=== PATIENT | female | born 1970 | race Caucasian/White ===

== ENCOUNTER → 2020-04-12 09:19 | Outpatient (CLI) | payer OTHER, SELFPAY ==
--- NOTE | ~2020-04-12 | MR_ITS ---
. EXAMINATION: MR foot RT wo con DATE: 04/12/2020 10:15 INDICATION: Right foot pain. TECHNIQUE: Magnetic resonance imaging (MRI) of the right foot was performed without intravenous contr ast. Sequences included sagittal T1-weighted FSE and STIR FSE, long-axis PD-weighted FS FSE and PD-we ighted FSE, and short-axis PD-weighted FS FSE and T1-weighted FSE. COMPARISON: Right foot radiographs 03/13/2019 FINDINGS: Medial ankle ligaments: The superficial and deep components of the deltoid ligament are intact. Lateral ankle ligaments: There are changes of prior sprain of anterior talofibular ligament characterized by increased signal intensity. Calcaneofibular ligament is normal. There are changes of prior sprain of posterior talofib ular ligament characterized by thickening and increased signal intensity. There are changes of prior sprains of anterior and posterior tibiofibular ligaments characterized by increased signal intensity. Tendons: There is a longitudinal split tear of peroneus brevis tendon. Peroneus longus tendon is normal. The a nterior and medial ankle tendons are normal. There is mild Achilles tendinopathy. There is a skin mar ker superficial to the Achilles tendon. Plantar fascia: There is thickening and increased signal involving central band of plantar fascia, consistent with fa sciitis. There is an enthesophyte at the calcaneal attachment. There is bone marrow edema at the calc aneal attachment. Bones/other: Bone alignment is normal. No fracture. There is mild osteoarthritis of first metatarsophalangeal join t. The talar dome is normal. Fluid: There is no joint effusion. IMPRESSION: 1. Mild Achilles tendinopathy. 2. Plantar fasciitis. 3. Changes of prior lateral ankle sprain. 4. Longitudinal split tear of peroneus brevis tendon. Reviewed, dictated and finalized at location A.
== END ==
PROVIDERS: PCP Family Medicine; Visit Provider Podiatrist Foot & Ankle Surgery
DX: M79.671 Pain in right foot (principal); M72.2 Plantar fascial fibromatosis
CPT/HCPCS: 73718

== ENCOUNTER 2020-09-13 01:18 | Day surgery (SDC) | payer OTHER, SELFPAY ==
[2020-09-09 13:42] VITALS: BMI 28.0
--- NOTE | 2020-09-09 13:43 | PC.NURSE ---
PT STATES SHE WAS COVID POSITIVE JUNE 19, 2020. PER REBEKAH WATSON RN, PT MUST PROVIDE A LETTER WITH POSITIVE RESULTS WITH DATE OR SHE WILL NEED TO BE COVID TESTED AT HER APPOINTMENT TOMORROW, 09/10/20 AT 0825. PT NOTIFIED IF SHE IS STILL POSITIVE PER TEST RESULTS TOMORROW, SURGERY WILL LIKELY BE CANCELLED FOR 30 DAYS PER REQUIREMENTS AT THIS TIME. PT GIVEN ALINE DURBIN RN LIASON PHONE NUMBER AND FAX NUMBER TO SEND RESULTS. PT VERBALIZED UNDERSTANDING.
--- NOTE | 2020-09-12 15:32 | WPDANESEPPF ---
Anes - Initial Pre Proc Eval Procedure: Operation Date: 09/13/20 10:30 Proposed Procedures p Partial Plantar Fasciectomy Right Foot - Shakeel Herrmann JR, MD s Tarsal Tunnel Release Right Foot - Shakeel Herrmann JR, MD Date/Time: 09/12/20 15:32 Surgeon: Shakeel Herrmann JR, MD Pre Op Diagnosis: Plantar Fasciitis Right Foot, Tarsal Tunnel Syndro Patient Data Age: 49 Gender: F Height: 1.68 m Weight: 79 kg Allergies Allergy/AdvReac Type Severity Reaction Status Date / Time codeine AdvReac Severe Nausea and Verified 09/13/20 08:55 Vomiting Home Medications Medication Instructions Recorded Confirmed Type sumatriptan succinate 100 mg tablet See Rx Instructions PO .COMPLEX 07/01/20 09/13/20 Rx #10 tablet cetirizine [Zyrtec] 10 mg PO DAILY PRN 09/09/20 09/09/20 History erythromycin 50 mg PO HS 09/09/20 09/09/20 History famotidine [Pepcid] 20 mg PO HS 09/09/20 09/09/20 History omeprazole 20 mg PO HS 09/09/20 09/09/20 History pseudoephedrine HCl [Sudafed 12 120 mg PO Q12-24H PRN 09/09/20 09/09/20 History Hour] albuterol sulfate 90 mcg/actuation 2 puff INHALATION Q4-6H PRN #8.5 g 09/12/20 09/13/20 Rx aerosol inhaler Patient hx anesthesia problems: none Family hx anesthesia problems: none PMFSH Past Medical History Medical History (Updated 09/12/20 @ 15:33 by Kamron Nelson MD) Anxiety Asthma Endometriosis Overweight (BMI 25.0-29.9) PONV (postoperative nausea and vomiting) Family History Family History Father Hypertension Mother Hypertension Social History Social History Smoking status: Never smoker Alcohol intake: never Substance use: never Living arrangements: with family Spiritual care concerns: No Anes - Eval Final PreProcedure Day of Procedure 09/12/20 15:32 Patient weight: overweight Heart: regular rate and rhythm Lungs: clear to auscultation and normal air movement Airway: Mallampati scale class II Neurological: alert and oriented Last oral intake: >/= 8 hours ASA classification: II Emergent: no Anesthetic plan: proceed Anesthesia type and monitoring: general GIVS Informed Consent: The patient's anesthetic plan and its attendant risks and benefits were discussed with the patient/family/POA. Questions were solicited and answers provided to the satisfaction of the patient/family/POA.
--- NOTE | 2020-09-13 07:16 | WPDHPUPDATE1 ---
History and Physical Update Update Date/Time: 09/13/20 07:16 History and Physical has been reviewed, including an updated exam of the patient. There are NO changes in the patient's condition. Risks, benefits, and alternatives have been discussed and questions answered. Patient agrees to proceed with procedure.
[2020-09-13 08:45] VITALS: BP 149/75; PULSE 86; RESP 16; TEMP 36.5; O2SAT 98
[2020-09-13] MEDS: LACTATED RINGERS 1,000 ML 30 ML IV CONT ×2 (09:14→14:43)
[2020-09-13] MEDS: SCOPOLAMINE 1.5 MG PATCH TRANSDERM (09:48)
--- NOTE | 2020-09-13 11:46 | SUR.PREOP ---
Discussed delay with patient who is communicating with her per phone.
--- NOTE | 2020-09-13 12:08 | WPDHPUPDATE1 ---
History and Physical Update Update Date/Time: 09/13/20 12:08 History and Physical has been reviewed, including an updated exam of the patient. There are NO changes in the patient's condition. Risks, benefits, and alternatives have been discussed and questions answered. Patient agrees to proceed with procedure.
[2020-09-13] MEDS: ceFAZolin 2 GM/D5W 50 ML 2 GM/50 ML BAG IVPB (12:23)
[2020-09-13] MEDS: LIDOCAINE HCL 2% LOCAL INJ 20 ML VIAL INFILTRATE (12:50)
[2020-09-13 13:43] VITALS: BP 158/72; PULSE 74; RESP 16; O2SAT 98
--- NOTE | 2020-09-13 13:50 | PM.PROC ---
Procedure Note - Detailed Date of procedure: 09/13/20 Pre-op diagnosis: Plantar Fasciitis Right Foot, Tarsal Tunnel Syndro Post-op diagnosis: same Procedure performed: 1. Partial plantar fasciectomy right foot 2. Tarsal tunnel release right foot Anesthesia: GLMA and local Surgeon: Shakeel Herrmann JR, DPM Estimated blood loss (mL): 1 Drains: No Packing: No Pathology: none sent Complications: No immediate complications Condition: stable Disposition: same day Findings: Under mild sedation, the patient was brought in to the operating room, placed on the operating table in the supine position. A pneumatic ankle tourniquet was placed about the patient's right thigh. Following general anesthesia, local anesthesia was obtained about the right lower extremity utilizing 20 mL of Exparel to the proximal common peroneal nerve and proximal tibial nerve. The foot was then scrubbed, prepped, and draped in the usual aseptic manner. An Esmarch bandage was then used to exsanguinate the patient's right foot and distal leg and the pneumatic thigh tourniquet was then inflated to 300mmHg. Next, an incision was made starting distal to the medial tubercle of the calcaneus extending distally 3cm. All bleeders were cauterized as necessary. Next the dissection was continued down to the plantar fascia it was exposed medially and laterally with [employer] [place] [employer] retractors. The proximal plantar fascia was noted to be thick and very narrow at its origin at the medial tubercle of the calcaneus. The medial two thirds of the plantar fascia was transected and a 4mm portion was excised and passed from the operative site. The wound site was flushed with sterile saline. The deep subcutaneous tissue was reapproximated with 2.0 Vicryl and the skin was reapproximated with 2.0 Prolene and 3.0 Prolene in Vertical mattress and simple interrupted suture technique. Attention was then directed to the medial aspect of the right foot and ankle. A 10cm curvilinear incision was made starting 5cm cephalad to the medial malleolus extending distally to the medial instep. All bleeders were ligated and cauterized as necessary. Utilizing blunt dissection the flexor retinaculum was identified and very carefully transected in small 1cm increments making sure to watch the deep neurovascular bundle. After complete release of the tarsal tunnel including the abductor canal as well as the calcaneal branches of the tibial nerve, the tibial nerve was bluntly dissected with a curved mosquito. The tibial nerve was discolored with adipose like changes and thickness to the nerve. These intraoperative findings coincide with the patients tarsal tunnel paresthesias. Next the subcutaneous layer was reapproximated with 3.0 Vicryl and the skin was reapproximated with 4.0 Monocryl in running subcuticular suture fashion technique. Upon completion of the procedure, the medial incision was dressed with Steri-strips, Adaptic, 4x4s, Kerlix, and Coban, the plantar incision was dressed with adaptic, 4.4 gauze, Kerlix and Coban. The pneumatic thigh tourniquet was then deflated and a prompt hyperemic response was noted to all digits of the right foot foot. A below knee cast was then applied to the right lower extremity with the foot 90 degrees to the leg. The patient did very well with the procedure and the anesthesia. The patients was transferred to the recovery room with vital signs stable and vascular status intact to all toes of the affected foot. Following a period of postoperative monitoring, the patient will be discharged home on the following written and oral postoperative instructions: 1. The patient should keep the dressing clean, dry, and intact. Use a cast protector bag with showers. 2. The patient will be strictly protected weight bearing with a surgical shoe. 3. Patient should ice and elevate the right foot when at rest. 4. The patient is to contact Dr. Herrmann for all postop care and if any problems arise. 5. Prescriptions w
[2020-09-13 14:10] VITALS: BP 138/77; PULSE 65; RESP 16; O2SAT 98
--- NOTE | 2020-09-13 14:24 | PM.OP ---
Procedure Note - Brief Procedure Note - Brief Date of procedure: 09/13/20 Pre-op diagnosis: Plantar Fasciitis Right Foot, Tarsal Tunnel Syndro Procedure performed: 1. Partial plantar fasciectomy right foot 2. Tarsal tunnel release right foot Anesthesia: GLMA and local Surgeon: Shakeel Herrmann JR, MD Estimated blood loss (mL): 1 Drains: No Packing: No Pathology: none sent Complications: No immediate complications Condition: stable Disposition: same day
[2020-09-13] MEDS: fentaNYL CITRATE INJ (*CRX) 100 MCG/2 ML VIAL 25 MCG IV PUSH (14:25)
[2020-09-13 14:43] VITALS: BP 117/55; PULSE 86; RESP 16; TEMP 36.2; O2SAT 98
[2020-09-13 15:20] VITALS: BP 127/71; PULSE 83; RESP 16; O2SAT 98
[2020-09-13] MEDS: oxyCODONE HCL (*CRX) 5 MG TAB IR PO (15:37)
== END 2020-09-13 15:50 | disposition home or self-care (01) ==
PROVIDERS: Family Provider Family Medicine; PCP Family Medicine; Visit Provider Podiatrist Foot & Ankle Surgery
PROC: (CPT 28119; principal; 2020-09-13 10:30)
PROC: (CPT 28035; 2020-09-13 10:30)
DX: M72.2 Plantar fascial fibromatosis (principal); G57.51 Tarsal tunnel syndrome, right lower limb; J45.909 Unspecified asthma, uncomplicated; F41.9 Anxiety disorder, unspecified
CPT/HCPCS: 28060; 28035; A9270; C9290; J0690; J1100; J2250; J2405; J2704; J3010; J7120

== ENCOUNTER 2020-09-26 11:16 | Outpatient (CLI) | payer OTHER, SELFPAY ==
--- NOTE | ~2020-09-26 | US_ITS ---
EXAMINATION: US venous doppler LE RT EXAM DATE: 09/26/2020 11:43 INDICATION: Right lower extremity swelling and pain. TECHNIQUE: Multiple grayscale, color flow and Doppler images of the right lower extremity deep venous system were obtained and reviewed. There is no prior study for comparison. FINDINGS: The right common femoral, femoral and profunda veins demonstrate normal color flow, respira tory variation, augmentation and compressibility. Compressibility, color flow confirmed within the r ight popliteal, posterior tibial, peroneal, and greater saphenous veins. IMPRESSION: 1. No right lower extremity deep venous thrombosis. Reviewed, dictated and finalized at location B. SS LEAD
== END 2020-09-26 11:17 | disposition home or self-care (01) ==
PROVIDERS: PCP Family Medicine; Visit Provider Podiatrist Foot & Ankle Surgery
DX: M79.661 Pain in right lower leg (principal); M79.89 Other specified soft tissue disorders
CPT/HCPCS: 93971

== ENCOUNTER → 2022-07-02 16:36 | Outpatient (CLI) | payer OTHER, SELFPAY ==
--- NOTE | ~2022-07-02 | XR_ITS ---
EXAMINATION: XR chest 2V 07/02/2022 16:56 INDICATION: Cough PROCEDURE: 2 view chest COMPARISON: No prior studies for comparison. FINDINGS: The lungs are clear. The cardiomediastinal silhouette is within normal limits. There are no pleural effusions. There is no pneumothorax suspected. IMPRESSION: 1: NO ACUTE CARDIOPULMONARY DISEASE. Reviewed, dictated and finalized at location A. 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
--- NOTE | ~2022-07-02 | XR_ITS ---
XR sacroiliac joints min 3V DATE: 07/02/2022 16:56 INDICATION: Tailbone pain TECHNIQUE: AP and bilateral oblique views of sacroiliac joints COMPARISON: None FINDINGS: Normal alignment at the sacroiliac joints without evidence of erosive change or ankylosis o r significant degenerative change. No sacral or coccygeal fracture or bone destruction is evident. No rmal alignment at the pubic symphysis. Hip joint spaces appear symmetric and relatively preserved. Bowel sutures overlie the right midabdomen. IMPRESSION: Negative sacroiliac joints Reviewed, dictated and finalized at Location A. Reviewed, dictated and finalized at location B. [employer] IMPRESSION: Negative sacroiliac joints
== END ==
PROVIDERS: PCP Family Medicine; Visit Provider Family Medicine
DX: R05.9 Cough, unspecified (principal); M62.838 Other muscle spasm; R53.1 Weakness; M53.3 Sacrococcygeal disorders, not elsewhere classified
CPT/HCPCS: 71046; 72202

== ENCOUNTER 2022-08-07 14:41 | Outpatient (CLI) | payer OTHER, SELFPAY ==
[2022-08-07 15:45] VITALS: PULSE 96; RESP 20
--- NOTE | 2022-08-07 16:40 | PCRCNOTE ---
PATIENT HAD CHRONIC COUGH, UNABLE TO FINISH A SENTENCE WITHOUT COUGHING. PFT TESTING WAS DIFFICULT. COUGH WAS NONPRODUCTIVE. SHE COMPLETED OUTPATIENT PFTS. I CALLED PULMONARY OFFICE AND I REQUESTED ALBUTEROL NEB TREATMENT TELEPHONE VERBAL ORDER WITH MEGHANN SHI. ALBUTEROL BREATHING TREATMENT GIVEN, UNFORTUNATELY THIS DIDNT HELP COUGH. PFT POST SPIROMETRY WAS AFTER 5MG ALBUTEROL NEB TREATMENT. PT DOES HAVE RESCUE INHALER WITH HER AT ALL TIMES.
--- NOTE | 2022-08-10 07:07 | P.PCNPFT_ITS ---
PFT Procedure Performed PFT Procedure Performed Spirometry with Pre/Post Bronchodilator Plethysmography (Lung Vol) Flow Vol Loop PFT Interpretation This is a pulmonary function test with pre and post-bronchodilator spirometry, plethysmography and diffusing capacity. The test was performed and results interpreted in accordance with the 2019 and 2005 ATS/ERS Task Force guidelines respectively using the Global Lung Function Initiative-2012 reference equations. Patient demonstrated good effort and cooperation. Reproducibility criteria were met. The quality of the pre bronchodilator spirometry maneuver was Grade A and post bronchodilator spirometry maneuver was Grade A. of note the patient was coughing throughout the entire test. She was unable to hold her breath for the DLCO maneuver. Findings: Spirometry: The contour the inspiratory and expiratory flow tracing are normal. The pre bronchodilator FVC is 3.01 L, 81% predicted. The pre bronchodilator FEV1 is 2.31 L, 78% predicted. The pre bronchodilator FEV1: FVC ratio 77%. The post bronchodilator FVC is 2.91 L, representing a 3% decrease. The post bronchodilator FEV1 is 2.26 L, representing a 2% decrease. The post bronchodilator FEV1: FVC ratio 78%. Plethysmography: The total lung capacity is 6.48 L, 121% predicted. The functi onal residual capacity is 4.28 L, 142% predicted. The residual volume is 3.47 L, 181% predicted. Impression: The spirometry is normal without evidence of an obstructive abnormality. There is no significant improvement after inhaling a single dose of albuterol. The total lung capacity is normal with an increased functional residual capacity and residual volume. This is an abnormal but nonspecific lung volume pattern. There are no prior studies for comparison
== END 2022-08-07 14:42 | disposition home or self-care (01) ==
LOC: ANHPFT 14:42
PROVIDERS: PCP Family Medicine; Visit Provider Family Medicine
DX: R05.3 Chronic cough (principal)
CPT/HCPCS: 94640

== ENCOUNTER 2022-11-06 08:58 | Outpatient (CLI) | payer OTHER, SELFPAY ==
--- NOTE | ~2022-11-06 | CT_ITS ---
EXAMINATION: CT diagnostic chest wo con DATE: 11/06/2022 09:21 INDICATION: Chronic cough TECHNIQUE: Computed tomography (CT) of the chest was performed without intravenous contrast. The dose -length product (DLP) was 174.38 mGy-cm. Automated exposure control and iterative reconstruction tech nique were employed. COMPARISON: None FINDINGS: The lungs are free of acute opacities. There is a 3 mm nodule in the left lung apex. No ple ural effusion or pneumothorax. The heart size is normal. There is a 12 mm x 10 mm oval hyperdense mas s of the anterior mediastinum abutting the pericardium on image 58. The liver is diffusely low in att enuation when compared with the spleen, consistent with hepatic steatosis. There is mild thoracic spo ndylosis. The gallbladder is surgically absent. IMPRESSION: 1. No CT correlate for the patient's symptoms. 2. 12 mm hyperdense mass of the anterior mediastinum. Differential is broad but includes ectopic thyr oid, thymoma, or less likely lymphoma. Thyroid scintigraphy is recommended to evaluate for ectopic th yroid. Reviewed, dictated and finalized at location B. IMPRESSION: 1. No CT correlate for the patient's symptoms. 2. 12 mm hyperdense mass of the anterior mediastinum. Differential is broad but includes ectopic thyroid, thymoma, or less likely lymphoma. Thyroid scintigrap hy is recommended to evaluate for ectopic thyroid.
== END 2022-11-06 08:59 | disposition home or self-care (01) ==
PROVIDERS: PCP Family Medicine; Visit Provider Physician Assistant
DX: J45.909 Unspecified asthma, uncomplicated (principal)
CPT/HCPCS: 71250

== ENCOUNTER 2022-11-16 13:42 | Outpatient (CLI) | payer OTHER, SELFPAY ==
--- NOTE | ~2022-11-16 | NM_ITS ---
EXAMINATION: NM thyroid scan w uptake DATE: 11/17/2022 14:25 INDICATION: Anterior mediastinal mass. Assess for ectopic thyroid. COMPARISON: Chest CT dated 11/06/2022 TECHNIQUE: 361 microcuries I-123 was administered orally in capsule form. Scintigraphic images of th e thyroid gland were obtained at 24 hours. Thyroid uptake was calculated by the technologist. FINDINGS: The thyroid uptake is 30.8% (normal 10-30%), with the right lobe measuring 16.6% uptake and the left 15%. There is no focal area of decreased or increased activity to suggest hypofunctioning or hyperfun ctioning nodule. No evident uptake in the region of the anterior mediastinal nodule of concern on naila or CT to suggest ectopic thyroid. IMPRESSION: 1. Normal thyroid scintigraphy with borderline elevated 24-hour iodine uptake which could be seen wi th Graves' disease. 2. No uptake in the region of the anterior mediastinal nodule of concern identified on prior CT to stevenson ggest ectopic thyroid tissue. Reviewed, dictated and finalized at location A. IMPRESSION: 1. Normal thyroid scintigraphy with borderline elevated 24-hour iodine uptake which could be seen with Graves' disease. 2. No uptake in the region of the anterior mediastinal nodule of concern identi fied on prior CT to suggest ectopic thyroid tissue.
== END 2022-11-16 13:43 | disposition home or self-care (01) ==
PROVIDERS: PCP Family Medicine; Visit Provider Physician Assistant
DX: J98.59 Other diseases of mediastinum, not elsewhere classified (principal)
CPT/HCPCS: 78014; A9516

== ENCOUNTER → 2022-11-24 15:08 | Outpatient (CLI) | payer OTHER, SELFPAY ==
--- NOTE | ~2022-11-24 | XR_ITS ---
EXAMINATION: XR cervical spine 4-5V DATE: 11/24/2022 15:20 INDICATION: Bilateral hand numbness. TECHNIQUE: 4 views of cervical spine were obtained. COMPARISON: None. FINDINGS: There is 7 degrees dextrocurvature of cervical spine. Vertebral body heights are normal. Th ere is mildly decreased disc height at C4-C5, C5-C6, and C6-C7. There is multilevel mild facet joint osteoarthritis. There is mild central canal stenosis at C5-C6. No prevertebral soft tissue swelling. IMPRESSION: 1. Mild cervical spondylosis. Reviewed, dictated and finalized at location A.
== END ==
PROVIDERS: PCP Family Medicine; Visit Provider Family Medicine
DX: M47.812 Spondylosis without myelopathy or radiculopathy, cervical region (principal); R20.0 Anesthesia of skin
CPT/HCPCS: 72050

== ENCOUNTER → 2022-12-16 15:19 | Outpatient (CLI) | payer OTHER, SELFPAY ==
--- NOTE | ~2022-12-16 | CT_ITS ---
EXAMINATION: CT sinus wo con DATE: 12/16/2022 15:30 INDICATION: Chronic sinusitis TECHNIQUE: Computed tomography (CT) of the paranasal sinuses was performed without intravenous contra st. The dose-length product was 414.22 mGy-cm. Automated exposure control and iterative reconstructio n technique were employed. COMPARISON: None FINDINGS: Paranasal sinuses are pneumatized. No significant mucosal thickening. No abnormal air-fluid levels. No mucoperiosteal reaction. Rightward nasal septal deviation. Ostiomeatal units are patent. Mastoids are pneumatized. IMPRESSION: 1. No significant sinus disease. Reviewed, dictated and finalized at location B.
== END ==
PROVIDERS: PCP Family Medicine; Visit Provider Otolaryngology
DX: J32.9 Chronic sinusitis, unspecified (principal)
CPT/HCPCS: 70486

== ENCOUNTER 2022-12-17 09:01 | Outpatient (CLI) | payer OTHER, SELFPAY ==
--- NOTE | 2022-12-17 11:00 | NEURO_ITS ---
Impression: # Complains of nocturnal paresthesia of hands # Early evolving Carpal Tunnel Syndrome bilaterally, left more than right. # No ulnar neuropathy. # Normal needle/EMG exam. Nerve Conduction Studies Anti Sensory Summary Table Stim Site NR Peak (ms) P-T Amp (?V) Site1 Site2 Delta-P (ms) Dist (cm) [place] (m/s) Left Median Anti Sensory (2-3nd Digit) Wrist 2.4 77.8 Wrist 2-3nd Digit 2.4 14.0 58 Wrist 2.5 64.9 Wrist 2-3nd Digit 2.4 14.0 58 Right Median Anti Sensory (2-3nd Digit) Wrist 2.4 59.6 Wrist 2-3nd Digit 2.4 14.0 58 Wrist 2.4 76.7 Wrist 2-3nd Digit 2.4 14.0 58 Left Radial Anti Sensory (Base 1st Digit) Wrist 2.8 12.7 Wrist Base 1st Digit 2.8 0.0 Right Radial Anti Sensory (Base 1st Digit) Wrist 1.8 51.7 Wrist Base 1st Digit 1.8 0.0 Left Ulnar Anti Sensory (5th Digit) Wrist 2.1 67.4 Wrist 5th Digit 2.1 14.0 67 Right Ulnar Anti Sensory (5th Digit) Wrist 1.9 46.9 Wrist 5th Digit 1.9 14.0 74 Motor Summary Table Stim Site NR Onset (ms) O-P Amp (mV) Site1 Site2 Delta-0 (ms) Dist (cm) [place] (m/s) Left Median Motor (Abd Poll Brev) Wrist 3.6 3.3 Elbow Wrist 5.0 28.0 56 Elbow 8.6 2.1 Right Median Motor (Abd Poll Brev) Wrist 3.3 3.4 Elbow Wrist 4.7 26.0 55 Elbow 8.0 3.1 Left Ulnar Motor (Abd Dig Minimi) Wrist 2.3 5.3 A Elbow Wrist 5.0 28.0 56 A Elbow 7.3 4.7 Right Ulnar Motor (Abd Dig Minimi) Wrist 2.3 4.6 A Elbow Wrist 4.7 27.0 57 A Elbow 7.0 3.9 F Wave Studies NR F-Lat (ms) L-R F-Lat (ms) Left Median (Mrkrs) (Abd Poll Brev) 27.08 1.18 Right Median (Mrkrs) (Abd Poll Brev) 28.26 1.18 Left Ulnar (Mrkrs) (Abd Dig Min) 27.89 0.67 Right Ulnar (Mrkrs) (Abd Dig Min) 27.22 0.67 EMG Side Muscle Nerve Root Ins Act Fibs Amp Dur Recrt Comment Right 1stDorInt Ulnar C8-T1 Nml Nml Nml Nml Nml Right Ext Indicis Radial (Post Int) C7-8 Nml Nml Nml Nml Nml Right Ext Digitorum Radial (Post Int) C7-8 Nml Nml Nml Nml Nml Right BrachioRad Radial C5-6 Nml Nml Nml Nml Nml Right PronatorTeres Median C6-7 Nml Nml Nml Nml Nml Right Abd Poll Brev Median C8-T1 Nml Nml Nml Nml Nml Left 1stDorInt Ulnar C8-T1 Nml Nml Nml Nml Nml Left Ext Indicis Radial (Post Int) C7-8 Nml Nml Nml Nml Nml Left Ext Digitorum Radial (Post Int) C7-8 Nml Nml Nml Nml Nml Left BrachioRad Radial C5-6 Nml Nml Nml Nml Nml Left PronatorTeres Median C6-7 Nml Nml Nml Nml Nml Left Abd Poll Brev Median C8-T1 Nml Nml Nml Nml Nml MTDD
== END 2022-12-17 09:02 | disposition home or self-care (01) ==
LOC: ANHNEURO 09:02
PROVIDERS: PCP Family Medicine; Visit Provider Family Medicine
DX: R20.2 Paresthesia of skin (principal)
CPT/HCPCS: 95886; 95911

== ENCOUNTER 2023-03-31 09:05 | Outpatient (CLI) | payer OTHER, SELFPAY ==
--- NOTE | 2023-04-17 09:25 | WPDHOMESLEEP ---
Sleep Study - Home Unattended Date of Study: 03/31/23 Ordering Provider: PAVAN Brooks Interpreting Provider: Manasa Navarrete, DO Home Sleep Study Type: Watch PAT Height: 1.68 m Weight: 86.183 kg Body Mass Index: 30.7 Neck Circumference (inches): 14.25 [place]: 16 Reason for Sleep Study Unrefreshing sleep Sleep History The patient is a 52-year-old female that had a sleep study ordered by the pulmonary group for evaluation of sleep apnea. The patient occasionally awakens from sleep short of breath. She occasionally awakens at night with heartburn, belching or cough. She occasionally snores but it is rarely loud enough others complain. She occasionally has trouble sleeping which she has a cold. She occasionally wakes gasping for air throughout the night. She occasionally has breathing problems at night observed by herself or others. She denies sweating excessively at night. She occasionally has heart palpitations or irregular heart beats during the night. She occasionally falls asleep during the day but never while driving. She denies sleep paralysis and cataplexy. She occasionally has trouble at school or work due to sleepiness. She frequently experiences vivid dream like scenes upon awakening or falling asleep. She denies feeling afraid of going to sleep. She rarely has nightmares. She frequently remembers her dreams. She occasionally has thoughts racing through her mind. She rarely feels sad or depressed. She occasionally has anxiety. She occasionally has muscular tension. She rarely notices parts of her body jerks. She denies kicking during the night. She denies having crawling aching feelings in her legs but occasionally has leg pain during the night. She denies grinding her teeth during sleep and denies awakening with morning jaw pain. She is frequently bothered by pain during the day but rarely awakened by pain during the night. She constantly wakes up feeling stiff in the morning. She denies waking up with sore or achy muscles. She rarely wakes up with pain in the neck, spine or other joints. She goes to bed between 10-10:30 p.m. on weekdays and 11:00 p.m. on the weekends. It takes her 10 minutes to fall asleep. She wakes up 1-2 times throughout the night to urinate but is able to fall back asleep within 5-15 minutes. She wakes up at 6:00 a.m. on weekdays and at 10:00 a.m. on the weekends. She typically gets a minimum of 8 hours of sleep per night. She spends less than 10 minutes in bed after waking up in the morning. She currently lives with her and adult son. She will consume caffeinated tea within 2 hours of bedtime. She denies engaging in physical exercise before bedtime. She will watch television before falling asleep. She will occasionally take naps in the afternoon or the evening but they are not refreshing. She consumes 2 caffeinated beverages per day. She denies tobacco, alcohol and recreational drug use. [facility] Past Medical History Medical History Anxiety Asthma Endometriosis PONV (postoperative nausea and vomiting) Surgical History Surgical History History of thoracic surgery s/p resection of mediastinal mass 01/08/23. 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 Family History Family History Father Hypertension Mother Hypertension Social History Social History Smoking status: Never smoker Alcohol intake: never Substance use: never Lack of Transportation: No Lack of Food: Never True Current Housing: I Have Housing Concerned About Future Housing: No Difficulty Paying Gas/Electric Bills: No Currently Unemployed: No Education: Master's Degree or Higher Difficulty w/ Childcare or Family Care: No Living arrangements: w
[2023-04-17 09:35] VITALS: BMI 30.7
== END 2023-04-01 12:40 | disposition home or self-care (01) ==
LOC: ANHCSM 09:06
PROVIDERS: PCP Family Medicine; Visit Provider Physician Assistant
DX: G47.10 Hypersomnia, unspecified (principal)
CPT/HCPCS: 95800

== ENCOUNTER 2023-04-29 20:07 | Observation (INO) | payer OTHER, SELFPAY ==
--- NOTE | ~2023-04-29 | CT_ITS ---
EXAMINATION: CT abdomen pelvis w con DATE: 04/30/2023 01:45 INDICATION: Kidney stone. Right flank pain. Low abdominal pain. TECHNIQUE: Computed tomography (CT) of the abdomen and pelvis was performed with 100 mL Omnipaque 350 intravenous contrast. Automated exposure control and iterative reconstruction technique were employe d. The dose-length product was 612.58 mGy-cm. COMPARISON: CT abdomen 08/31/2006 FINDINGS: The visualized portions of the lung bases demonstrate mild atelectasis. No pleural effusion . The heart size is normal. No pericardial effusion. There is diffuse hepatic steatosis. There are ch anges of cholecystectomy. The spleen, pancreas, adrenal glands, and left kidney are normal. There is mild right proximal hydronephrosis. Right-sided urothelial thickening is noted. There is a right inte rnal ureteral stent in expected position. There is a 5 mm stone in distal right ureter. There is diff use bladder wall thickening with urothelial enhancement. There are changes of right hemicolectomy. Th ere are no pathologically enlarged lymph nodes. There is no free intraperitoneal fluid. There is mild thoracic lumbar spondylosis. IMPRESSION: 1. 5 mm stone in distal right ureter with right hydronephrosis and internal ureteral stent in expecte d position. 2. Cystitis and right-sided pyelitis. Reviewed, dictated and finalized at location E. IMPRESSION: 1. 5 mm stone in distal right ureter with right hydronephrosis and internal ure teral stent in expected position. 2. Cystitis and right-sided pyelitis.
[2023-04-29 20:22] VITALS: BP 156/95; PULSE 102; RESP 20; TEMP 36.1; O2SAT 97
[2023-04-29 20:49] LABS: Basophils Percent Auto 0.3 % (0.2-1.2); Eosinophils Absolute Auto 0.2 K/mm3 (0-0.3); Eosinophils Percent Auto 1.6 % (0-4.4); Hematocrit 40.3 % (37.0-47.0); Hemoglobin 13.2 g/dL (12.0-15.0); Immature Granulocyte Absolute 0.05 K/mm3 (0.00-0.031); Immature Granulocyte Percent A 0.3 % (0-0.5); Lymphocytes Absolute Auto 2.93 K/mm3 (0.9-3.2); Mean Corpuscular HGB Conc 32.8 g/dl (32-36); Mean Corpuscular Volume 94.6 fl (80-100); Mean Platelet Volume 10.4 fl (7.4-10.4); Monocytes Percent Auto 6.6 % (2.6-8.5); Neutrophils Absolute Auto 10.4 K/mm3 (1.3-6.7); Neutrophils Percent Auto 71.2 % (45.5-73.1); Platelet Count Result 323 k/mm3 (150-375); Red Blood Count 4.26 M/mm3 (4.2-5.4); Red Cell Distribution Width 12.8 % (11.5-14.5); White Blood Count 14.7 K/mm3 (4.5-10.0)
[2023-04-29 20:58] LABS: Alanine Aminotransferase 51 U/L (6-35); Albumin Level 4.4 g/dL (3.5-5.1); Alkaline Phosphatase 92 U/L (38-126); Anion Gap 8 mmol/L (8-16); Aspartate Amino Transferase 53 U/L (14-36); Bilirubin,Total 0.4 mg/dL (0.2-1.3); Blood Urea Nitrogen 14 mg/dL (7-17); Calcium 8.9 mg/dL (8.4-10.2); Carbon Dioxide 24 mmol/L (22-30); Chloride 107 mmol/L (98-107); Estimated CRCL calculation 102 ml/min; Estimated Glomerular Filt Rate > 60; Glucose 100 mg/dL (65-110); Potassium 3.4 mmol/L (3.4-5.0); Sodium 139 mmol/L (137-145)
[2023-04-29 21:18] LABS: Appearance Urine Turbid (Clear); Bacteria Urine 1+ /hpf; Bilirubin Urine 1+ (Negative); Blood Urine 3+ (Negative); Color Urine Red (Yellow); Glucose Urine UA Negative (Negative); Ketones Urine Negative (Negative); Leukocyte Esterase Ur 3+ LEU/UL (Negative); Nitrate Urine Positive (Negative); Protein Urine 4+ mg/dL (Negative); RBC Urine >100 /hpf (0-2); Specific Grav Ur 1.019 (1.001-1.035); Squamous Epithelial Cell Urine Occasional /hpf (Few); Urobilinogen Urine 0.2 mg/dL (<2.0); WBC Clumps Urine Present /HPF; WBC Urine >100 /hpf; pH Urine 6.5 (5.0-9.0)
[2023-04-29 21:20] LABS: Add Urine Microscopic? YES
--- NOTE | 2023-04-29 23:52 | ED.FEMALEGU ---
HPI - Female Genitourinary General Chief complaint: Urogenital-Female <Mary Cooper PA-C - Last Filed: 04/30/23 04:18> Stated complaint: urinary symptoms <Mary Cooper PA-C - Last Filed: 04/30/23 04:18> Time Seen by Provider: 04/29/23 22:55 <Mary Cooper PA-C - Last Filed: 04/30/23 04:18> History of Present Illness HPI Narrative: 52-year-old female with a history of recently diagnosed right ureteric calculus reports for evaluation for significantly worsening right back pain and right lower abdominal pain today. Patient was seen at [facility] 5 days ago where she was found to have a 5 to 6 mm stone in her right ureter and was admitted for stent placement the following day. She was discharged the evening after admission and is scheduled to have lithotripsy next week. She started [place] and Flomax yesterday, however today had significantly worsening pain despite these medications. Patient and her state they called her urologist office and was advised to go to the emergency department. The patient reports nausea, no vomiting. Denies aggravating or alleviating factors. Denies fever but does report chills. <Mary Cooper PA-C - Last Filed: 04/30/23 04:18> Related Data Home medications: Home Medications Medication Instructions Recorded Confirmed cetirizine 10 mg tablet (Zyrtec) 10 mg PO DAILY PRN Allergy Symptoms 09/09/20 04/29/23 eletriptan 40 mg tablet 40 mg PO ONCE PRN Migraine Headache 07/02/22 04/29/23 omeprazole 20 mg capsule,delayed 20 mg PO BID 07/02/22 04/29/23 release erythromycin 250 mg tablet 50 mg PO DAILY 02/23/23 04/29/23 gabapentin 100 mg capsule 100 mg PO TID 02/23/23 04/29/23 topiramate 50 mg tablet 50 mg PO HS 02/23/23 04/29/23 hydrocodone 5 mg-acetaminophen 325 1 - 2 tablet PO Q6H PRN Pain 04/29/23 04/29/23 mg tablet oxybutynin chloride 5 mg 5 mg PO DAILY 09/28/23 09/28/23 tablet,extended release 24 hr tamsulosin 0.4 mg capsule 0.4 mg PO HS 04/29/23 04/29/23 <Mary Cooper PA-C - Last Filed: 04/30/23 04:18> Allergies/Adverse reactions: Allergies Allergy/AdvReac Type Severity Reaction Status Date / Time adhesive tape Allergy Intermediate Blister Verified 04/29/23 22:52 dexamethasone Allergy Intermediate Blister Verified 04/29/23 22:52 codeine AdvReac Severe Nausea and Verified 04/29/23 22:52 Vomiting <Mary Cooper PA-C - Last Filed: 04/30/23 04:18> Review of Systems Review of Systems: CONSTITUTIONAL: See HPI EYES: Denies visual changes, redness, or discharge. ENT: Denies rhinorrhea, congestion, sore throat, or otalgia. CARDIOVASCULAR: Denies chest pain, palpitations, or edema. RESPIRATORY: Denies cough or dyspnea. GASTROINTESTINAL: See HPI GENITOURINARY: See HPI SKIN: Denies rash or itching. MUSCULOSKELETAL: Denies back pain, joint pain, or myalgia. NEUROLOGIC: Denies headache, numbness, dizziness, or weakness. PSYCHIATRIC: Denies anxiety or depression. <Mary Cooper PA-C - Last Filed: 04/30/23 04:18> [facility] Past Medical History Medical History: Medical History Anxiety Asthma Endometriosis PONV (postoperative nausea and vomiting) <Mary Cooper PA-C - Last Filed: 04/30/23 04:18> Surgical History Surgical History: Surgical History History of thoracic surgery s/p resection of mediastinal mass 01/08/23. 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 <Mary Cooper PA-C - Last Filed: 04/30/23 04:18> Family History Family History: Family History Father Hypertension Mother Hypertension <Mary Cooper PA-C - Last Filed: 04/30/23 04:18> Social History Social History: Social History Smoking status: Never smoker Alcohol intake: never
[2023-04-30] VITALS (24 sets, daily range): BP systolic 101–121; BP diastolic 51–76; PULSE 67–96; RESP 13–23; TEMP 36.4–36.7; O2SAT 95–100; BMI 29.9
[2023-04-30] MEDS: HYDROmorphone HCL INJ (*CRX) 1 MG/ML SYR IV PUSH (00:08)
[2023-04-30] MEDS: SODIUM CHLORIDE 0.9% IV 1,000 ML 999 ML IV CONT ×2 (00:08→01:18)
[2023-04-30] MEDS: ONDANSETRON INJ 4 MG/2 ML VIAL IV PUSH ×2 (00:09→11:22)
[2023-04-30 00:40] LABS: Lipase 37 U/L (23-300)
[2023-04-30 00:41] LABS: Lactic Acid Reflex 1.3 mmol/L (0.7-2.0)
[2023-04-30] MEDS: SODIUM CHLORIDE 0.9% IV 500 ML 999 ML IV CONT (01:19)
[2023-04-30] MEDS: ACETAMINOPHEN 500 MG TABLET 1000 MG PO (03:40)
[2023-04-30] MEDS: PROCHLORPERAZINE EDISYLATE 10 MG/2 ML VIAL IV PUSH (03:41)
[2023-04-30] MEDS: diphenhydrAMINE HCl INJ 50 MG/ML VIAL 25 MG IV PUSH (03:41)
--- NOTE | 2023-04-30 05:48 | PM.IMHP ---
H&P: HPI History of Present Illness Date/Time: 04/30/23 05:48 Chief Complaint: Abdominal pain Narrative: 52-year-old female asthma, anxiety and recent ureteral stent placement for obstructing nephrolithiasis here for right-sided back and abdominal pain with hematuria. Patient presented to outside hospital on April 24 for right-sided back and abdominal pain. She was discovered to have a 5-6 mm stone in her right ureter hydronephrosis. she was admitted to the hospital the stent was placed the following day . She was discharged later that day. She initially had intermittent right back, flank pain radiating into the groin. She also had hematuria. Over the next few days, patient states the pain has become more constant and increasing severity. She also has noted that hematuria has worsened. She is having frequent urinations of small volume. She denies any urinary clots. She has been having chills but no fever. She does state that she has been taking Tylenol frequently. She did call into the urology office and was prescribed oxybutynin, Flomax and [place] which she started 2 days ago. He has been having nausea but no vomiting. Review of systems was negative except she does have a chronic cough. She was scheduled for lithotripsy today. Because of the worsening pain, the urology exchange was called and patient was advised to go to the emergency room for evaluation. In the Emergency room, patient was tachycardic 102. She was afebrile. Blood pressure was 156/95. White count was 14.7K but with normal renal function. AST and ALT are mildly elevated. Lactic acid 1.3. Urinalysis showed 4+ protein, 3+ blood, positive nitrates, 3+ leukocyte esterase, >100 RBC and >[address] scan of the abdomen and pelvis shows a 5 mm stone in the distal right ureter with right hydronephrosis internal ureteral stent in expected position. Also shows cystitis with right-sided pyelitis. She was treated with Zofran, Tylenol, Compazine, Dilaudid, and IV fluids. Rocephin was given. She was admitted for further care. Review of Systems Review of Systems: All systems reviewed & are unremarkable except as noted in HPI and below PMFSH Past Medical History Medical History Anxiety Asthma Endometriosis Esophageal reflux Migraines PONV (postoperative nausea and vomiting) Small intestinal bacterial overgrowth (SIBO) 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 Surgical History Surgical History History of bowel resection for SBO related to endometriosis History of thoracic surgery s/p resection of mediastinal mass 01/08/23. 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 S/P breast lumpectomy benign pathology Status post abdominal hysterectomy and salpingo-oophorectomy unilateral oophorectomy Status post appendectomy Status post cholecystectomy Status post surgical removal of pilonidal cyst Status post tonsillectomy Family History Family History Father Hypertension Mother Hypertension Social History Social History Social History: Patient lives at home with her . She has 3 grown children that are college age. She is a lifelong nonsmoker. No alcohol use. No drug use. No history of drug use in the past. She is a full code. She nominates her to be the individual who would make medical decisions for her if she is unable. Smoking status: Never smoker Alcohol intake: never Substance use: never Lack of Transportation: No Lack of Food: Never True Current Housing: I Have Housing Concerned About Future Housing: No Difficulty Paying Gas/Electric Bills: No Difficulty Paying for Meds: No Currently Unemployed: No Education: Master's Degree or Higher Difficulty w/ Childcare or Family Care: No Living
--- NOTE | 2023-04-30 06:10 | ADMGEN ---
This patient, Natalie Saunders, was admitted to 2 Medical Room 259-01. Patient/family oriented to hospital policies and general routines including ID bracelet, bed and alarms, visiting hours, pain management, procedures, bathroom and other care routines, personal items, smoking policy, room service/diet, and visiting hours. Information on how to activate the Rapid Response Team has been discussed. Patient/Family are encouraged to report perceived risks to care and to ask questions if they do not understand what they are told or what they should do.
[2023-04-30] MEDS: HYDROcodone/acetaminophen (*CRX) 5-325 MG TABLET 1 TAB PO ×2 (11:19→17:57)
[2023-04-30] MEDS: GABAPENTIN 100 MG CAPSULE PO ×2 (13:01→16:52)
--- NOTE | 2023-04-30 13:26 | WPDURCON ---
Assessment and Plan Assessment and plan (1) Hematuria: Code(s): R31.9 - Hematuria, unspecified Status: Acute (2) Calculus, ureteral: Code(s): N20.1 - Calculus of ureter Status: Acute Assessment and Plan: Stent in place and draining. Pt. to take Oxybutynin TID PRN for stent pain. (3) Pyelonephritis: Code(s): N12 - Tubulo-interstitial nephritis, not specified as acute or chronic Status: Acute Assessment and Plan: Continue IV antibiotics, tailor to culture results. Plan to continue with Lithotripsy next week, keep pt. on antibiotics through the surgery next Wednesday. Urology Consult Note HPI Date Seen: 04/30/23 Time Seen: 13:26 Requesting Physician: Chas Harley MD Primary Care Provider: Natalie Vernon MD Consult Narrative Reason for consult: Right Flank Pain, Stent Placed Cystitis, Pylitis. Narrative: Natalie Saunders is a 52 year old female who presented to the ER for worsening flank pain in the right side, that radiates to the RLQ. She also c/o dysuria, frequency and urgency. She had a cystoscopy right stent placed and right retrograde pyelogram at [facility] one week ago on 04/24/[address] Walker and has a lithotripsy scheduled for next Wednesday the 07 of May at [facility]. She is afebrile, has a WBC of 14.7, creatinine of 0.60 and a UA that appears positive for infection. Urine and blood cultures are pending at this time. She is on Ceftriaxone currently. Her CT scan in the ER here shows a 5mm stone in the distal right ureter with right hydro and stent in place. Review of Systems Cardiovascular: Cardiovascular: Denies chest pain Respiratory: Respiratory: Reports no additional respiratory complaints Gastrointestinal: Gastrointestinal: Reports abdominal pain, Denies nausea and Denies vomiting Genitourinary: Genitourinary: Denies hematuria, Reports dysuria, Denies pelvic pain, Reports flank pain, Denies urinary incontinence and Reports urinary urgency PMFSH Past Medical History Medical History Anxiety Asthma Endometriosis Esophageal reflux Migraines PONV (postoperative nausea and vomiting) Small intestinal bacterial overgrowth (SIBO) 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 Surgical History Surgical History History of bowel resection for SBO related to endometriosis History of thoracic surgery s/p resection of mediastinal mass 01/08/23. 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 S/P breast lumpectomy benign pathology Status post abdominal hysterectomy and salpingo-oophorectomy unilateral oophorectomy Status post appendectomy Status post cholecystectomy Status post surgical removal of pilonidal cyst Status post tonsillectomy Family History Family History Father Hypertension Mother Hypertension Social History Social History Social History: Patient lives at home with her . She has 3 grown children that are college age. She is a lifelong nonsmoker. No alcohol use. No drug use. No history of drug use in the past. She is a full code. She nominates her to be the individual who would make medical decisions for her if she is unable. Smoking status: Never smoker Alcohol intake: never Substance use: never Lack of Transportation: No Lack of Food: Never True Current Housing: I Have Housing Concerned About Future Housing: No Difficulty Paying Gas/Electric Bills: No Difficulty Paying for Meds: No Currently Unemployed: No Education: Master's Degree or Higher Difficulty w/ Childcare or Family Care: No Living arrangements: with family Gender identity (if verbalized by the patient): Female Spiritual care concerns: No Meds Home Medications and Allergies Home Medications Medication Inst
[2023-04-30] MEDS: FLUTICASONE PROPIONATE 0.05% NA SPR 16 GM BTL (*BKC) 2 SPRAY NASAL (16:52)
[2023-04-30] MEDS: PANTOPRAZOLE 40 MG TABLET PO (21:16)
[2023-04-30] MEDS: TAMSULOSIN HCL 0.4 MG CAPSULE PO (21:16)
[2023-04-30] MEDS: AMITRIPTYLINE HCL 10 MG TABLET PO (21:16)
[2023-04-30] MEDS: TOPIRAMATE 25 MG TABLET 50 MG PO (21:16)
[2023-05-01 04:53] VITALS: BP 113/53; PULSE 66; RESP 20; TEMP 36.6; O2SAT 98
[2023-05-01 05:53] LABS: Alanine Aminotransferase 53 U/L (6-35); Albumin Level 3.6 g/dL (3.5-5.1); Alkaline Phosphatase 76 U/L (38-126); Anion Gap 5 mmol/L (8-16); Aspartate Amino Transferase 51 U/L (14-36); Bilirubin,Total 0.4 mg/dL (0.2-1.3); Blood Urea Nitrogen 11 mg/dL (7-17); Calcium 8.1 mg/dL (8.4-10.2); Carbon Dioxide 24 mmol/L (22-30); Chloride 108 mmol/L (98-107); Estimated CRCL calculation 102 ml/min; Estimated Glomerular Filt Rate > 60; Glucose 86 mg/dL (65-110); Potassium 3.1 mmol/L (3.4-5.0); Sodium 137 mmol/L (137-145)
[2023-05-01 05:55] LABS: Basophils Percent Auto 0.3 % (0.2-1.2); Eosinophils Absolute Auto 0.2 K/mm3 (0-0.3); Eosinophils Percent Auto 2.4 % (0-4.4); Hematocrit 35.5 % (37.0-47.0); Hemoglobin 11.3 g/dL (12.0-15.0); Immature Granulocyte Absolute 0.03 K/mm3 (0.00-0.031); Immature Granulocyte Percent A 0.3 % (0-0.5); Lymphocytes Absolute Auto 2.93 K/mm3 (0.9-3.2); Lymphocytes Percent Auto 33.5 % (18.3-44.2); Mean Corpuscular HGB Conc 31.8 g/dl (32-36); Mean Corpuscular Hemoglobin 30.2 pg (26-34); Mean Corpuscular Volume 94.9 fl (80-100); Mean Platelet Volume 10.4 fl (7.4-10.4); Monocytes Absolute Auto 0.6 K/mm3 (0.1-0.6); Neutrophils Absolute Auto 4.9 K/mm3 (1.3-6.7); Neutrophils Percent Auto 56.5 % (45.5-73.1); Platelet Count Result 226 k/mm3 (150-375); Red Blood Count 3.74 M/mm3 (4.2-5.4); Red Cell Distribution Width 12.7 % (11.5-14.5); White Blood Count 8.8 K/mm3 (4.5-10.0)
[2023-05-01 06:19] LABS: Hepatitis B Surface Antigen Negative (Negative)
[2023-05-01 06:25] LABS: HAV RESULT Negative (Negative); Hepatitis B Core IgM Result Negative (Negative)
[2023-05-01 06:36] LABS: Hepatitis C Virus Antibody Negative (Negative)
[2023-05-01] MEDS: HYDROcodone/acetaminophen (*CRX) 5-325 MG TABLET 1 TAB PO ×2 (09:54→18:34)
[2023-05-01] MEDS: oxyBUTYnin CHLORIDE 5 MG TABLET PO ×3 (09:54→18:34)
[2023-05-01] MEDS: POTASSIUM CHLORIDE 20 MEQ PACKET (FOR LIQUID) 40 MEQ PO (09:54)
[2023-05-01] MEDS: GABAPENTIN 100 MG CAPSULE PO ×3 (09:54→18:34)
[2023-05-01] MEDS: FLUTICASONE PROPIONATE 0.05% NA SPR 16 GM BTL (*BKC) 2 SPRAY NASAL (09:54)
[2023-05-01] MEDS: PANTOPRAZOLE 40 MG TABLET PO ×2 (09:54→20:46)
[2023-05-01 11:00] VITALS: O2SAT 96
--- NOTE | 2023-05-01 11:44 | PM.IMPN ---
Progress Note: A&P Assessment and Plan (1) Pyelonephritis: Code(s): N12 - Tubulo-interstitial nephritis, not specified as acute or chronic Status: Acute Assessment and Plan: Urinalysis is consistent with UTI. CT the abdomen pelvis shows cystitis with right-sided pyelitis. White count was elevated to 14.8K. She does not meet criteria for sepsis. There is old urine culture result from 2021 which showed pansensitive E coli. BCx NGTD UCx GNB She was started on Rocephin. WBC normal. Pain better. Continue Rocephin. Follow-up on culture results. Adjust antibiotics pending those results. (2) Right ureteral calculus: Code(s): N20.1 - Calculus of ureter Status: Acute Assessment and Plan: CT of the abdomen pelvis shows stent is in expected position. Urology consulted and appreciate their input. Patient was having hematuria most likely related to the recent stent placement and current infection. She is not having clots so we held off on placing a Palmer catheter. Hemoglobin stable. Ditropan changed to TID prn. Patient made aware. Plan for lithotripsy while still on abx as outpatient. (3) Hematuria: Code(s): R31.9 - Hematuria, unspecified Status: Acute Assessment and Plan: As above. Hematuria waning. Monitor for evidence of urine retention or worsening hematuria. (4) Asthma: Qualifiers: Asthma severity: unspecified severity Asthma persistence: intermittent Asthma complication type: unspecified Qualified Code(s): J45.20 - Mild intermittent asthma, uncomplicated Code(s): J45.909 - Unspecified asthma, uncomplicated Status: Acute Assessment and Plan: Stable. Patient on room air. No wheezing. Will continue to monitor. Albuterol be available as needed. (5) Esophageal reflux: Qualifiers: Esophagitis presence: without esophagitis Qualified Code(s): K21.9 - Gastro-esophageal reflux disease without esophagitis Code(s): K21.9 - Gastro-esophageal reflux disease without esophagitis Status: Acute Assessment and Plan: Stable. Continue PPI. (6) Elevated transaminase level: Code(s): R74.01 - Elevation of levels of liver transaminase levels Status: Acute Assessment and Plan: AST and ALT are mildly elevated. Bilirubin and alk-phos levels are normal. CT of the abdomen shows diffuse hepatic steatosis. She is status post cholecystectomy. Hepatitis panel negative. Suspect elevated liver enzymes related to her medications, fatty liver and possible recent Tylenol use. Levels about the same. Will continue to monitor. Plan DVT prophylaxis - SCDs Code status - full Subjective Date/time seen: 05/01/23 11:44 Interval history: 52-year-old female asthma, anxiety and? recent ureteral stent placement for obstructing nephrolithiasis here for right-sided back and abdominal pain with hematuria.?? Abdominal and flank pain is better today. Slight dysuria. Hematuria is improving as well. Exam Narrative: AF 98.0 113/53 66 20 96% ra Gen - NARD Chest -CTA bilaterally CV - RRR S1/S2 Abd - soft, right sided pain. +BS Back - mild right CVA tenderness Ext - no pedal edema. Psych - normal mood and affect. Skin - warm and dry. Objective Data Vital Signs Vital Signs: Vital Signs - 24 hr 04/30/23 14:21 04/30/23 19:43 04/30/23 21:05 Temperature 98.1 F 97.8 F Pulse Rate 67 71 Respiratory Rate 17 20 Blood Pressure 107/51 L 121/69 Pulse Oximetry 96 97 Oxygen Delivery Room Air 05/01/23 04:53 05/01/23 11:00 Temperature 98 F Pulse Rate 66 Respiratory Rate 20 Blood Pressure 113/53 L Pulse Oximetry 98 96 Oxygen Delivery Room Air Intake/Output Intake/Output: Intake & Output 04/28/23 04/29/23 04/30/23 05/01/23 23:59 23:59 23:59 23:59 Intake Total 3620 290 Output Total 1000 250 Balance 2620 40 Meds/Results Medications: Active Me
[2023-05-01 14:56] VITALS: BP 112/50; PULSE 66; RESP 16; TEMP 36.9; O2SAT 99
[2023-05-01 20:26] VITALS: BP 116/52; PULSE 62; RESP 18; TEMP 36.6; O2SAT 97
[2023-05-01] MEDS: AMITRIPTYLINE HCL 10 MG TABLET PO (20:46)
[2023-05-01] MEDS: TAMSULOSIN HCL 0.4 MG CAPSULE PO (20:46)
[2023-05-01] MEDS: TOPIRAMATE 25 MG TABLET 50 MG PO (20:46)
--- NOTE | 2023-05-01 22:01 | PC.NURSE ---
I saw a new microbiology result pop up on my status board approx. around 2009. Report said urine culture was finalized, result positive for Proteus Mirabilis. Pt already receiving IV ceftriaxone 1 gm Q24H. Called result to hospitalist, Alejandra Rizo @ 2029, but said she would review pts chart before putting orders in and to call back if no new orders pop up within an hour. Called back @ 215 because no new orders seen. Hospitalist said current abx should cover for now and will not make changes at this time.
[2023-05-02 04:50] VITALS: BP 109/58; PULSE 63; RESP 18; TEMP 36.6; O2SAT 97
[2023-05-02 08:00] VITALS: O2SAT 97
[2023-05-02] MEDS: GABAPENTIN 100 MG CAPSULE PO (08:39)
[2023-05-02] MEDS: FLUTICASONE PROPIONATE 0.05% NA SPR 16 GM BTL (*BKC) 2 SPRAY NASAL (08:39)
[2023-05-02] MEDS: PANTOPRAZOLE 40 MG TABLET PO (08:40)
[2023-05-02] MEDS: oxyBUTYnin CHLORIDE 5 MG TABLET PO (08:42)
--- NOTE | 2023-05-02 10:56 | PM.DS ---
DS: Admitting Diagnosis Discharge Date 05/02/23 Admitting Diagnosis Back and abdominal pain DS: Discharge Diagnosis Discharge Diagnosis (1) Pyelonephritis: Code(s): N12 - Tubulo-interstitial nephritis, not specified as acute or chronic Status: Acute (2) Right ureteral calculus: Code(s): N20.1 - Calculus of ureter Status: Acute (3) Hematuria: Code(s): R31.9 - Hematuria, unspecified Status: Acute (4) Asthma: Qualifiers: Asthma severity: unspecified severity Asthma persistence: intermittent Asthma complication type: unspecified Qualified Code(s): J45.20 - Mild intermittent asthma, uncomplicated Code(s): J45.909 - Unspecified asthma, uncomplicated Status: Acute (5) Esophageal reflux: Qualifiers: Esophagitis presence: without esophagitis Qualified Code(s): K21.9 - Gastro-esophageal reflux disease without esophagitis Code(s): K21.9 - Gastro-esophageal reflux disease without esophagitis Status: Acute (6) Elevated transaminase level: Code(s): R74.01 - Elevation of levels of liver transaminase levels Status: Acute DS: Summary Hospital Course Reason for hospitalization: 52-year-old female asthma, anxiety and? recent ureteral stent placement for obstructing nephrolithiasis here for right-sided back and abdominal pain with hematuria.??Please see H&P for details. Hospital Course: Patient presents with right-sided back and abdominal pain. Urinalysis is consistent with UTI.? CT the abdomen pelvis shows cystitis with right-sided pyelitis.?Stent is in expected position.?White count was elevated to 14.8K.? She did not meet criteria for sepsis. BCx NGTD. UCx grew alvarado-sensitive Proteus. She was started on Rocephin. WBC normalized. Pain improved. Urology consulted and appreciate their input. Patient was having hematuria most likely related to the recent stent placement and current infection.? She was not having clots so we held off on placing a Palmer catheter.? Hemoglobin remained stable.? Ditropan changed to TID prn. Hematuria resolved. Patient noted to have AST and ALT mildly elevated.? Bilirubin and alk-phos levels are normal.? CT of the abdomen shows diffuse hepatic steatosis.? She is status post cholecystectomy. Hepatitis panel negative. Suspect elevated liver enzymes related to recent infection, her medications, fatty liver and/or possible recent Tylenol use. Levels about the same.?Plan to defer to her PCP for further evaluation and treatment. She had clinical improvement and was able to be discharged home on 05/02/23. Status at Discharge Cognitive/behavioral status at discharge: stable Time Spent with Patient Time attestation: Total time spent providing and/or coordinating discharge services: 38 minutes Time spent: Greater than 30 minutes Exam Narrative: AF 97.8 109/58 63 18 97% ra Gen - NARD Chest -CTA bilaterally CV - RRR S1/S2 Abd - soft, mild RLQ pain but no guarding. +BS Back - mild right CVA tenderness Ext - no pedal edema. Psych - normal mood and affect. Skin - warm and dry. DS: Data Data Completed and Pending Labs on day of discharge: Preliminary micro results at discharge 04/30/23 00:24 Blood Culture - Preliminary Blood 04/30/23 00:24 Blood Culture - Preliminary Blood Discharge Plan Discharge Attending physician on discharge: Alberto Harley Consulting providers: Gerber Horn Discharging Clinician: Alberto Harley Anticipated Discharge Date/Time: 05/02/23 11:03 Patient Disposition: Home, Self-Care Activity: as tolerated Diet: regular and low fat Discharge Instructions: Please complete your antibiotic course even if you are starting to feel well. Contact your doctor or call 911 and come to the Emergency Room if you have fevers, worsening abdominal pain, blood in your urine or other worrisome symptoms. Follow-up with your primary care provider in 1
== END 2023-05-02 12:24 | disposition home or self-care (01) ==
LOC: ANHED 04-30 05:12 → ANH2MED 04-30 05:46
PROVIDERS: Physician Assistant; Admitting Provider Internal Medicine; Emergency Provider Emergency Medicine; PCP Family Medicine; Visit Provider Internal Medicine
DX: N12 Tubulo-interstitial nephritis, not specified as acute or chronic (principal); N13.2 Hydronephrosis with renal and ureteral calculous obstruction; Z96.0 Presence of urogenital implants; N30.91 Cystitis, unspecified with hematuria; R82.71 Bacteriuria; B96.4 Proteus (mirabilis) (morganii) as the cause of diseases classified elsewhere; J45.20 Mild intermittent asthma, uncomplicated; Z20.822 Contact with and (suspected) exposure to COVID-19; K21.9 Gastro-esophageal reflux disease without esophagitis; R74.01 Elevation of levels of liver transaminase levels; F41.9 Anxiety disorder, unspecified; R00.0 Tachycardia, unspecified; D72.829 Elevated white blood cell count, unspecified; N80.9 Endometriosis, unspecified; Z79.51 Long term (current) use of inhaled steroids; Z79.891 Long term (current) use of opiate analgesic; Z79.2 Long term (current) use of antibiotics; Z79.899 Other long term (current) drug therapy
CPT/HCPCS: 36415; 74177; 80053; 80074; 81001; 81025; 83605; 83690; 85025; 87040; 87077; 87086; 87186; 96361; 96365; 96375; 96376; 99285; A9270; G0378; J0696; J0780; J1170; J1200; J2405; J7030; Q9967

== ENCOUNTER 2023-05-04 14:35 | Outpatient (CLI) | payer OTHER, SELFPAY ==
[2023-05-04 15:17] LABS: INR 0.9; Prothrombin Time 12.9 Seconds (11.1-14.7)
[2023-05-04 15:18] LABS: Partial Thromboplastin Time 30.1 SECONDS (22.3-36.8)
== END 2023-05-04 14:36 | disposition home or self-care (01) ==
LOC: ANHSURGERY 14:39
PROVIDERS: PCP Family Medicine; Visit Provider Urology
DX: N20.0 Calculus of kidney (principal)
CPT/HCPCS: 36415; 85610; 85730; 87086

== ENCOUNTER 2023-05-07 01:03 | Day surgery (SDC) | payer OTHER, SELFPAY ==
[2023-04-29 15:00] VITALS: BMI 29.9
--- NOTE | 2023-04-29 15:07 | PC.NURSE ---
Report to the Outpatient Waiting Room, entrance under the green pavilion located off [facility], at time _0900_ on date _[id number]_. Planned Procedure Time: _1100_. Time changes happen often and if your time is changed the preop area will call you the afternoon before. - You and your visitor will be asked to self-screen and do not enter if you have any COVID symptoms. - A mask is optional within the hospital at this time. Patients may have clear liquids (water, carbonated beverages, clear teas, apple juice) until 3 hours prior to surgery with a maximum of 20 ounces. - No food from midnight until time of surgery Take the following medications with a SIP of water the morning of surgery: ___Gabapentin and pain med if needed. DO NOT STOP ANY OF YOUR OTHER PRESCRIPTION MEDICATIONS PRIOR TO SURGERY ?EXCEPT THE FOLLOWING Medications to discontinue per physician None Date to take last dose Please no make-up, nail danish, hairspray, perfume, deodorant, or body powder the day of surgery. No jewelry (including any body piercings) or valuables the day of surgery, leave them at home. Please take a shower or bath the night before, or the morning of, surgery with an antibacterial soap. Wear comfortable, loose fitting clothing. - Jewelry must be removed prior to entering the operating room. Rings and piercings that are not removed may be cut off. - The hospital will not accept responsibility for valuables. - Please leave all valuables, including medications, at home the day of surgery. If you are going home after surgery, a licensed local [place] truck driver must drive you home. - NO public transportation without another adult if you receive anesthesia. - We recommend that an adult stay with you for 24 hours following discharge. - We also recommend that you do not drive, make important decision, drink alcoholic beverages, or take any drugs that were not prescribed by your health care provider for at least 24 hours after your discharge time. Follow any additional instructions given to you from your surgeon. If you or anyone in your household have experienced Covid symptoms in the past week, please notify your surgeon or the nurse liaison at the phone number below for possible testing. Telephone instructions given to _Patient__and asked if any additional questions and then verbalized understanding. Patient advised to call surgeon office or pre surgery nurse liaison [phone] if any additional questions.
--- NOTE | 2023-04-29 15:52 | PM.HPGS ---
History of Present Illness History of Present Illness Consent: Risks, benefits, and alternatives have been discussed and questions answered. Patient agrees to proceed with procedure. Chief complaint: Right Ureteral Stone Narrative: Natalie Saunders is a 52 year old female Without prior history of urolithiasis until she presented to the emergency department at [facility] proximally 1 week ago with right flank pain. Imaging demonstrated a 5-6 mm right mid ureteral calculus. Ureteral stent was placed and after discussion of therapeutic options she now presents for right ESWL. She is aware the risks of this including, but not limited to, postoperative hematuria, perinephric hematoma, need for additional procedures. Review of Systems Review of Systems: All systems reviewed & are unremarkable except as noted in HPI and below PMFSH Past Medical History Medical History Anxiety Asthma Endometriosis PONV (postoperative nausea and vomiting) Surgical History Surgical History History of thoracic surgery s/p resection of mediastinal mass 01/08/23. 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 Family History Family History Father Hypertension Mother Hypertension Social History Social History Smoking status: Never smoker Alcohol intake: never Substance use: never Lack of Transportation: No Lack of Food: Never True Current Housing: I Have Housing Concerned About Future Housing: No Difficulty Paying Gas/Electric Bills: No Currently Unemployed: No Education: Master's Degree or Higher Difficulty w/ Childcare or Family Care: No Living arrangements: with family Gender identity (if verbalized by the patient): Female Spiritual care concerns: No Meds Home Medications and Allergies Home Medications Medication Instructions Recorded Confirmed Type cetirizine 10 mg tablet (Zyrtec) 10 mg PO DAILY PRN Allergy Symptoms 09/09/20 04/29/23 History amitriptyline 10 mg tablet 10 mg PO QHS #90 tabs 07/22/21 04/29/23 Rx eletriptan 40 mg tablet 40 mg PO ONCE PRN Migraine Headache 07/02/22 04/29/23 History omeprazole 20 mg capsule,delayed 20 mg PO BID 07/02/22 04/29/23 History release albuterol sulfate 90 mcg/actuation 2 puff inhalation Q4-6H PRN ASTHMA 10/23/22 04/29/23 Rx aerosol inhaler (Ventolin HFA) #8.5 grams fluticasone propionate 50 2 spray intranasal BID #16 mL 11/30/22 04/29/23 Rx mcg/actuation nasal spray,suspension (Flonase Allergy Relief) erythromycin 250 mg tablet 50 mg PO DAILY 02/23/23 04/29/23 History gabapentin 100 mg capsule 100 mg PO TID 02/23/23 04/29/23 History topiramate 50 mg tablet 50 mg PO HS 02/23/23 04/29/23 History montelukast 10 mg tablet See Rx Instructions .Route 04/14/23 04/29/23 Rx .COMPLEX #90 tabs zolpidem 5 mg tablet 5 mg PO QHS #1 tablet 04/26/23 04/29/23 Rx hydrocodone 5 mg-acetaminophen 325 1 - 2 tablet PO Q6H PRN Pain 04/29/23 04/29/23 History mg tablet oxybutynin chloride 5 mg 5 mg PO DAILY 04/29/23 04/29/23 History tablet,extended release 24 hr tamsulosin 0.4 mg capsule 0.4 mg PO HS 04/29/23 04/29/23 History Allergies Allergy/AdvReac Type Severity Reaction Status Date / Time adhesive tape Allergy Intermediate Blister Verified 04/29/23 14:53 dexamethasone Allergy Intermediate Blister Verified 04/29/23 14:52 codeine AdvReac Severe Nausea and Verified 04/29/23 14:51 Vomiting Exam Const: General: no acute distress Resp: Effort & Inspection: normal respiratory effort GI: Inspection: non-distended GI Palp: No abdominal tenderness and No Guarding due to palpation present (GI) Auscultation: normal bowel sounds Assessment and Plan Assessment and plan (1) Right ureteral calculus:
[2023-05-07] VITALS (9 sets, daily range): BP systolic 119–153; BP diastolic 60–86; PULSE 61–74; RESP 12–22; TEMP 36.6–36.8; O2SAT 93–100
--- NOTE | ~2023-05-07 | XR_ITS ---
EXAMINATION: XR abdomen/kub 1V DATE: 05/07/2023 09:22 INDICATION: Right ureteral stone for planned shockwave lithotripsy. TECHNIQUE: A supine view of the abdomen on 2 radiographs was obtained. COMPARISON: CT dated 04/30/2023 FINDINGS: Interval placement of a right internal ureteral stent with loops formed in the expected location of t he right renal pelvis and the bladder. There is unchanged 5 mm distal right ureteral stone is seen al ongside the catheter and projecting over the right sacral ala slightly medial to the caudal aspect of the right sacroiliac joint. No other evident urolithiasis. Couple small phleboliths in the left reese pelvis. Also few scattered ovoid densities projecting over the left and right lower quadrants likely representing ingested pills. Ileocolic anastomotic suture line in the right lower quadrant. Cholecyst ectomy clips in right upper quadrant. No dilated loops of bowel to suggest obstruction. Mild lumbar d extrocurvature. IMPRESSION: 1. Unchanged 5 mm distal right ureteral stone alongside a right internal ureteral stent which is in e xpected position. Reviewed, dictated and finalized at location A. IMPRESSION: 1. Unchanged 5 mm distal right ureteral stone alongside a right internal ureter al stent which is in expected position.
--- NOTE | 2023-05-07 07:19 | WPDHPUPDATE1 ---
History and Physical Update Update Date/Time: 05/07/23 07:19 History and Physical has been reviewed, including an updated exam of the patient. There are NO changes in the patient's condition. Risks, benefits, and alternatives have been discussed and questions answered. Patient agrees to proceed with procedure.
--- NOTE | 2023-05-07 09:15 | WPDANESEPPF ---
Anes - Initial Pre Proc Eval Procedure: Operation Date: 05/07/23 11:00 Proposed Procedures p Right Extracorporeal Shock Wave Lithotripsy - Jarrett Walker MD Date/Time: 05/07/23 09:15 Surgeon: Jarrett Walker MD Pre Op Diagnosis: Right Ureteral Stone Patient Data Age: 52 Gender: F Height: 1.68 m Weight: 84 kg Allergies Allergy/AdvReac Type Severity Reaction Status Date / Time adhesive tape Allergy Intermediate Blister Verified 04/29/23 22:52 dexamethasone Allergy Intermediate Blister Verified 04/29/23 22:52 codeine AdvReac Severe Nausea and Verified 04/29/23 22:52 Vomiting Home Medications Medication Instructions Recorded Confirmed Type cetirizine 10 mg tablet (Zyrtec) 10 mg PO DAILY PRN Allergy Symptoms 09/09/20 04/30/23 History amitriptyline 10 mg tablet 10 mg PO QHS #90 tabs 07/22/21 04/30/23 Rx eletriptan 40 mg tablet 40 mg PO ONCE PRN Migraine Headache 07/02/22 04/30/23 History omeprazole 20 mg capsule,delayed 20 mg PO BID 07/02/22 04/30/23 History release albuterol sulfate 90 mcg/actuation 2 puff inhalation Q4-6H PRN ASTHMA 10/23/22 04/30/23 Rx aerosol inhaler (Ventolin HFA) #8.5 grams fluticasone propionate 50 2 spray intranasal BID #16 mL 11/30/22 04/30/23 Rx mcg/actuation nasal spray,suspension (Flonase Allergy Relief) erythromycin 250 mg tablet 50 mg PO DAILY 02/23/23 04/30/23 History gabapentin 100 mg capsule 100 mg PO TID 02/23/23 04/30/23 History topiramate 50 mg tablet 50 mg PO HS 02/23/23 04/30/23 History montelukast 10 mg tablet See Rx Instructions .Route 04/14/23 04/30/23 Rx .COMPLEX #90 tabs hydrocodone 5 mg-acetaminophen 325 1 - 2 tablet PO Q6H PRN Pain 04/29/23 04/30/23 History mg tablet tamsulosin 0.4 mg capsule 0.4 mg PO HS 04/29/23 04/30/23 History ciprofloxacin HCl 500 mg tablet 500 mg PO Q12H 7 days #14 tabs 05/02/23 Rx oxybutynin chloride 5 mg tablet 5 mg PO TID PRN right flank pain 05/02/23 Rx #15 tabs Patient hx anesthesia problems: none Family hx anesthesia problems: none Results Review: All pre-operative results and documents have been reviewed as part of the pre-operative evaluation. [facility] Past Medical History Medical History Anxiety Asthma Endometriosis Esophageal reflux Migraines PONV (postoperative nausea and vomiting) Small intestinal bacterial overgrowth (SIBO) 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 Surgical History Surgical History History of bowel resection for SBO related to endometriosis History of thoracic surgery s/p resection of mediastinal mass 01/08/23. 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 S/P breast lumpectomy benign pathology Status post abdominal hysterectomy and salpingo-oophorectomy unilateral oophorectomy Status post appendectomy Status post cholecystectomy Status post surgical removal of pilonidal cyst Status post tonsillectomy Family History Family History Father Hypertension Mother Hypertension Social History Social History Social History: Patient lives at home with her . She has 3 grown children that are college age. She is a lifelong nonsmoker. No alcohol use. No drug use. No history of drug use in the past. She is a full code. She nominates her to be the individual who would make medical decisions for her if she is unable. Smoking status: Never smoker Alcohol intake: never Substance use: never Lack of Transportation: No Lack of Food: Never True Current Housing: I Have Housing Concerned About Future Housing: No Difficulty Paying Gas/Electric Bills: No Difficulty Paying for Meds: No Currently Unemployed: No Education: Master's Degree or Higher Difficulty w/ Childcare or Family Care: No Living arrangements: with family Gender identity (if v
[2023-05-07] MEDS: LACTATED RINGERS 1,000 ML 30 ML IV CONT ×2 (09:30→12:40)
[2023-05-07] MEDS: ceFAZolin 2 GM/D5W 50 ML 2 GM/50 ML BAG IVPB (10:30)
--- NOTE | 2023-05-07 10:43 | W.PM.PROC2 ---
Procedure Note - Detailed Date of Procedure 05/07/23 Pre-op Diagnosis Right Ureteral Stone Post-op Diagnosis Same Procedure Performed Right ESWL Surgeon Jarrett Walker MD Anesthesia General Description of Procedure The patient was brought to the operative suite where she was placed in the supine position on the Dornier lithotripsy table. The focal point of the lithotripter was placed at a 5-6mm right mid-ureteral calculus. A total of 3000 shocks were delivered at a power setting of 1-5. There appeared to be good fragmentation of the stone. The patient tolerated the procedure well and was taken to the recovery room in good condition. Drains No Packing No Pathology None sent Complications No immediate complications Condition Stable
[2023-05-07] MEDS: fentaNYL CITRATE INJ (*CRX) 100 MCG/2 ML VIAL 25 MCG IV PUSH ×2 (11:48→11:50)
[2023-05-07] MEDS: ONDANSETRON INJ 4 MG/2 ML VIAL IV PUSH (12:40)
== END 2023-05-07 13:41 | disposition home or self-care (01) ==
PROVIDERS: PCP Family Medicine; Visit Provider Urology
PROC: (CPT 50590; principal; 2023-05-07 11:00)
DX: N20.1 Calculus of ureter (principal); J45.909 Unspecified asthma, uncomplicated; F41.9 Anxiety disorder, unspecified; Z79.51 Long term (current) use of inhaled steroids
CPT/HCPCS: 50590; 74018; J0690; J1100; J2250; J2405; J2704; J3010; J7120

== ENCOUNTER 2023-05-13 10:00 | Outpatient (CLI) | payer OTHER, SELFPAY ==
--- NOTE | ~2023-05-13 | XR_ITS ---
EXAMINATION: XR abdomen/kub 1V INDICATION: Ureteral calculus follow-up TECHNIQUE: Supine views of the abdomen were obtained on 2 radiographs. COMPARISON: 05/07/2023 FINDINGS: A right internal ureteral stent is in expected position. The previously described 5 mm ston e projecting adjacent to the distal stent over the right sacrum appears unchanged in location. There are phleboliths of the pelvis. No additional urolithiasis is identified. There are cholecystectomy cl ips. A surgical staple line is noted in right colon. IMPRESSION: 1. Right internal ureteral stent in expected position with stable 5 mm stone adjacent to the distal s tent. Reviewed, dictated and finalized at location L. IMPRESSION: 1. Right internal ureteral stent in expected position with stable 5 mm stone ad jacent to the distal stent.
== END 2023-05-13 10:01 | disposition home or self-care (01) ==
PROVIDERS: PCP Family Medicine; Visit Provider Urology
DX: N20.1 Calculus of ureter (principal)
CPT/HCPCS: 74018

== ENCOUNTER 2023-05-17 07:14 | Outpatient (CLI) | payer OTHER, SELFPAY ==
--- NOTE | ~2023-05-17 | XR_ITS ---
EXAMINATION: XR abdomen/kub 1V DATE: 05/17/2023 07:34 INDICATION: Right ureteral stone. TECHNIQUE: A supine view of the abdomen on 2 radiographs was obtained. COMPARISON: Abdomen radiographs 05/13/2023, CT abdomen and pelvis 04/30/2023 FINDINGS: There are no dilated loops of bowel. There is a right internal ureteral stent in expected p osition. There is a 7 x 3 mm stone in distal right ureter overlying the sacrum. Surgical clips in the right upper quadrant are likely from cholecystectomy. There are phleboliths in the pelvis. IMPRESSION: 1. 7 x 3 mm stone in distal right ureter overlying the sacrum with right internal ureteral stent in e xpected position. Reviewed, dictated and finalized at location E. IMPRESSION: 1. 7 x 3 mm stone in distal right ureter overlying the sacrum with right internal medicine nurse practitioner al ureteral stent in expected position.
== END 2023-05-17 07:15 | disposition home or self-care (01) ==
PROVIDERS: PCP Family Medicine; Visit Provider Urology
DX: N20.1 Calculus of ureter (principal)
CPT/HCPCS: 74018

== ENCOUNTER 2023-05-19 01:41 | Day surgery (SDC) | payer OTHER, SELFPAY ==
[2023-05-18 12:32] VITALS: BMI 29.9
--- NOTE | 2023-05-18 12:35 | PC.NURSE ---
Report to the Outpatient Waiting Room, entrance under the green pavilion located off [facility], at time 0700 on date 05/19/23. Planned Procedure Time: 0900. Time changes happen often and if your time is changed the preop area will call you the afternoon before. - You and your visitor will be asked to self-screen and do not enter if you have any COVID symptoms. - A mask is optional within the hospital at this time. Patients may have clear liquids (water, carbonated beverages, clear teas, apple juice) until 3 hours prior to surgery with a maximum of 20 ounces. - No food from midnight until time of surgery Take the following medications with a SIP of water the morning of surgery: GABAPENTIN, PAIN PILL/INHALER IF NEEDED DO NOT STOP ANY OF YOUR OTHER PRESCRIPTION MEDICATIONS PRIOR TO SURGERY ?EXCEPT THE FOLLOWING Medications to discontinue per physician: N/A Date to take last dose: N/A Please no make-up, nail wolof, hairspray, perfume, deodorant, or body powder the day of surgery. No jewelry (including any body piercings) or valuables the day of surgery, leave them at home. Please take a shower or bath the night before, or the morning of, surgery with an antibacterial soap. Wear comfortable, loose fitting clothing. - Jewelry must be removed prior to entering the operating room. Rings and piercings that are not removed may be cut off. - The hospital will not accept responsibility for valuables. - Please leave all valuables, including medications, at home the day of surgery. If you are going home after surgery, a licensed haul truck driver must drive you home. - NO public transportation without another adult if you receive anesthesia. - We recommend that an adult stay with you for 24 hours following discharge. - We also recommend that you do not drive, make important decision, drink alcoholic beverages, or take any drugs that were not prescribed by your health care provider for at least 24 hours after your discharge time. Follow any additional instructions given to you from your surgeon. If you or anyone in your household have experienced Covid symptoms in the past week, please notify your surgeon or the nurse liaison at the phone number below for possible testing. Telephone instructions given to PT Jeremias FAN and asked if any additional questions and then verbalized understanding. Patient advised to call surgeon office or pre surgery nurse liaison [phone] if any additional questions.
[2023-05-19] VITALS (12 sets, daily range): BP systolic 120–142; BP diastolic 59–75; PULSE 62–89; RESP 10–18; TEMP 36.2–37.2; O2SAT 95–100; BMI 29.7
--- NOTE | ~2023-05-19 | XR_ITS ---
EXAMINATION: XR retrograde pyelo w/stent RT DATE: 05/19/2023 09:00 INDICATION: Right ureteral stone. TECHNIQUE: 54 intraoperative fluoroscopic views of the abdomen and pelvis were obtained. I was not pr esent. Fluoroscopy exposure time was 44 seconds. COMPARISON: Abdomen radiographs 05/17/2023 FINDINGS: The right-sided retrograde pyelogram demonstrates moderate right hydronephrosis. The final images demonstrate a right internal ureteral stent in expected position. IMPRESSION: 1. Moderate right hydronephrosis. Right internal ureteral stent in expected position. Reviewed, dictated and finalized at location E. IMPRESSION: 1. Moderate right hydronephrosis. Right internal ureteral stent in expected pos ition.
--- NOTE | 2023-05-19 06:44 | WPDHPUPDATE1 ---
History and Physical Update Update Date/Time: 05/19/23 06:44 History and Physical has been reviewed, including an updated exam of the patient. There are NO changes in the patient's condition. Risks, benefits, and alternatives have been discussed and questions answered. Patient agrees to proceed with procedure.
[2023-05-19] MEDS: LACTATED RINGERS 1,000 ML 30 ML IV CONT ×2 (07:53→09:42)
--- NOTE | 2023-05-19 08:25 | WPDANESEPP ---
Anes - Eval Pre Procedure Procedure: Operation Date: 05/19/23 09:00 Proposed Procedures p Cystoscopy, Right Ureteroscopy, Right Retrograde Pyelogram, Possible Right Stone Extraction, Possible Right Stent Placement, Possible Holmium Laser - Jarrett Walker MD Date/Time: 05/19/23 08:25 Pre Op Diagnosis: r kidney stone Patient Data Age: 52 Gender: F Height: 1.68 m Weight: 83.4 kg Last Vital Signs Temp 36.2 C L 05/19/23 07:49 Pulse 89 05/19/23 07:49 Resp 18 05/19/23 07:49 BP 129/68 05/19/23 07:49 Pulse Ox 95 05/19/23 07:49 Allergies Allergy/AdvReac Type Severity Reaction Status Date / Time adhesive tape Allergy Intermediate Blister Verified 05/19/23 07:42 dexamethasone Allergy Intermediate Blister Verified 05/19/23 07:42 codeine AdvReac Severe Nausea and Verified 05/19/23 07:42 Vomiting Home Medications Medication Instructions Recorded Confirmed Type cetirizine 10 mg tablet (Zyrtec) 10 mg PO DAILY PRN Allergy Symptoms 09/09/20 05/19/23 History amitriptyline 10 mg tablet 10 mg PO QHS #90 tabs 07/22/21 05/19/23 Rx eletriptan 40 mg tablet 40 mg PO ONCE PRN Migraine Headache 07/02/22 05/19/23 History omeprazole 20 mg capsule,delayed 20 mg PO BID 07/02/22 05/19/23 History release albuterol sulfate 90 mcg/actuation 2 puff inhalation Q4-6H PRN ASTHMA 10/23/22 05/19/23 Rx aerosol inhaler (Ventolin HFA) #8.5 grams fluticasone propionate 50 2 spray intranasal BID #16 mL 11/30/22 05/19/23 Rx mcg/actuation nasal spray,suspension (Flonase Allergy Relief) erythromycin 250 mg tablet 50 mg PO HS 02/23/23 05/19/23 History gabapentin 100 mg capsule 100 mg PO TID 02/23/23 05/19/23 History montelukast 10 mg tablet See Rx Instructions .Route 04/14/23 05/19/23 Rx .COMPLEX #90 tabs tamsulosin 0.4 mg capsule 0.4 mg PO HS 04/29/23 05/19/23 History hydrocodone 5 mg-acetaminophen 325 1 - 2 tablet PO Q6H PRN pain #20 05/07/23 05/19/23 Rx mg tablet tabs oxybutynin chloride 5 mg tablet 5 mg PO TID #60 tabs 05/07/23 05/19/23 Rx metoprolol succinate 25 mg 25 mg PO DAILY 05/19/23 05/19/23 History tablet,extended release 24 hr Patient hx anesthesia problems: none Family hx anesthesia problems: none Results Review: All pre-operative results and documents have been reviewed as part of the pre-operative evaluation. [facility] Past Medical History Medical History Anxiety Asthma Endometriosis Esophageal reflux Migraines PONV (postoperative nausea and vomiting) Small intestinal bacterial overgrowth (SIBO) 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 Surgical History Surgical History History of bowel resection for SBO related to endometriosis History of thoracic surgery s/p resection of mediastinal mass 01/08/23. 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 S/P breast lumpectomy benign pathology Status post abdominal hysterectomy and salpingo-oophorectomy unilateral oophorectomy Status post appendectomy Status post cholecystectomy Status post surgical removal of pilonidal cyst Status post tonsillectomy Family History Family History Father Hypertension Mother Hypertension Social History Social History Social History: Patient lives at home with her . She has 3 grown children that are college age. She is a lifelong nonsmoker. No alcohol use. No drug use. No history of drug use in the past. She is a full code. She nominates her to be the individual who would make medical decisions for her if she is unable. Smoking status: Never smoker Alcohol intake: never Substance use: never Substance use type: does not use Lack of Transportation: No Lack of Food: Never True Current Housing: I Have Housing Concerned About Future Housing: No Difficulty Paying Gas/Electric Bill
[2023-05-19] MEDS: ceFAZolin 2 GM/D5W 50 ML 2 GM/50 ML BAG IVPB (08:33)
[2023-05-19] MEDS: LIDOCAINE HCL 2% GEL UROJET 10 ML PKG MUCOUS MEM (08:46)
--- NOTE | 2023-05-19 09:16 | W.PM.PROC2 ---
Procedure Note - Detailed Date of Procedure 05/19/23 Pre-op Diagnosis Right ureteral stone Post-op Diagnosis Same Procedure Performed Cystoscopy, right ureteral stent removal, right ureteroscopy with stone extraction, right ureteral stent replacement after retrograde pyelogram Surgeon Jarrett Walker MD Anesthesia General Description of Procedure Patient brought the operative suite she was prepped draped in routine sterile fashion while in dorsal lithotomy position after the uneventful induction of a general LMA anesthetic. Twenty-one F rigid cystoscope was placed in the bladder in the tip of the indwelling stent is grasped brought to the external urethral meatus. A 0.035 in glidewire was advanced through the stent into the renal pelvis under fluoroscopy. Distal ureter was dilated with an 8 F 10 F dilator. Ureteroscopy was undertaken with a short tapered semi-rigid ureteral scope. One residual stone fragment was found in bed it in the wall of left mid ureter. Ureteroscopy both proximal and distal this showed no additional fragments. This fragment was removed with a 1.9 F disposable stone basket. Opted to place a 4.8 F variable length stent in light of her ureteral edema. This was done after retrograde pyelogram was obtained to ensure appropriate positioning of the stent.
[2023-05-19] MEDS: fentaNYL CITRATE INJ (*CRX) 100 MCG/2 ML VIAL 25 MCG IV PUSH ×2 (09:28→09:31)
[2023-05-19] MEDS: ONDANSETRON INJ 4 MG/2 ML VIAL IV PUSH (09:35)
[2023-05-19] MEDS: diphenhydrAMINE HCl INJ 50 MG/ML VIAL 12.5 MG IV PUSH (09:53)
== END 2023-05-19 11:38 | disposition home or self-care (01) ==
PROVIDERS: PCP Family Medicine; Visit Provider Urology
PROC: (CPT 52352; principal; 2023-05-19 09:00)
DX: N20.1 Calculus of ureter (principal); J45.909 Unspecified asthma, uncomplicated; K21.9 Gastro-esophageal reflux disease without esophagitis; Z79.51 Long term (current) use of inhaled steroids; Z79.891 Long term (current) use of opiate analgesic
CPT/HCPCS: 52332; 52352; 74420; 82365; 88300; A9270; C1769; C2617; J0690; J1200; J1885; J2250; J2405; J2704; J3010; J7120; Q9966

== ENCOUNTER 2023-05-28 14:41 | Outpatient (CLI) | payer OTHER, SELFPAY ==
[2023-05-28 18:52] LABS: Alanine Aminotransferase 51 U/L (6-35); Albumin Level 4.3 g/dL (3.5-5.1); Alkaline Phosphatase 100 U/L (38-126); Aspartate Amino Transferase 45 U/L (14-36); Bilirubin,Total 0.4 mg/dL (0.2-1.3)
[2023-06-04 17:11] LABS: Acetylchol Receptor Binding Ab <0.30 nmol/L
== END 2023-05-28 14:42 | disposition home or self-care (01) ==
LOC: ANHGOSHLAB 14:43
PROVIDERS: PCP Family Medicine; Visit Provider Nurse Practitioner Family
DX: K76.0 Fatty (change of) liver, not elsewhere classified (principal); D49.89 Neoplasm of unspecified behavior of other specified sites
CPT/HCPCS: 36415; 80076; 84238

== ENCOUNTER 2023-06-14 08:57 | Outpatient (CLI) | payer OTHER, SELFPAY ==
--- NOTE | 2023-06-28 14:28 | WPDSLEEPSTUD ---
Sleep Study Date of Study: 06/14/23 Ordering Provider: PAVAN Brooks Interpreting Physician: Manasa Navarrete DO Sleep Study Type: Polysomnogram Height: 1.68 m Weight: 81.647 kg Body Mass Index: 29.0 Neck Circumference (inches): 14 [place]: 16 Reason for Sleep Study The patient had a Watch[employer] home sleep test on 03/31/2023 that showed an overall AHI of 1.9 with desaturation down to 80%. [place] Sleepiness Scale score of 16/24. Sleep History The patient is a 52-year-old female that had a sleep study ordered by the pulmonary group for evaluation of sleep apnea.? The patient occasionally awakens from sleep short of breath.? She occasionally awakens at night with heartburn, belching or cough.? She occasionally snores but it is rarely loud enough others complain.? She occasionally has trouble sleeping which she has a cold.? She occasionally wakes gasping for air throughout the night.? She occasionally has breathing problems at night observed by herself or others.? She denies sweating excessively at night.? She occasionally has heart palpitations or irregular heart beats during the night.? She occasionally falls asleep during the day but never while driving.? She denies sleep paralysis and cataplexy.? She occasionally has trouble at school or work due to sleepiness.? She frequently experiences vivid dream like scenes upon awakening or falling asleep.? She denies feeling afraid of going to sleep.? She rarely has nightmares.? She frequently remembers her dreams.? She occasionally has thoughts racing through her mind.? She rarely feels sad or depressed.? She occasionally has anxiety.? She occasionally has muscular tension.? She rarely notices parts of her body jerks.? She denies kicking during the night.? She denies having crawling aching feelings in her legs but occasionally has leg pain during the night.? She denies grinding her teeth during sleep and denies awakening with morning jaw pain.? She is frequently bothered by pain during the day but rarely awakened by pain during the night.? She constantly wakes up feeling stiff in the morning.? She denies waking up with sore or achy muscles.? She rarely wakes up with pain in the neck, spine or other joints.? She goes to bed between 10-10:30 p.m. on weekdays and 11:00 p.m. on the weekends.? It takes her 10 minutes to fall asleep.? She wakes up 1-2 times throughout the night to urinate but is able to fall back asleep within 5-15 minutes.? She wakes up at 6:00 a.m. on weekdays and at 10:00 a.m. on the weekends.? She typically gets a minimum of 8 hours of sleep per night.? She spends less than 10 minutes in bed after waking up in the morning.? She currently lives with her and adult son.? She will consume caffeinated tea within 2 hours of bedtime.? She denies engaging in physical exercise before bedtime.? She will watch television before falling asleep.? She will occasionally take naps in the afternoon or the evening but they are not refreshing.? She consumes 2 caffeinated beverages per day.? She denies tobacco, alcohol and recreational drug use. PMFSH Past Medical History Medical History Anxiety Asthma Endometriosis Esophageal reflux Migraines PONV (postoperative nausea and vomiting) Small intestinal bacterial overgrowth (SIBO) 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 Surgical History Surgical History History of bowel resection for SBO related to endometriosis History of thoracic surgery s/p resection of mediastinal mass 01/08/23. 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 S/P breast lumpectomy benign pathology Status post abdominal hysterectomy and salpingo-oophorectomy unilateral oophorectomy Status post appendectomy Status post cholecystectomy Status post surgical removal of pilonidal cyst Status post tonsillectomy Family History Family History (Reviewed 06/28/23 @ 14:32 by Manasa Boyd
[2023-06-28 14:32] VITALS: BMI 29.0
== END 2023-06-15 06:30 | disposition home or self-care (01) ==
LOC: ANHCSM 08:58
PROVIDERS: PCP Family Medicine; Visit Provider Physician Assistant
DX: G47.10 Hypersomnia, unspecified (principal); G47.61 Periodic limb movement disorder
CPT/HCPCS: 95810

== ENCOUNTER 2023-06-15 14:34 | Outpatient (CLI) | payer OTHER, SELFPAY ==
--- NOTE | ~2023-06-15 | CT_ITS ---
CT of the Abdomen and Pelvis: Indication: Microhematuria Technique: 2.5 mm axial scans were obtained through the abdomen and pelvis prior to and following in travenous administration of 130 cc of Omnipaque 350. Dose reduction technique was used on this scan b y utilizing automated exposure control and iterative reconstruction technique. The dose-length produc t (DLP) was 1589.44 mGy-cm. COMPARISON: 04/30/2023 Findings: Scans through the lung bases are unremarkable. There is diffuse fatty infiltration of the liver. Cholecystectomy clips are present. The spleen, panc reas, adrenals and kidneys are within normal limits. Right ureteral stent has been removed since the prior exam. No ureteral stone. No evidence of aortic aneurysm. No lymphadenopathy. No bowel obstruction or bowel wall thickening. There is no evidence to suggest acute appendicitis. Images through the pelvis were performed. Urinary bladder unremarkable. No pelvic mass seen. No ascit es. Impression: No etiology for hematuria identified. No significant abnormality of the system identified. Diffuse fatty infiltration of liver. Reviewed, dictated and finalized at location . 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 No significant abnormality of the syst em identified. Diffuse fatty infiltration of liver.
--- NOTE | ~2023-06-15 | XR_ITS ---
Supine and upright views of the abdomen Clinical history: Microhematuria COMPARISON: 05/17/2023 Findings: Bowel gas pattern is nonspecific. Suture lines noted at the right lower quadrant. Cholecyst ectomy clips present. No evidence for obstruction or free air. No abnormal mass lesion or calcificati on is seen. Osseous structures are intact. Impression: No significant abnormality is seen. Reviewed, dictated and finalized at [facility]. 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
== END 2023-06-15 14:35 | disposition home or self-care (01) ==
PROVIDERS: PCP Family Medicine; Visit Provider Nurse Practitioner Adult Health
DX: R31.29 Other microscopic hematuria (principal); K76.0 Fatty (change of) liver, not elsewhere classified
CPT/HCPCS: 74018; 74178; Q9967

== ENCOUNTER 2023-07-01 15:25 | Outpatient (CLI) | payer OTHER, SELFPAY | END 2023-07-01 15:26 | disposition home or self-care (01) | LOC: ANHLAB 15:26 | PROVIDERS: PCP Family Medicine; Visit Provider Physician Assistant | DX: D64.9 Anemia, unspecified (principal) | CPT/HCPCS: 36415; 82728 ==

== ENCOUNTER 2023-07-20 08:45 | Outpatient (CLI) | payer OTHER, SELFPAY ==
--- NOTE | ~2023-07-20 | CT_ITS ---
EXAMINATION: CT diagnostic chest wo con DATE: 07/20/2023 09:03 INDICATION: Thymoma TECHNIQUE: Computed tomography (CT) of the chest was performed without intravenous contrast. The dose -length product (DLP) was 213.68 mGy-cm. Automated exposure control and iterative reconstruction tech nique were employed. COMPARISON: 11/06/2022 FINDINGS: There has been interval resection of the previously described anterior mediastinal mass, de monstrated to be a thymoma on pathology. No new or recurrent mediastinal mass is identified. There is a stable 3 mm nodule of the left lung apex. The lungs are free of acute opacities. No pleural effusi on or pneumothorax. The liver is diffusely low in attenuation when compared with the spleen, consiste nt with hepatic steatosis. Changes of cholecystectomy are noted. There is mild thoracic spondylosis. IMPRESSION: 1. Interval thymoma resection without new or recurrent mass identified. 2. Diffuse hepatic steatosis. Reviewed, dictated and finalized at location L. 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
== END 2023-07-20 08:46 | disposition home or self-care (01) ==
LOC: ANHIMG 08:47
PROVIDERS: PCP Family Medicine; Visit Provider Physician Assistant
DX: D49.89 Neoplasm of unspecified behavior of other specified sites (principal); K76.0 Fatty (change of) liver, not elsewhere classified
CPT/HCPCS: 71250

== ENCOUNTER 2023-11-10 14:37 | Outpatient (CLI) | payer OTHER, SELFPAY ==
--- NOTE | 2023-11-17 12:00 | WPDHOLTEREM ---
Holter/Event Monitor Holter/Event Monitor Date of procedure: 11/10/23 Holter/Event Procedure: 48 Hr Holter Monitor Indications: Palpitations Conclusion: 1. 48 hour holter monitor on 11/10/23. 2. Underlying rhythm is sinus rhythm. HR range 53-114 bpm; average HR 79 bpm. 3. There are 5 premature supraventricular complexes and 1 supraventricular couplet. No supraventricular tachycardia. 4. There are 3 premature ventricular complexes. No ventricular tachycardia. 5. No sinoatrial or atrioventricular blocks. No significant pauses greater than 2 seconds. 6. Patient reports symptoms of chest kicks which demonstrate sinus rhythm, HR range 71-83 bpm.
== END 2023-11-10 14:38 | disposition home or self-care (01) ==
LOC: ANHCARD 14:37
PROVIDERS: PCP Family Medicine; Visit Provider Family Medicine
DX: R00.2 Palpitations (principal)
CPT/HCPCS: 93225; 93226

== ENCOUNTER 2024-01-07 09:51 | Outpatient (CLI) | payer OTHER, SELFPAY ==
--- NOTE | ~2024-01-07 | US_ITS ---
Limited Abdominal Sonogram: Real-time sonographic imaging of the right upper quadrant was performed. Clinical History: Neuro serum enzyme levels Findings: The liver appears echogenic with no evidence of mass lesion or bile duct dilatation. Main portal vein demonstrates normal direction of flow. The gallbladder is absent, compatible prior cholec ystectomy. The common bile duct measures 5 mm. The visualized pancreas, aorta, and IVC are unremarka ble. Impression: Diffuse fatty infiltration of the liver. Status post cholecystectomy. Reviewed, dictated and finalized at location . Impression: Diffuse fatty infiltration of the liver. Status post cholecystectomy.
== END 2024-01-07 09:52 ==
PROVIDERS: PCP Family Medicine; Visit Provider Family Medicine
DX: R74.8 Abnormal levels of other serum enzymes (principal); Z90.49 Acquired absence of other specified parts of digestive tract; K76.0 Fatty (change of) liver, not elsewhere classified
CPT/HCPCS: 76705

== ENCOUNTER 2024-01-21 10:46 | Outpatient (CLI) | payer OTHER, SELFPAY ==
--- NOTE | ~2024-01-21 | XR_ITS ---
XR abdomen/kub 1V Ordering provider: Jarrett Walker MD History: . HISTORY OF KIDNEY STONES, 6 MONTH F/U ASYMPTOMATIC . Comparison: June 15, 2023 FINDINGS: BOWEL: Nonobstructive bowel gas pattern. ORGANOMEGALY: None. SIGNIFICANT PATHOLOGIC CALCIFICATIONS: None. OTHER: No free air is seen under the diaphragm. IMPRESSION: NO ACUTE ABDOMINAL FINDINGS. Reviewed, dictated and finalized at location A.
== END 2024-01-21 10:47 | disposition home or self-care (01) ==
PROVIDERS: PCP Family Medicine; Visit Provider Urology
DX: Z87.442 Personal history of urinary calculi (principal)
CPT/HCPCS: 74018

== ENCOUNTER 2024-02-04 11:50 | Outpatient (CLI) | payer OTHER, SELFPAY | END 2024-02-04 11:51 | disposition home or self-care (01) | LOC: ANHAUDASC 12:00 | PROVIDERS: PCP Family Medicine; Visit Provider Family Medicine | DX: H91.90 Unspecified hearing loss, unspecified ear (principal) | CPT/HCPCS: 92557; 92567 ==

== ENCOUNTER 2024-04-18 15:22 | Outpatient (CLI) | payer OTHER, SELFPAY ==
--- NOTE | ~2024-04-18 | XR_ITS ---
XR abdomen/kub 1V Ordering provider: Nupur Rubi PA-C History: . HX of kidney stones pain on right side . Comparison: January 21, 2024 FINDINGS: BOWEL: Nonobstructive bowel gas pattern. ORGANOMEGALY: None. SIGNIFICANT PATHOLOGIC CALCIFICATIONS: None. OTHER: No free air is seen under the diaphragm. IMPRESSION: NO ACUTE ABDOMINAL FINDINGS. Reviewed, dictated and finalized at location A.
== END 2024-04-18 15:23 | disposition home or self-care (01) ==
PROVIDERS: PCP Family Medicine; Visit Provider Physician Assistant
DX: Z87.442 Personal history of urinary calculi (principal)
CPT/HCPCS: 74018

== ENCOUNTER 2024-07-24 13:50 | Outpatient (CLI) | payer OTHER, SELFPAY ==
--- NOTE | ~2024-07-24 | XR_ITS ---
XR abdomen/kub 1V Ordering provider: Jarrett Walker MD History: . FLANK PAIN, ACUTE . Comparison: None. FINDINGS: BOWEL: Nonobstructive bowel gas pattern. ORGANOMEGALY: None. SIGNIFICANT PATHOLOGIC CALCIFICATIONS: None. OTHER: No free air is seen under the diaphragm. IMPRESSION: NO ACUTE ABDOMINAL FINDINGS. Reviewed, dictated and finalized at location A. LE PULLER
== END 2024-07-24 13:51 | disposition home or self-care (01) ==
PROVIDERS: PCP Family Medicine; Visit Provider Urology
DX: R10.9 Unspecified abdominal pain (principal)
CPT/HCPCS: 74018

== ENCOUNTER 2024-12-15 14:35 | Outpatient (CLI) | payer OTHER, SELFPAY ==
--- NOTE | ~2024-12-15 | CT_ITS ---
CT Scan of the Chest without Contrast: Clinical Indication: Neoplasm of unspecified behavior Technique: Contiguous sections were acquired throughout the chest without intravenous contrast. Dose reduction technique was used on this scan by utilizing automated exposure control and iterative recon struction technique. The dose-length product (DLP) was 73.47 mGy-cm. COMPARISON: 07/20/2023 Findings: There is no evidence of any significant mediastinal, hilar or axillary lymphadenopathy. The mediastin al soft tissues appear normal. There is no evidence of pleural or pericardial effusion. The lungs are clear. No pulmonary nodules or infiltrates are noted. Images through the upper abdomen reveal diffuse hepatic steatosis. Impression: No significant abnormalities seen in the chest. Diffuse hepatic steatosis. Reviewed, dictated and finalized at [facility]. Impression: No significant abnormalities seen in the chest. Diffuse hepatic steatosis.
--- OUTSIDE RECORDS SUMMARY | 2024-12-15 14:51 | XMS_ITS | Clinical Summary ---
Author Organization [facility] Address [address] 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 Active topiramate (TOPAMAX) 50 mg tablet Take 1 Tablet by mouth daily at bedtime. 3 Active montelukast (SINGULAIR) 10 mg tablet Take 1 Tablet by mouth daily. 3 Active Qvar RediHaler 80 mcg/actuation HFA Aerosol Breath Activated Take 2 Puffs by inhalation every 4 hours as needed. 3 Active amitriptyline (ELAVIL) 10 mg tablet Take 1 Tablet by mouth daily at bedtime. 3 Active ALPRAZolam (XANAX) 0.25 mg tablet Take 0.25 mg by mouth 2 times daily as needed. 3 Active albuterol sulfate HFA 90 mcg/actuation aerosol inhaler Take 2 Puffs by inhalation every 6 hours as needed. 3 Active erythromycin base (ERYTHROMYCIN ORAL) Take 50 mg by mouth daily. Active cetirizine (ZyrTEC) 10 mg tablet Take 10 mg by mouth daily. Active fluticasone propionate (FLONASE) 50 mcg/spray [place], Suspension nasal inhaler Administer 1 [place] in each nostril daily. 3 Active omeprazole (PriLOSEC) 20 mg Capsule, Delayed Release(E.C.) Take 20 mg by mouth 2 times daily. Active acetaminophen (TYLENOL) 500 mg tablet Take 1 Tablet (500 mg) by mouth every 8 hours as needed for Pain, Mild / Temperature. 50 Tablet 3 Active ondansetron (ZOFRAN ODT) 4 mg Tablet, Rapid Dissolve Take 1 Tablet (4 mg) by mouth every 6 hours as needed for Nausea/Vomiting . Dissolve tablet on top of tongue, then swallow with saliva. 20 Tablet 01/10/2023 2:55 PM CDT 3 Active gabapentin (NEURONTIN) 100 mg capsule Take 2 Capsules (200 mg) by mouth 3 times daily. 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 Unable to obtain 01/08/2023 Food Insecurity Answer Date Recorded Social/Environmental Concerns No concerns Transportation Needs Answer Date Record ed Social/Environmental Concerns No concerns Housing Stability Answer Date Recorded Social/Environmental Concerns No concerns Utility Needs Answer Date Recorded Social/Environmental Concerns No concerns Comments No Sex and Gender Information Value Date Recorded Sex Assigned at Not on file Legal Sex Female 9:48 AM CDT Gender Identity Not on file Sexual Orientation Not on file Last Filed Vital Signs Vital Sign Reading Time Taken Comments Blood Pressure 124/76 02/09/2023 12:31 PM CDT Pulse 91 02/09/2023 12:31 PM CDT Temperature 37 C (98.6 F) 01/10/2023 11:13 AM CDT Respiratory Rate 15 01/10/2023 11:13 AM CDT Oxygen Saturation 97% 02/09/2023 12:31 PM CDT Inhaled Oxygen Concentration - - Weight 82.1 kg (181 lb) 02/09/2023 12:31 PM CDT Height 167.6 cm (5' 6 ) 02/09/2023 12:31 PM CDT Body Mass Index 29.21 02/09/2023 12:31 PM CDT Plan of Treatment Health Maintenance Due Date Last Done Comments DTAP/TDAP/TD VACCINES (1 - Tdap) 1989 HEPATITIS B VACCINES (1 of 3 - 19+ 3-dose series) 1989 COLORECTAL SCREENING 12/15/2015 Colorectal Cancer Screening 12/15/2015 FIT-DNA Q 3 years 12/15/2015 FIT/FOBT Q 1 year 12/15/2015 Flex Sig/CT Colonography Q 5 years 12/15/2015 ZOSTER VACCINE (1 of 2) 2020 BREAST CANCER SCREENING 08/05/2023 08/05/19 23, 05/14/2021, 05/15/2020, Additional history exists INFLUENZA VACCINE (#1) 2024 Insurance [place] [id number] [place] [id number] [employer] Directives For more information, please contact: [phone] * Full Code (Latest Code Status on File) Date Activated Date Inactivated Comments 01/08/2023 5:32 PM 01/10/2023 3:36 PM * Full Code Date Activated Date Inactivated Comments 01/08/2023 7:32 AM 01/08/2023 5:32 PM * Full Code Date Activated Date Inactivated Comments 01/08/2023 5:57 AM 01/08/2023 7:32 AM
--- OUTSIDE RECORDS SUMMARY | 2024-12-15 14:51 | XMS_ITS | Patient Health Record ---
Author Organization [facility] les Address [address] [place] [address] Care Team Providers Care Tools Administrator Name Role Phone Saulo CALDERON, Natalie Primary Care Provider Unav Molly Alexandre Unavailable [phone] Allergies Allergen (clinical drug ingredient) Drug/Non Drug Allergy documented on EMR Reaction Allergy Type Onset Date Status EPINEPHrine Unknown Drug Allergy 05/19/2006 Acti ve lidocaine Lidocaine Unknown Drug Allergy 05/19/2006 Active codeine Codeine Unknown Drug Allergy 05/19/2006 Active Results Component Value Reference Range Notes Anti-CCP (Cyclic Citrullinat ed Peptide Ab) Reviewed date:05/15/2024 07:58:49 PM Interpretation: Performing Lab:[facility] , [facility]. [place] [address] Notes/Report: CCP Ab <0.5 <=2.9 units/mL Interpretive data Negative: <3 units/mL Positive: > or equal to 3 units/mL Current interpretive data was last revised on 2016. C Reactive Protein Reviewed date:05/12/2024 12:48:06 PM Interpretation: Performing Lab:[facility] , [address] [place] [address] Notes/Report: C-Reactive Protein 12.5 <=10.0 mg/L CBC w auto diff Reviewed date:05/12/2024 12:48:06 PM Interpretation: Performing Lab:[facility] , [address] [place] [address] Notes/Report: WBC 11.2 3.8-9.9 K/cumm Hgb 12.4 11.9-15.5 g/dL Hct 38.0 35.6-45.5 % Platelet Ct 302 150-400 K/cumm MPV 10.7 9.1-12.3 fL RBC 3.99 3.90-5.20 M/cumm MCV 95.2 81.3-96.4 fL MCH 31.1 27.1-33.3 pg MCHC 32.6 32.3-35.7 g/dL RDW CV 12.3 11.1-14.9 % RDW SD 42.6 35.7-48.1 fL NRBC Abs Auto 0.00 0.00-0.01 K/cumm Complement C3 Reviewed date:05/12/2024 12:48:06 PM Interpretation: Performing Lab:[facility] , [address] [place] [address]. [facility] [address] Notes/Report: Complement, C3 176 90-180 mg/dL Complement C4 Reviewed date:05/12/2024 12:48:06 PM Interpretation: Performing Lab:[facility] , [address] [place] [address]. [facility] [address] Notes/Report: Complement, C4 34 10-40 mg/dL Comprehensive metabolic pane l (CMP) Reviewed date:05/12/2024 12:48:06 PM Interpretation: Performing Lab:[facility] , [address] [place] [address]. [facility] [address] Notes/Report: Sodium 138 135-145 mmol/L Plasma Potassium 3.8 3.3-4.9 mmol/L Chloride 102 97-110 mmol/L Total CO2 25 22-32 mmol/L Anion Gap 11 2-15 mmol/L BUN 11 6-25 mg/dL Creatinine 0.77 0.60-1.10 mg/dL Glucose 124 70-199 mg/dL Interpretive Data Fasting glucose >/= 126 mg/dl is diagnostic for diabetes. Fasting is defined as no caloric intake for at least 8 hours. Fasting glucose between 100 mg/dl to 125 mg/dl is diagnostic of prediabetes. In a patient with classic symptoms of hyperglycemia or hyperglycemic crisis, a random glucose >/= 200 mg/dl is diagnostic for diabetes. In the absence of unequivocal hyperglycemia, results should be confirmed by repeat testing. The classification and Diagnosis of Diabetes Diabetes Care 2021; 46: S19-S40. Current interpretive data was last revised 2022. Total Calcium 8.9 8.5-10.3 mg/dL Total Bilirubin 0.2 0.1-1.2 mg/dL Plasma Total Protein 7.1 6.5-8.5 g/dL Albumin 4.2 3.5-5.0 g/dL Alkaline Phosphatase 148 40-130 Units/L ALT 48 7-45 Units/L AST 35 10-45 Units/L Creatine Kinase Reviewed date:05/12/2024 12:48:06 PM Interpretation: Performing Lab:[facility] , [facility] [facility]. [place] [address] Notes/Report: Total CK 81 30-200 Units/L Rheumatoid Factor Reviewed date:05/12/2024 12:48:07 PM Interpretation: Performing Lab:[facility] , [facility] [facility]. [place] [address] Notes/Report: RF, Oj <10 <=15 IUnits/mL Sed Rate Reviewed date:05/12/2024 12:48:07 PM Interpretation: Performing Lab:[facility] , [facility] [address] [facility] [place] [address] Notes/Report: ESR 19 1-30 mm/hr NAN Ql reflex to Qn Reviewed date:05/15/2024 07:58:49 PM Interpretation: Performing Lab:[facility] , [facility] [place] [address] Notes/Report: NAN, Oj 1:320 Testing performed by: [facility], [address] [place]., [address] Differential Automated Reviewed date:05/12/2024 12:48:06 PM Interpretation: Performing Lab:[facility] , [facility] [facility] [place] [address] Notes/Report: Neut Abs 7.1 1.5-6.5 K/cumm ImmGran Abs 0.0 0.0-0.1 K/cumm Lymphocyte Abs 3.3 0.8-3.3 K/cumm [place] Abs 0.6 0.2-0.8 K/cumm Eos Abs 0.2 0.0-0.5 K/cumm Baso Abs 0.0 0.0-0.1 K/cumm Neut Pct 62.9 Interpretive Data Percent cell count reference ranges are not reported, since discordance with absolute values may lead to misinterpretation of CBC data. Current Interpretive Data was last revised on 2017. ImmGran Pct 0.4 Interpretive Data Percent cell count reference ranges are not reported, since discordance with absolute values may lead to misinterpretation of CBC data. Current Interpretive Data was last revised on 2017. Lymph Pct 29.4 Interpretive Data Percent cell count reference ranges are not reported, since discordance with absolute values may lead to misinterpretation of CBC data. Current Interpretive Data was last revised on 2017. [place] Pct 5.4 Interpretive Data Percent cell count reference ranges are not reported, since discordance with absolute values may lead to misinterpretation of CBC data. Current Interpretive Data was last revised on 2017. Eos Pct 1.5 Interpretive Data Percent cell count reference ranges are not reported, since discordance with absolute values may lead to misinterpretation of CBC data. Current Interpretive Data was last revised on 2017. Baso Pct 0.4 Interpretive Data Percent cell count reference ranges are not reported, since discordance with absolute values may lead to misinterpretation of CBC data. Current Interpretive Data was last revised on 2017. Urinalysis reflex microscopi c exam Reviewed date:05/12/2024 12:48:06 PM Interpretation: Performing Lab:[facility] , [address] [place] [address]. [facility] [address] Notes/Report: Color, Ur Yellow Yellow Clarity, Ur Clear Clear Spec Grav, Ur 1.021 1.003-1.030 pH, Ur 6.0 Interpretive Data ?Urine pH is affected by diet, medications, systemic acid-base disturbances, and renal tubular function. pH may affect urinary stone formation. For example, urine pH below 6.0 may help reduce the tendency for calcium phosphate stones and pH greater than 6.0 may reduce the tendency for uric acid stone formation. Source: Clarity Current Interpretive Data was last revised on 2017 Protein, Ur Ql Trace Negative Glucose, Ur Ql Negative Negative Ketones, Ur Negative Negative Bilirubin, Ur Negative Negative Blood, Ur 1+ Negative Urobilinogen, Ur <2.0 <2.0 mg/dL Nitrite, Ur Negative Negative Leukocyte Esterase, Ur Negative Negative UA Micro (All Sites) Reviewed date:05/12/2024 12:48:06 PM Interpretation: Performing Lab:[facility] , [address] [facility]. [place] [address] Notes/Report: WBC, Ur 0-5 0-5 /HPF RBC, Ur 3-5 0-2 /HPF Epithl Squam, Ur 1-5 0-5 /HPF Mucous Ur Present eGFR Reviewed date:05/12/2024 12:48:06 PM Interpretation: Performing Lab:[facility] , [address] [facility]. [place] [address] Notes/Report: eGFR >90 >=60 mL/min/1.73 m2 Interpretive Data Reference Interval Normal >/= 90 mL/min/1.73m2 Mildly decreased* 60 - 89 mL/min/1.73m2 Mildly to moderately decreased 45 - 59 mL/min/1.73m2 Moderately to severely decreased 30 - 44 mL/min/1.73m2 Severely decreased 15 - 29 mL/min/1.73m2 Kidney Failure < 15 mL/min/1.73m2 *Relative to young adult level Estimated glomerular filtration rate is determined by the 2020 CKD-EPI equation recommended by the National Kid[employer] (A Unifying Approach to GFR Estimation: Recommendations of the NKF-ASK Task Force on Reassessing the Inclusion of Race in Diagnosing Kidney Disease, JASN 2020). The CKD-EPI equation should not be used for patients with unstable renal function and has not been validated in children and those over 70. Current interpretive data was last reviewed 2021. Reason For Referral No Information Medications Medication SIG (Take, Route, Frequency, Duration) Notes Start Date End Date Status Telmisartan 20 MG take 1 tablet Orally Once a day for 30 day(s) Active Potassium Citrate ER 15 MEQ (1620 MG) 1 tablet with meals Orally Twice a day for 30 day(s) Active Albuterol Sulfate HFA 108 (90 Base) MCG/ACT 1 puff as needed Inhalation every 4 hrs prn Active Estradiol 0.075 MG/24HR 1 patch to skin Transdermal Two times a Week for 30 day(s) Active Eletriptan Hydrobromide 40 MG 1 tablet Orally Once a day for 1 day(s) Active Montelukast Sodium 10 MG 1 tablet Orally Once a day for 30 day(s) Active Amitriptyline HCl 10 MG take 2 tablets O rally Once a day for 30 day(s) Active DULoxetine HCl 30 MG 1 capsule Orally On ce a day for 30 days 11/17/2024 Active Gabapentin 100 MG 2 capsules Orally 3 times a day for 30 day(s) Active Fluticasone Propionate 50 MCG/ACT 1 spray in each nostril Nasally Once a day for 30 day(s) Active Metoprolol Succinate ER 25 MG 1 tablet Orally twice a day for 30 day(s) Active Omeprazole Active Social History Tobacco Use: Social History Observation Description Date Details (start date - stop date) Never Smoker NA - NA Household Question Answer Notes Marital status: Tobacco Control (Standard) Question Answer Notes Tobacco use: Nonsmoker Problems Problem Type SNOMED Code ICD Code Onset Dates Problem Status W/U Status Risk Notes Problem 087555680 Fibromyalgia (M79.7) Active confirmed Problem Undifferentiated connective tissue disease (397923159) Undifferentiated connective tissue disease (M35.9) Active confirmed Problem Paresthesia (80019537) Paresthesia (R20.2) Active confirmed Problem C-reactive protein abnormal (820602158) CRP elevated (R79.82) Active confirmed Vital Signs Heart Rate 90 /min 11/17/2024 Temperature 98.5 degrees Fahrenheit 11/17/2024 Height-cm 167.64 cm 11/17/2024 Blood pressure diastolic 78 mm Hg 11/17/2024 Oximetry 95 % 11/17/2024 Weight-kg 90.31 kg 11/17/2024 Height 66 in 11/17/2024 Blood pressure systolic 120 mm Hg 11/17/2024 Weight 199.1 lbs 11/17/2024 BMI 32.13 kg/m2 11/17/2024 Encounters Encounter Location Date Provider Diagnosis [facility] [address] [place] [address] 01/11/2024 Molly Du Paresthesia R20.2 ; Undifferentiated connective tissue disease M35.9 ; NAN positive R76.8 ; CRP elevated R79.82 ; Pain in right shoulder M25.511 and Pain in left shoulder M25.512 [facility] [address] [place] [address] 05/11/2024 Molly Du Paresthesia R20.2 ; Undifferentiated connective tissue disease M35.9 ; NAN positive R76.8 and CRP elevated R79.82 [facility] [address] [place] [address] 11/17/2024 Molly Du NAN positive R76.8 ; Undifferentiated connective tissue disease M35.9 ; CRP elevated R79.82 and Fibromyalgia M79.7 [facility] [address] [address] [place] [address] 05/22/2024 Molly Du Assessments Encounter Date Diagnosis (ICD Code) Assessment Notes Treatment Notes Treatment Clinical Notes Section Notes 01/11/2024 Paresthesia (ICD-10 - R20.2) symptoms unchanged, discussed plaquenil again, she watned to hold off for now, will continue to monitor, start PT for shoulders, return in 4 months 05/11/2024 Paresthesia (ICD-10 - R20.2) symptoms unchanged, discussed plaquenil again, she wanted to hold off for now, will continue to monitor, continue PT, labs today, return in 6 months 11/17/2024 NAN positive (ICD-10 - R76.8) has several trigger points, andrea also has fibromyalgia , start cymbalta 30mg/day, return in 3 months 11/17/2024 Undifferentiated connective tissue disease (ICD-10 - M35.9) has several trigger points, andrea also has fibromyalgia , start cymbalta 30mg/day, return in 3 months 11/17/2024 CRP elevated (ICD-10 - R79.82) has several trigger points, andrea also has fibromyalgia , start cymbalta 30mg/day, return in 3 months 05/11/2024 NAN positive (ICD-10 - R76.8) symptoms unchanged, discussed plaquenil again, she wanted to hold off for now, will continue to monitor, continue PT, labs today, return in 6 months 05/11/2024 Undifferentiated connective tissue disease (ICD-10 - M35.9) symptoms unchanged, discussed plaquenil again, she wanted to hold off for now, will continue to monitor, continue PT, labs today, return in 6 months 01/11/2024 NAN positive (ICD-10 - R76.8) symptoms unchanged, discussed plaquenil again, she watned to hold off for now, will continue to monitor, start PT for shoulders, return in 4 months 01/11/2024 Undifferentiated connective tissue disease (ICD-10 - M35.9) symptoms unchanged, discussed plaquenil again, she watned to hold off for now, will continue to monitor, start PT for shoulders, return in 4 months 01/11/2024 CRP elevated (ICD-10 - R79.82) symptoms unchanged, discussed plaquenil again, she watned to hold off for now, will continue to monitor, start PT for shoulders, return in 4 months 05/11/2024 CRP elevated (ICD-10 - R79.82) symptoms unchanged, discussed plaquenil again, she wanted to hold off for now, will continue to monitor, continue PT, labs today, return in 6 months 11/17/2024 Fibromyalgia (ICD-10 - M79.7) has several trigger points, andrea also has fibromyalgia , start cymbalta 30mg/day, return in 3 months 01/11/2024 Pain in right shoulder (ICD-10 - M25.511) symptoms unchanged, discussed plaquenil again, she watned to hold off for now, will continue to monitor, start PT for shoulders, return in 4 months 01/11/2024 Pain in left shoulder (ICD-10 - M25.512) symptoms unchanged, discussed plaquenil again, she watned to hold off for now, will continue to monitor, start PT for shoulders, return in 4 months Plan Of Treatment Pending Test Test Name Order Date Creatine Kinase,Total,Serum 06/22/2023 Complement C4, Serum 07/05/2023 Urinalysis, Routine 07/05/2023 Urinalysis, Routine 10/11/2023 CBC With Differential/Platelet Sedimentation Rate-Westergren 06/22/2023 Sedimentation Rate-Westergren 07/05/2023 Complement C3, Serum 07/05/2023 Rheumatoid Arthritis Factor 06/22/2023 C-Reactive Protein, Quant 06/22/2023 C-Reactive Protein, Quant 07/05/2023 C-Reactive Protein, Quant 10/11/2023 Sjogren's Ab, Anti-SS-A/-SS-B 06/22/2023 Antiscleroderma-70 Antibodies 07/05/2023 Lupus Anticoagulant Reflex 07/05/2023 Anticardiolipin Ab, IgG/M, Qn 07/05/2023 Anticardiolipin Ab, IgM, Qn 10/11/2023 Beta-2 Glycoprotein I Ab,G,A,M CCP IgG Antibodies 06/22/2023 NAN w/Reflex 06/22/2023 Hepatitis BsAg 06/22/2023 Hepatitis C antibody 06/22/2023 Chem-Comprehensive 06/22/2023 NAN reflex titer pattern LAKIA + dsDNA 05/2024 UA, reflex Micro to Culture 05/11/2024 Next Appt Details Provider Name:Molly Ordoñez, [birth year] 10:00:00 AM, [address], [place], [address], Insurance Providers Payer Name Payer Address Payer Phone Subscriber Number Group Number Insured Name Patient Relationship to Insured Coverage Start Date Coverage End Date [facility] [employer] [address] [address] [place] [address] [id number] Natalie Harding Self - patient is the insured Medical (General) History Medical History History ICD Code Skin Cancer, Date of Onset: 05/19/2006 ; anxiety asthma endometriosis kidney stones thymoma SIBO endometriosis Surgical History Surgery Date(Month/Year) thymoma removal lithotripsy bowel resection (endometriosis)
--- OUTSIDE RECORDS SUMMARY | 2024-12-15 14:51 | XMS_ITS ---
Author Organization [facility] les Address [address] [facility] [address] [place] [address] Care Team Providers Care Heel Stiffener Name Role Phone Natalie Vernon MD Primary Care Provider Unav ailable Molly Huerta Unavailable [phone] Allergies Allergen (clinical drug ingredient) Drug/Non Drug Allergy documented on EMR Reaction Allergy Type Onset Date Status EPINEPHrine Unknown Drug Allergy 05/19/2006 Acti ve lidocaine Lidocaine Unknown Drug Allergy 05/19/2006 Active codeine Codeine Unknown Drug Allergy 05/19/2006 Active Results Component Value Reference Range Notes Sed Rate Reviewed date:05/12/2024 12:48:07 PM Interpretation: Performing Lab:[facility] , [address] [place] [address]. [facility] [address] Notes/Report: ESR 19 1-30 mm/hr Rheumatoid Factor Reviewed date:05/12/2024 12:48:07 PM Interpretation: Performing Lab:[facility] , [address] [place] [address]. [facility] [address] Notes/Report: RF, Oj <10 <=15 IUnits/mL Creatine Kinase Reviewed date:05/12/2024 12:48:06 PM Interpretation: Performing Lab:[facility] , [address] [place] [address]. [facility] [address] Notes/Report: Total CK 81 30-200 Units/L Comprehensive metabolic pane l (CMP) Reviewed date:05/12/2024 12:48:06 PM Interpretation: Performing Lab:[facility] , [address] [place] [address]. [facility] [address] Notes/Report: Sodium 138 135-145 mmol/L Plasma Potassium [...] 48 7-45 Units/L AST 35 10-45 Units/L Complement C4 Reviewed date:05/12/2024 12:48:06 PM Interpretation: Performing Lab:[facility] , [address] [place] [address]. [place] [address] Notes/Report: Complement, C4 34 10-40 mg/dL Complement C3 Reviewed date:05/12/2024 12:48:06 PM Interpretation: Performing Lab:[facility] , [address] [place] [address]. [place] [address] Notes/Report: Complement, C3 176 90-180 mg/dL CBC w auto diff Reviewed date:05/12/2024 12:48:06 PM Interpretation: Performing Lab:[facility] , [address] [place] [address]. [place] [address] Notes/Report: WBC 11.2 3.8-9.9 K/cumm Hgb 12.4 11.9-15.5 g/dL Hct 38.0 35.6-45.5 % Platelet Ct 302 150-400 K/cumm MPV 10.7 9.1-12.3 fL RBC 3.99 3.90-5.20 M/cumm MCV 95.2 81.3-96.4 fL MCH 31.1 27.1-33.3 pg MCHC 32.6 32.3-35.7 g/dL RDW CV 12.3 11.1-14.9 % RDW SD 42.6 35.7-48.1 fL NRBC Abs Auto 0.00 0.00-0.01 K/cumm C Reactive Protein Reviewed date:05/12/2024 12:48:06 PM Interpretation: Performing Lab:[facility] , [facility]. [facility] [address] Notes/Report: C-Reactive Protein 12.5 <=10.0 mg/L Anti-CCP (Cyclic Citrullinat ed Peptide Ab) Reviewed date:05/15/2024 07:58:49 PM Interpretation: Performing Lab:[facility] , [address] [place] [address]. [facility] [address] Notes/Report: CCP Ab <0.5 <=2.9 units/mL Interpretive data Negative: <3 units/mL Positive: > or equal to 3 units/mL Current interpretive data was last revised on 2016. REASON FOR VISIT yd/4 month follow up/flc, CTD, PCP Natalie Vernon MD [address] [place] [address] Medications Medication SIG (Take, Route, Frequency, Duration) Notes Start Date End Date Status Gabapentin 100 MG 1 capsule Orally angel e 1 tab in am, 1 tab in afternoon, then 2 tabs at bedtime for 30 day(s) Active Eletriptan Hydrobromide 40 MG 1 tablet Orally Once a day for 1 day(s) Active Omeprazole Active Fluticasone Propionate 50 MCG/ACT 1 spray in each nostril Nasally Once a day for 30 day(s) Active Amitriptyline HCl 10 MG take 2 tablets O rally Once a day for 30 day(s) Active Montelukast Sodium 10 MG 1 tablet Orally Once a day for 30 day(s) Active Potassium Citrate ER 15 MEQ (1620 MG) 1 tablet with meals Orally Twice a day for 30 day(s) Active Metoprolol Succinate ER 25 MG 1 tablet Orally twice a day for 30 day(s) Active Telmisartan 20 MG take 1 tablet Orally Once a day for 30 day(s) Active Social History Tobacco Use: Social History Observation Description Date Details (start date - stop date) Never Smoker NA - NA Household Question Answer Notes Marital status: Tobacco Control (Standard) Question Answer Notes Tobacco use: Nonsmoker Problems Problem Type SNOMED Code ICD Code Onset Dates Problem Status W/U Status Risk Notes Problem Paresthesia (56563024) Paresthesia (R20.2) Active confirmed Problem Undifferentiated connective tissue disease (281811781) Undifferentiated connective tissue disease (M35.9) Active confirmed Problem C-reactive protein abnormal (205314151) CRP elevated (R79.82) Active confirmed Vital Signs Temperature 97.7 degrees Fahrenheit 05/11/20 24 Blood pressure systolic 124 mm Hg 05/11/20 24 Blood pressure diastolic 74 mm Hg 024 Heart Rate 84 /min 05/11/2024 Height 66 in 05/11/2024 Weight 195.8 lbs 05/11/2024 BMI 31.6 kg/m2 05/11/2024 Oximetry 95 % 05/11/2024 Height-cm 167.64 cm 05/11/2024 Weight-kg 88.8 kg 05/11/2024 Encounters Encounter Location Date Provider Diagnosis [facility] [address] [facility] [address] [place] [address] 05/11/2024 Molly Du Paresthesia R20.2 ; Undifferentiated connective tissue disease M35.9 ; NAN positive R76.8 and CRP elevated R79.82 Assessments Encounter Date Diagnosis (ICD Code) Assessment Notes Treatment Notes Treatment Clinical Notes Section Notes 05/11/2024 Paresthesia (ICD-10 - R20.2) symptoms unchanged, discussed plaquenil again, she wanted to hold off for now, will continue to monitor, continue PT, labs today, return in 6 months 05/11/2024 Undifferentiated connective tissue disease (ICD-10 - M35.9) symptoms unchanged, discussed plaquenil again, she wanted to hold off for now, will continue to monitor, continue PT, labs today, return in 6 months 05/11/2024 NAN positive (ICD-10 - R76.8) symptoms unchanged, discussed plaquenil again, she wanted to hold off for now, will continue to monitor, continue PT, labs today, return in 6 months 05/11/2024 CRP elevated (ICD-10 - R79.82) symptoms unchanged, discussed plaquenil again, she wanted to hold off for now, will continue to monitor, continue PT, labs today, return in 6 months Plan Of Treatment Pending Test Test Name Order Date NAN reflex titer pattern LAKIA + dsDNA 05/2024 UA, reflex Micro to Culture 05/11/2024 Next Appt Details Follow Up: 4 Months, Reason: Provider Name:Molly Huerta, 02/09 10:00:00 AM, [address] [facility] [address], [place], [address], Progress Notes * Natalie MEADOWS LDOB: (53 yo F)Acc No.[id number]:05/11/2024 Progress Notes Patient: Natalie GONZALEZ [place] Provider: Real HUERTA MD :1970 A ge:53 Y S ex:Female Date:05/11/2024 Address:[address] [place], [place] [address] [id number] Pcp:Natalie Vernon MD Subjective: * Chief Complaints: * y d/4 month follow up/flc, CTDPCP Natalie Vernon MD [facility] [address] [place] [address] * HPI: G eneral Follow up: receiving PT, helping some, neck and R shioulder and feet bother her today, Gabapentin has helped with symptoms Prescribed for cough). 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, helping receiving clerk increase gabapentin, helping with cough (hx of thymoma removal) hx of kidney stones, sees urologist ROS: +recent history of mouth ulcers, +dry eyes and dry mouth, +facial redness, has one spot on scalp, no photosensitivity, no Raynaud's, +some hair thinning 10/11/2023, cardiolipin IgM (-), CRP21.7, UA: 2+blood, RBC 0-2, WBC 0-5, 4+ bacteria, +mucus 07/10/2023, lupus anticoagulant (-), [id number] (-), ACL IgM 13 (<13), C3 normal, C4 39 (12-38), SCL 70 (-), ESR normal, CRP 14, UA WBC >30, occult blood 1+, RBC 0-2, WBC esterase 2+ 06/22/23, RF/CCP (-), NAN 1:640 (speckled), LAKIA (-), DNA (-), SSA/SSB (-), ESR normal, CRP 42.5, CK normal, HBV/HCV (-), WBC 11.3, Hb 12.7, [id number], Cr 0.7, AST NORMAL, ALT 50. * ROS: G eneral / Constitutional: Patient denies f talat, chills. P atient complains of fatigue. M usculoskeletal: Patient complains of s ee HPI. S kin: Patient denies r jesus. * Medical History: * Surgical History: t hymoma removal lithotripsy bowel resection (endometriosis) * Hospitalization/Major Diagno stic Procedure: * Family History: F ather: diagnosed with Essential hypertension. M other: diagnosed with Essential hypertension. * Social History: T obacco Use: T obacco Control (Standard) T obacco use: N onsmoker. D rug/Alcohol: D o you drink alcohol?: None. H ousehold: H ousehold M arital status: m arried. M iscellaneous: E xercise: No. * Medications: T akingMontelukast Sodium 10 MG Tablet 1 tablet Orally Once a day Eletriptan Hydrobromide 40 MG Tablet 1 tablet Orally Once a day Gabapentin 100 MG Capsule 1 capsule Orally take 1 tab in am, 1 tab in afternoon, then 2 tabs at bedtime Amitriptyline HCl 10 MG Tablet take 2 tablets Orally Once a day Fluticasone Propionate 50 MCG/ACT Suspension 1 spray in each nostril Nasally Once a day Omeprazole Metoprolol Succinate ER 25 MG Tablet Extended Release 24 Hour 1 tablet Orally twice a day Potassium Citrate ER 15 MEQ (1620 MG) Tablet Extended Release 1 tablet with meals Orally Twice a day Telmisartan 20 MG Tablet take 1 tablet Orally Once a day Taking Montelukast Sodium 10 MG Tablet 1 tablet Orally Once a day Taking Eletriptan Hydrobromide 40 MG Tablet 1 tablet Orally Once a day Taking Gabapentin 100 MG Capsule 1 capsule Orally take 1 tab in am, 1 tab in afternoon, then 2 tabs at bedtime Taking Amitriptyline HCl 10 MG Tablet take 2 tablets Orally Once a day Taking Fluticasone Propionate 50 MCG/ACT Suspension 1 spray in each nostril Nasally Once a day Taking Omeprazole Taking Metoprolol Succinate ER 25 MG Tablet Extended Release 24 Hour 1 tablet Orally twice a day Taking Potassium Citrate ER 15 MEQ (1620 MG) Tablet Extended Release 1 tablet with meals Orally Twice a day Taking Telmisartan 20 MG Tablet take 1 tablet Orally Once a day DiscontinuedErythromycin Medication List reviewed and reconciled with the patientDiscontinued Erythromycin Medication List reviewed and reconciled with the patient * Allergies: E PINEPHrine: Allergy - Onset Date 05/19/2006Lidocaine: Allergy - Onset Date 05/19/2006Codeine: Allergy - Onset Date 05/19/2006no[Allergies Verified] Objective: * Vitals: B P:124/74mm Hg, HR:84/min, Temp:97.7F, Oxygen sat %:95%, Wt:195.8lbs, Wt- k.8kg, Ht:66in, Ht-cm:167.64cm, BMI:31.6Index, Body Surface Area:2.03. * Examination: G eneral Examination: General appearance: a lert, well-nourished and in no acute distress. Head: n ormocephalic, atraumatic. Eyes: n ormal. Skin: n o rash. Lungs: r espiratory effort normal. N eurology: Speech: n ormal. P sychiatry: Affect / mood: a ppropriate. R heumatology: m ild pain in R shoulder with abduction,. Assessment: * Assessment: 1. U ndifferentiated connective tissue disease - M35.9 (Primary) 2 . P aresthesia - R20.2 3 . A NA positive - R76.8 4 . C RP elevated - R79.82 symptoms unchanged, discusse d plaquenil again, she wanted to hold off for now, will continue to monitor, continue PT, labs today, return in 6 months Plan: * Treatment: Value Reference Range C RP 12.5 H <=10.0 - mg/L * This lab was reviewed by Elle Huerta on 05/12/2024 at 12:48 PM CDT LAB: Creatine Kinase* Value Reference Range C K Totl 81 30-200 - Units/L * This lab was reviewed by Elle Huerta on 05/12/2024 at 12:48 PM CDT LAB: Comprehensive metabolic panel (CMP)* Value Reference Range B UN 11 6-25 - mg/dL * A LT 48 H 7-45 - Units/L * A lbumin 4.2 3.5-5.0 - g/dL * A lk Phos 148 H 40-130 - Units/L * A ST 35 10-45 - Units/L * B manjinder Totl 0.2 0.1-1.2 - mg/dL * C alcium 8.9 8.5-10.3 - mg/dL * C hloride 102 97-110 - mmol/L * G lucose 124 70-199 - mg/dL * P otassium Plas 3.8 3.3-4.9 - mmol/L * C O2 Totl 25 22-32 - mmol/L * P rotein Plas 7.1 6.5-8.5 - g/dL * C reatinine 0.77 0.60-1.10 - mg/dL * S odium 138 135-145 - mmol/L * A nion Gap 11 2-15 - mmol/L * This lab was reviewed by Elle Huerta on 05/12/2024 at 12:48 PM CDT LAB: Rheumatoid Factor* Value Reference Range R F Qn <10 <=15 - IUnits/mL * This lab was reviewed by Elle Huerta on 05/12/2024 at 12:48 PM CDT LAB: CBC w auto diff* Value Reference Range W BC 11.2 H 3.8-9.9 - K/cumm * R BC 3.99 3.90-5.20 - M/cumm * H gb 12.4 11.9-15.5 - g/dL * H ct 38.0 35.6-45.5 - % * M CV 95.2 81.3-96.4 - fL * M CH 31.1 27.1-33.3 - pg * M CHC 32.6 32.3-35.7 - g/dL * P lt 302 150-400 - K/cumm * M PV 10.7 9.1-12.3 - fL * R DW CV 12.3 11.1-14.9 - % * R DW SD 42.6 35.7-48.1 - fL * N RBC Abs Auto 0.00 0.00-0.01 - K/cumm * This lab was reviewed by Elle Huerta on 05/12/2024 at 12:48 PM CDT LAB: Anti-CCP (Cyclic Citrullinated Peptide Ab)* Value Reference Range C CP Ab <0.5 <=2.9 - units/mL * This lab was reviewed by Elle Huerta on 05/15/2024 at 19:58 PM CDT LAB: NAN reflex titer pattern LAKIA + dsDNA LAB: Sed Rate* Value Reference Range E SR 19 1-30 - mm/hr * This lab was reviewed by Elle Huerta on 05/12/2024 at 12:48 PM CDT LAB: Complement C3* Value Reference Range C omp C3 176 90-180 - mg/dL * This lab was reviewed by Elle Huerta on 05/12/2024 at 12:48 PM CDT LAB: Complement C4* Value Reference Range C omp C4 34 10-40 - mg/dL * This lab was reviewed by Elle Huerta on 05/12/2024 at 12:48 PM CDT * Procedure Codes: * Follow Up: 4 Months * Billing Information: * Visit Code: 64884 Office Visit, Est Pt., Level 4. * Procedure Codes: * Sign off status: Completed true * Provider: Real HUERTA MD Date: 1 Generated for Mario wade/Enrique/Jaleesa on: 0 12/15/2024 02:51 PM CDT History and Physical Notes * HPI (History of Present Illness) Category Sub-Category Detail Notes Category Not es General Follow up receiving PT, helping some, neck and R shioulder and feet bother her today, Gabapentin has helped with symptoms Prescribed for cough). 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, helping receiving clerk increase gabapentin, helping with cough (hx of thymoma removal) hx of kidney stones, sees urologist ROS: +recent history of mouth ulcers, +dry eyes and dry mouth, +facial redness, has one spot on scalp, no photosensitivity, no Raynaud's, +some hair thinning 10/11/2023, cardiolipin IgM (-), CRP21.7, UA: 2+blood, RBC 0-2, WBC 0-5, 4+ bacteria, +mucus 07/10/2023, lupus anticoagulant (-), [id number] (-), ACL IgM 13 (<13), C3 normal, C4 39 (12-38), SCL 70 (-), ESR normal, CRP 14, UA WBC >30, occult blood 1+, RBC 0-2, WBC esterase 2+ 06/22/23, RF/CCP (-), NAN 1:640 (speckled), LAKIA (-), DNA (-), SSA/SSB (-), ESR normal, CRP 42.5, CK normal, HBV/HCV (-), WBC 11.3, Hb 12.7, [id number], Cr 0.7, AST NORMAL, ALT 50 Examination Category Sub-Category Detail Notes Category Not es Rheumatology mild pain in R shoulder with abduction, Neurology Speech: normal Psychiatry Affect / mood: appropriate General Examination General appearance: alert, w ell-nourished and in no acute distress Head: normocephalic, atrau matic Eyes: normal Lungs: respiratory effort n ormal Skin: no rash
--- OUTSIDE RECORDS SUMMARY | 2024-12-15 14:52 | XMS_ITS | Clinical Summary ---
Author Organization [facility] Address [address] [place] [address] Care Team Providers Care Reel Stripper Name Role Phone Natalie Vernon MD Primary Care Provider [phone] Source Comments [facility],non-owned Affiliates and Associated Physician Practices is amultiple site organization consisting of ambulatory clinics and hospital sitesin [place], [place], [place] and [place]. This disclosure is being madepursuant to the Care Everywhere program and may not contain all information available regarding this patient. Last updated 18.[facility] Allergies Active Allergy Reactions Criticality Noted Date Comments Adhesive Sensitivity Rash Medium 05/14/2017 Codeine Nausea and/or Vomiting Low 12/15/2022 Dexamethasone Urticaria,Itching,Rash High 10/25/2020 Medications * Be aware that medications may not be up to date on this document. Alwaysverify current medications with the patient. topiramate (Topamax) 50 MG tablet Take 1 (one) tablet by mouth at bedtime 10/23/2022 Active omeprazole (PriLOSEC) 20 MG capsule Take 1 (one) capsule by mouth 2 times daily Active montelukast (Singulair) 10 MG tablet Take 1 (one) tablet by mouth once daily 02/03/2023 Active fluticasone propionate (Flonase) 50 MCG/ACT nasal spray [place] 1 (one) spray into the nose once daily 11/30/2022 Active eletriptan (Relpax) 40 MG tablet Take 1 (one) tablet by mouth every 2 hours as needed 05/26/2022 Active amitriptyline (Elavil) 10 MG tablet Take 1 (one) tablet by mouth at bedtime 05/26/2022 Active cetirizine (ZyrTEC) 10 MG tablet Take 1 (one) tablet by mouth once daily Active albuterol HFA (Proventil; Ventolin; Proair) 108 (90 Base) MCG/ACT inhaler Inhale 2 (two) puffs by mouth every 6 hours as needed 10/23/2022 Active Erythromycin Base (ERYTHROMYCIN PO) Take 50 mg by mouth once daily Active Cholecalciferol (vitamin D3) 1.25 MG (54030 UT) capsule Take 1 (one) capsule by mouth every 7 days Active Multiple Vitamins-Minera ls (CENTRUM SILVER 50+WOMEN PO) Take 1 tablet by mouth once daily Active beclomethasone HFA (Qvar RediHaler) 80 MCG/ACT inhaler Inhale 2 (two) puffs by mouth every 4 hours as needed 11/20/2022 Active gabapentin (Neurontin) 100 MG capsuleIndicati ons:Chronic Cough Take 1 (one) capsule by mouth 3 times daily Reasons: Chronic Cough 90 capsule 3 04/07/2023 Active Immunizations Immunization Administration Dates Next Due COVID MODERNA BIVALENT 12Y+ 50MCG/0.5ML 06/07/20 22 MODERNA SARS-COV-2 COVID-19 VACCINE 0.25ML 06/28 Family History Medical History Relation Name Comments Eczema Brother CVA Father Dementia Father Hearing Loss - Congenital Father Hyperlipidemia Father Anxiety Disorder Mother Arthritis - Rheumatoid Mother Eczema Mother Hyperlipidemia Mother Hypertension Mother Relation Name Status Comments Brother Father Mother Social History Tobacco Use Types Packs/Day Years Used Date Smoking Tobacco: Never Smokeless Tobacco: Never Tobacco Cessation:Counseling Given: Not Answered Alcohol Use Standard Drinks/Week Comments Never 0 (1 standard drink = 0.6 oz pur e alcohol) Comments Unknown Sex and Gender Information Value Date Recorded Sex Assigned at Not on file Legal Sex Female 11:11 AM CDT Gender Identity Not on file Sexual Orientation Not on file Last Filed Vital Signs Vital Sign Reading Time Taken Comments Blood Pressure 142/95 03/11/2023 9:26 AM CDT Pulse 93 03/11/2023 9:26 AM CDT Temperature - - Respiratory Rate - - Oxygen Saturation - - Inhaled Oxygen Concentration - - Weight 86.6 kg (191 lb) 03/11/2023 9:26 AM CDT Height 167.6 cm (5' 6 ) 03/11/2023 9:26 AM CDT Body Mass Index 30.83 03/11/2023 9:26 AM CDT Plan of Treatment Health Maintenance Due Date Last Done Comments COLOGUARD (AGES 45-75) - COL ON CA SCREENING 1970 COLON MONITORING 1970 COLONOSCOPY - COLON CA SCREENING 1970 CT COLONOGRAPHY - COLON CA SCREENING 1970 Colorectal Cancer Screening 1970 FIT - COLON CA SCREENING 1970 FLEX SIG - COLON CA SCREENING 1970 LIPID TESTING 1970 MAMMOGRAM 1970 PAP SMEAR 1970 HIV SCREENING 1985 HEPATITIS C SCREENING 12/09/1988 DTAP/TDAP/TD VACCINES (1 - Tdap) 1989 HEPATITIS B VACCINE (1 of 3 - 19+ 3-dose series) 1989 PNEUMOCOCCAL VACCINE 50+ (1 of 1 - PCV) 2020 ZOSTER VACCINE (1 of 2) 2020 SCREENING FOR DIABETES 02/17/2023 COVID-19 VACCINE (4 - 2023-2 5 season) 2024 06/07/2022, 06/28/2021, 10/08/2020 DEPRESSION SCREENING 08/02/2024 INFLUENZA VACCINE (Season Ended) 2025 HIB VACCINE Aged Out No longer eligi ble based on patient's age to complete this topic HPV VACCINE Aged Out No longer eligi ble based on patient's age to complete this topic MENINGOCOCCAL (Group B) VACCINE SHARED DECISION-MAKING Aged Out No longer eligible based on patient's age to complete this topic MENINGOCOCCAL GROUPS A/C/Y/W VACCINE Aged Out No longer eligible b ased on patient's age to complete this topic Insurance [facility] Care Teams Reel Stripper Relationship Specialty Start Date End Date Natalie Vernon MD [address] Erica [place], [id number] PCP - General Family Medicine 02/17/23
--- OUTSIDE RECORDS SUMMARY | 2024-12-15 14:52 | XMS_ITS ---
Author Organization [facility] les Address [address] [facility] [address] [place] [address] Care Team Providers Care Internet Assessor Name Role Phone Saulo CALDERON, Natalie Primary Care Provider Unav ailable Molly Huerta Unavailable [phone] Allergies Allergen (clinical drug ingredient) Drug/Non Drug Allergy documented on EMR Reaction Allergy Type Onset Date Status EPINEPHrine Unknown Drug Allergy 05/19/2006 Acti ve lidocaine Lidocaine Unknown Drug Allergy 05/19/2006 Active codeine Codeine Unknown Drug Allergy 05/19/2006 Active REASON FOR VISIT yd/6 month follow up/flc, CTD, PCP Natalie Vernon MD [address] [place] [address] Medications Medication SIG (Take, Route, Frequency, Duration) Notes Start Date End Date Status Albuterol Sulfate HFA 108 (90 Base) MCG/ACT 1 puff as needed Inhalation every 4 hrs prn Active Eletriptan Hydrobromide 40 MG 1 tablet Orally Once a day for 1 day(s) Active Montelukast Sodium 10 MG 1 tablet Orally Once a day for 30 day(s) Active DULoxetine HCl 30 MG 1 capsule Orally On ce a day for 30 days 11/17/2024 Active Gabapentin 100 MG 2 capsules Orally 3 times a day for 30 day(s) Active Telmisartan 20 MG take 1 tablet Orally Once a day for 30 day(s) Active Potassium Citrate ER 15 MEQ (1620 MG) 1 tablet with meals Orally Twice a day for 30 day(s) Active Estradiol 0.075 MG/24HR 1 patch to skin Transdermal Two times a Week for 30 day(s) Active Metoprolol Succinate ER 25 MG 1 tablet Orally twice a day for 30 day(s) Active Omeprazole Active Amitriptyline HCl 10 MG take 2 tablets O rally Once a day for 30 day(s) Active Fluticasone [...] Problem Status W/U Status Risk Notes Problem 247000386 Fibromyalgia (M79.7) Active confirmed Vital Signs Temperature 98.5 degrees Fahrenheit 11/18/19 25 Blood pressure systolic 120 mm Hg 11/18/19 25 Blood pressure diastolic 78 mm Hg 025 Heart Rate 90 /min 11/17/2024 Height 66 in 11/17/2024 Weight 199.1 lbs 11/17/2024 BMI 32.13 kg/m2 11/17/2024 Oximetry 95 % 11/17/2024 Height-cm 167.64 cm 11/17/2024 Weight-kg 90.31 kg 11/17/2024 Encounters Encounter Location Date Provider Diagnosis [facility] [address] [facility] [address] [place] [address] 11/17/2024 Molly Huerta NAN positive R76.8 ; Undifferentiated connective tissue disease M35.9 ; CRP elevated R79.82 and Fibromyalgia M79.7 Assessments Encounter Date Diagnosis (ICD Code) Assessment Notes Treatment Notes Treatment Clinical Notes Section Notes 11/17/2024 NAN positive (ICD-10 - R76.8) has [...] cymbalta 30mg/day, return in 3 months 11/17/2024 Fibromyalgia (ICD-10 - M79.7) has several trigger points, andrea also has fibromyalgia , start cymbalta 30mg/day, return in 3 months Plan Of Treatment Medication Medication Name Sig Start Date Stop Date Notes DULoxetine HCl 30 MG 1 capsule Orally On ce a day for 30 days 11/17/2024 Next Appt Details Follow Up: 3 Months, Reason: Provider Name:Molly Tiago, 02/09 10:00:00 AM, [address] [facility] [address], [place], [address], Progress Notes * SOWNatalie WILKERSON LDOB: (53 yo F)Acc No.[id number]:11/17/2024 Progress Notes Patient: Natalie GONZALEZ Provider: Real HUERTA MD :1970 A ge:53 Y S ex:Female Date:11/17/2024 Address:[address] [place] [address] [facility] Pcp:Natalie Vernon MD Subjective: * Chief Complaints: * Y d/6 month follow up/flcCTDPCP Natalie Vernon MD [address] [place], [place] [id number] * HPI: G eneral Follow up: feet, legs and knee ache, whole body aches sometimes, am stiffness: 30 min, on gabapentin (rescribed for cough), helping a little with pain she does not want plaquenil She also has IBS type of symptoms and 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, helping it infrastructure consultant prescribed gabapentin, helping with cough (hx of thymoma removal) hx of kidney stones, sees urologist ROS: +recent history of mouth ulcers, +dry eyes and dry mouth, +facial redness, has one spot on scalp, no photosensitivity, no Raynaud's, +some hair thinning 05/2024, NAN 1:320, RF/CCP (-), ESR normal, CRP 12.5, C3 and C4 and CK normal, UA: RBC 3-5, Hb 11.2, ALT 48, AST normal, alk phos 148, Cr 0.77 10/11/2023, cardiolipin IgM (-), CRP21.7, UA: 2+blood, RBC 0-2, WBC 0-5, 4+ bacteria, +mucus 07/10/2023, lupus anticoagulant (-), [id number] (-), ACL IgM 13 (<13), C3 normal, C4 39 (12-38), SCL 70 (-), ESR normal, CRP 14, UA WBC >30, occult blood 1+, RBC 0-2, WBC esterase 2+ 06/22/23, RF/CCP (-), NAN 1:640 (speckled), LAKIA (-), DNA (-), SSA/SSB (-), ESR normal, CRP 42.5, CK normal, HBV/HCV (-), WBC 11.3, Hb 12.7, [id number], Cr 0.7, AST NORMAL, ALT 50. * [...] Once a day Gabapentin 100 MG Capsule 2 capsules Orally 3 times a day Amitriptyline HCl 10 MG Tablet take 2 [...] take 1 tablet Orally Once a day Estradiol 0.075 MG/24HR Patch Twice Weekly 1 patch to skin Transdermal Two times a Week Albuterol Sulfate HFA 108 (90 Base) MCG/ACT Aerosol Solution 1 puff as needed Inhalation every 4 hrs prn Medication List reviewed and reconciled with the patientTaking Montelukast Sodium 10 MG Tablet 1 tablet Orally Once a day Taking Eletriptan Hydrobromide 40 MG Tablet 1 tablet Orally Once a day Taking Gabapentin 100 MG Capsule 2 capsules Orally 3 times a day Taking Amitriptyline HCl 10 MG Tablet take [...] 1 tablet Orally Once a day Taking Estradiol 0.075 MG/24HR Patch Twice Weekly 1 patch to skin Transdermal Two times a Week Taking Albuterol Sulfate HFA 108 (90 Base) MCG/ACT Aerosol Solution 1 puff as needed Inhalation every 4 hrs prn Medication List reviewed and reconciled with the patient * Allergies: E PINEPHrine: Allergy - Onset Date 05/19/2006Lidocaine: Allergy - Onset Date 05/19/2006Codeine: Allergy - Onset Date 05/19/2006no[Allergies Verified] Objective: * Vitals: B P:120/78mm Hg, HR:90/min, Temp:98.5F, Oxygen sat %:95%, Wt:199.1lbs, Wt- k.31kg, Ht:66in, Ht-cm:167.64cm, BMI:32.13Index, Body Surface Area:2.05. * Examination: G eneral Examination: General appearance: a lert, well-nourished and in no acute distress. Head: n ormocephalic, atraumatic. Eyes: n ormal. Skin: f acial erythema. Lungs: r espiratory effort normal. N eurology: Speech: n ormal. P sychiatry: Affect / mood: a ppropriate. R heumatology: m ild pain in R shoulder with abduction, trigger points: anterior chest pain, R trapexius, scapular, hips, knees and elbows. Assessment: * Assessment: 1. U ndifferentiated connective tissue disease - M35.9 (Primary) 2 . A NA positive - R76.8 3 . C RP elevated - R79.82 4 . F ibromyalgia - M79.7 has several trigger points, andrea also has fibromyalgia, start cymbalta 30mg/day, return in 3 months Plan: * Treatment: * Procedure Codes: * Follow Up: 3 Months * Billing Information: * Visit Code: 67824 Office Visit, Est Pt., Level 4. 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, helping it infrastructure consultant prescribed gabapentin, helping with cough (hx of thymoma removal) hx of kidney stones, sees urologist ROS: +recent history of mouth ulcers, +dry eyes and dry mouth, +facial redness, has one spot on scalp, no photosensitivity, no Raynaud's, +some hair thinning 05/2024, NAN 1:320, RF/CCP (-), ESR normal, CRP 12.5, C3 and C4 and CK normal, UA: RBC 3-5, Hb 11.2, ALT 48, AST normal, alk phos 148, Cr 0.77 10/11/2023, cardiolipin IgM (-), CRP21.7, UA: 2+blood, RBC 0-2, WBC 0-5, 4+ bacteria, +mucus 07/10/2023, lupus anticoagulant (-), [id number] (-), ACL IgM 13 (<13), C3 normal, C4 39 (12-38), SCL 70 (-), ESR normal, CRP 14, UA WBC >30, occult blood 1+, RBC 0-2, WBC esterase 2+ 06/22/23, RF/CCP (-), NAN 1:640 (speckled), LAKIA (-), DNA (-), SSA/SSB (-), ESR normal, CRP 42.5, CK normal, HBV/HCV (-), WBC 11.3, Hb 12.7, [id number], Cr 0.7, AST NORMAL, ALT 50 Examination Category Sub-Category Detail Notes Category Not es Rheumatology mild pain in R shoulder with abduction, trigger points: anterior chest pain, R trapexius, scapular, hips, knees and elbows Neurology Speech: normal Psychiatry Affect / mood: appropriate General Examination General appearance: alert, w ell-nourished and in no acute distress Head: normocephalic, atrau matic Eyes: normal Lungs: respiratory effort n ormal Skin: facial erythema
--- OUTSIDE RECORDS SUMMARY | 2024-12-15 14:52 | XMS_ITS ---
Author Organization [facility] les Address [address] [facility] [address] [place] [address] Care Team Providers Care Purchasing Administrator Name Role Phone Natalie Vernon MD Primary Care Provider Unav ailable Molly Ordoñez Unavailable [phone] REASON FOR VISIT labs Encounters Encounter Location Date Provider Diagnosis [facility] [address] [facility] [facility] [address] [place] [address] 05/22/2024 Molly Ordoñez Plan Of Treatment Next Appt Details Provider Name:Molly Tiago, 02/09 10:00:00 AM, [address] [facility] [address], [place], [address], Progress Notes * Natalie MEADOWS LDOB: (53 yo F)Acc No.[id number]:05/22/2024 Patient: Dell Natalie NEVAREZ :1970 A ge:53 Y S ex:Female Address:[address], [place], [address] * true * Date: Generated for Printi ng/Faxing/eTransmitting on: 0 12/15/2024 02:51 PM CDT
--- OUTSIDE RECORDS SUMMARY | 2024-12-15 14:52 | XMS_ITS | Clinical Summary ---
Author Organization [facility] Address [address] [place] [address] Care Team Providers Care Fashion Styling Intern Name Role Phone Unavailable Primary Care Provider Unavailabl e Social History Tobacco Use Types Packs/Day Years Used Date Smoking Tobacco: Never Assessed Comments Unknown Sex and Gender Information Value Date Recorded Sex Assigned at Not on file Legal Sex Female 7:37 PM CDT Gender Identity Not on file Sexual Orientation Not on file Plan of Treatment Health Maintenance Due Date Last Done Comments Cervical Cancer Screening Pa p Smear (Age 30 to 64) Every 3 Years 1970 Colorectal Cancer Screening Colonoscopy (10 Years) 1970 Annual Physical 1973 Hepatitis C 1988 DTaP, Tdap and Td Vaccines ( 1 - Tdap) 1989 Hepatitis B Vaccines (1 of 3 - 19+ 3-dose series) 1989 Cervical Cancer Screening Pa p with HPV Testing (Age 30 to 64) Every 5 Years 2000 Cervical Cancer Screening with HPV 2000 Mammogram Screening 2010 Pneumococcal Vaccine: 50+ Ye ars (1 of 1 - PCV) 2020 Zoster Vaccines (1 of 2) 2020 COVID-19 Vaccine ( - 2023-2 5 season) 2024 Meningococcal B Vaccine Aged Out No l onger eligible based on patient's age to complete this topic Meningococcal Vaccine Aged Out No eliezer amira eligible based on patient's age to complete this topic RSV Immunizations Under 20 Months Aged Out No longer eligible based on patient's age to complete this topic
--- OUTSIDE RECORDS SUMMARY | 2024-12-15 14:52 | XMS_ITS | Encounter Summary ---
Author Organization [facility] Address [address] [facility] [place] [address] Care Team Providers Care Straight Cutter Machine Name Role Phone Natalie Vernon MD Primary Care Provider [phone] Encounter Details Date Type Department Care Team (Late st Contact Info) Description 02/20/2020 Lab Requisition [facility] [address] [facility] [place] [id number] Lali Wagner DO [address] [facility] [address] [place] [address] Social History Tobacco Use Types Packs/Day Years Used Date Smoking Tobacco: Never Assessed Comments Unknown Sex and Gender Information Value Date Recorded Sex Assigned at Not on file Legal Sex Female 11:11 AM CDT Gender Identity Not on file Sexual Orientation Not on file documented as of this encounter Plan of Treatment Not on file documented as of this encounter Procedures Procedure Name Priority Date/Time Associated Diagnosis Comments DERMATOPATHOLOGY Routine 02/19/2020 12:0 0 AM CDT documented in this encounter Results * DERMATOPATHOLOGY (02/19/2020 12:00 AM CDT) Case Report Dermatopathology Report Case: [id number] Authorizing Provider: Lali Wagner DO Collected: 02/19/2020 12:00 AM Ordering Location: [facility] Received: 02/20/2020 06:33 AM Pathologist: Bernice Aguilar MD Specimen: Skin, right lateral LE 0 7:49 PM CDT DERMATOPATHOLOGY LABORATORY Final Diagnosis Specimen A. SKIN, right lateral LE: SEBORRHEIC KERATOSIS, MACULAR (L82.1) 0 7:49 PM CDT DERMATOPATHOLOGY LABORATORY Clinical History ISK R/O NMSC. 0 7:49 PM CDT DERMATOPATHOLOGY LABORATORY Gross Description Specimen A: Received is one formalin filled container labeled with the patient's name and designated right lateral LE. The specimen consists of a shave measuring [id number]. Jar 0. 0 7:49 PM CDT DERMATOPATHOLOGY LABORATORY Microscopic Description Specimen A. SKIN, right lateral LE: Sections show a relatively broad, flat proliferation of small keratinocytes. The surface is gently papillated, and there is increased basilar pigmentation. 0 7:49 PM CDT DERMATOPATHOLOGY LABORATORY Disclaimer An external and internal positive and negative controls are appropriate for the histochemical, immunohistochemical and immunofluorescence stain(s) in this case (if any), except where stated explicitly. The performance characteristics of the stain(s) cited in this report were developed and its performance characteristic determined by the Dermatopathology Laboratory at [facility], directed by Dr. Johanny Tapia. These tests need not be, and therefore are not, approved by the [place] Food and Drug Administration. The tests are used for clinical purposes. Billing Codes Specimen Charges Stain Charges 89712 1 0 7:49 PM CDT DERMATOPATHOLOGY LABORATORY Embedded Images 0 7:49 PM CDT DERMATOPATHOLOGY LABORATORY Pathology/Cytolog y TISSUE SPECIMEN FROM SKIN / Unknown 02/19/2020 02/20/2020 6:33 AM CDT us Lali Wagner DO LAB - PATHOLOGY/CYTOLOGY ORDERABLES Final Result DERMATOPATHOLOGY LABORATORY [facility] - Department of Dermatology [employer] [address], [facility] [phone] documented in this encounter Visit Diagnoses Not on filedocumented in this encounter Care Teams Straight Cutter Machine Relationship Specialty Start Date End Date Natalie Vernon MD [address] [place] [id number] PCP - General Family Medicine 02/17/23 documented as of this encounter
--- OUTSIDE RECORDS SUMMARY | 2024-12-15 14:52 | XMS_ITS | Encounter Summary ---
Author Organization [facility] Healthcare Address [address] [place] [address] Care Team Providers Care Manager Emergency Department Name Role Phone Oswaldo Mcadams MD Unavailable [phone] Natalie Vernon MD Primary Care Provider + Nathan Bai Unavailable Encounter Details Date Type Department Care Team (Late st Contact Info) Description 04/25/2023 Documentation [facility] Surgeon [address] [place] [address] Jarrett Walker MD [address] [facility] [address] [place] [address] Social History Tobacco Use Types Packs/Day Years Used Date Smoking Tobacco: Never Smokeless Tobacco: Never Alcohol Use Standard Drinks/Week Comments No 0 (1 standard drink = 0.6 oz pur e alcohol) AUDIT-C Answer Date Recorded Q1: How often do you have a drink containing alcohol? Never 02/23/2023 Q2: How many drinks containi ng alcohol do you have on a typical day when you are drinking? Patient does not drink Q3: How often do you have si x or more drinks on one occasion? Never 02/23/2023 Comments No Sex and Gender Information Value Date Recorded Sex Assigned at Not on file Legal Sex Female 2:04 AM LEAD ENGINEER Gender Identity Female 12/08/2021 8:49 PM CDT Sexual Orientation Straight 12/08/2021 8: 49 PM CDT documented as of this encounter Plan of Treatment Not on file documented as of this encounter Visit Diagnoses Not on filedocumented in this encounter Care Teams Manager Emergency Department Relationship Specialty Start Date End Date Natalie Vernon MD PCP - General Family Medicine 06/05/22 Oswaldo Mcadams MD Obstetrics and Gynecology 05/14/17 Nathan Bai PA [address] [place] [address] Referring Physician Physician Video Tape Duplicator 01/26/23 documented as of this encounter
--- OUTSIDE RECORDS SUMMARY | 2024-12-15 14:53 | XMS_ITS | Referral Summary ---
Author Organization [facility] Address [address] [place] [address] Care Team Providers Care Wafer Production Worker Name Role Phone Oswaldo Mcadams MD Unavailable [phone] Natalie Vernon MD Primary Care Provider + Nathan Bai Unavailable [phone] Allergies Active Allergy Reactions Criticality Noted Date Comments Adhesive Tape-Silicones Rash Medium 05/14/2017 Codeine Nausea & Vomiting Low 05/19/2006 Dexamethasone Phosphate Blisters,Itching,Rash,Redness High 10/25/2020 Medications albuterol HFA (PROVENTIL HFA,VENTOLIN HFA,PROAIR HFA) 90 mcg/actuation inhaler Inhale 2 puffs every 6 (six) hours as needed for wheezing or shortness of breath Active valACYclovir (VALTREX) 1 gram tablet Take 1 tablet (1,000 mg total) by mouth daily as needed (fever blister) 1 Active cetirizine (ZyrTEC) 10 mg tablet Take 1 tablet (10 mg total) by mouth daily Active gabapentin (NEURONTIN) 100 mg capsule Take 1 capsule (100 mg total) by mouth 3 (three) times a day 3 Active montelukast (SINGULAIR) 10 mg tablet Take 1 tablet (10 mg total) by mouth every morning 2 Active fluticasone propionate (FLONASE) 50 mcg/actuation nasal spray Administer 1 spray into affected nostril(s) daily 3 Active acetaminophen (TYLENOL) 80 mg chewable tablet Take 1 tablet (80 mg total) by mouth every 4 (four) hours as needed for pain Active omeprazole (PriLOSEC) 10 mg capsule Take 1 capsule (10 mg total) by mouth 2 (two) times a day Active potassium citrate ER (UROCIT-K) 15 mEq tablet extended release Take 1 tablet (15 mEq total) by mouth 2 (two) times a day 3 Active dicyclomine (BENTYL) 10 mg capsule Take 1 capsule (10 mg total) by mouth 4 (four) times a day as needed (as needed for abdominal pain) 60 capsule 11 4 02/10/20 25 Active witch Carlee (TUCKS) 50 % pads, medicatedIndicat ions:Hemorrhoids Apply topically 2 (two) times a day 48 each 1 4 Active telmisartan (MICARDIS) 20 mg tablet Take 1 tablet (20 mg total) by mouth daily Active metoprolol XL (TOPROL-XL) 50 mg extended release tablet Take 1 tablet (50 mg total) by mouth daily 30 tablet 11 4 Active amitriptyline (ELAVIL) 10 mg tabletIndication s:Migraine without aura and without status migrainosus, not intractable Take 2 tablets (20 mg total) by mouth nightly 60 tablet 11 4 Active eletriptan (RELPAX) 40 mg tabletIndication s:Migraine Take 1 tablet (40 mg total) by mouth once as needed for migraine May repeat one time after 2 hours if needed. 18 tablet 3 4 Active benzonatate (TESSALON) 200 mg capsule TAKE 1 CAPSULE BY MOUTH THREE TIMES DAILY NEEDED FOR COUGH 4 Active amoxicillin-clav ulanate (AUGMENTIN) 875-125 mg per tablet TAKE 1 TABLET BY MOUTH TWICE DAILY UNTIL GONE 4 Active methylPREDNISolo ne (MEDROL DOSEPACK) 4 mg Dosepack 4 Active estradioL (VIVELLE-DOT) 0.075 mg/24 hrIndications:Ho rmone replacement therapy (HRT) Place 1 patch on the skin 2 (two) times a week 24 patch 3 5 Active Active Problems Problem Noted Date Diagnosed Date Non-alcoholic fatty liver disease 02/17/2024 Elevated liver enzymes 02/17/2024 Irritable bowel syndrome with diarrhea 4 Bloating 02/17/2024 Hydronephrosis with urinary obstruction due to ureteral calculus 04/25/2023 Moderate persistent asthma without complication 04/25/2023 Thymoma, benign 02/17/2023 Anxiety 12/15/2022 Asthma 12/15/2022 Enlarged tonsils and adenoids 12/15/2022 History of abdominal hysterectomy 12/15/2022 History of bowel resection 12/15/2022 History of laparoscopic appendectomy 12/15/2022 Plantar fasciitis 12/15/2022 Small intestinal bacterial overgrowth (SIBO) Tarsal tunnel syndrome of both lower extremities 12/15/2022 Migraine without aura and wi thout status migrainosus, not intractable 12/09/2021 Assessment & Plan (03/02/2024 2:35 PM CDT): The patient is a 53-year-old female with migraine headaches. At this point I will continue patient on current dose of amitriptyline and metoprolol for prevention. I went ahead and renewed both medications. I also renewed her eletriptan for rescue purposes. I will plan on following up with her in a year. She is to contact me in the interim with any concerns or questions. Assessment & Plan (12/11/2022 10:59 AM CDT): The patient is a 51-year-old female with migraine headaches. At this point her headaches are under good control with Topamax. Unfortunately she struggled with some other health issues as noted above. She also has hand numbness and tingling that is going to result in her getting an EMG next week. We did discuss today that it could also be vascular if it is autoimmune, such as Raynaud's. I will plan on seeing her back in 1 year. I encouraged to contact me in the interim if there is any concerns or questions. Assessment & Plan (05/26/2022 2:46 PM CDT): The patient is a 51-year-old female with migraine headaches. At this point she has been intolerant of higher doses of amitriptyline due to sedation. The frovatriptan did not work well for her as a rescue medication. We discussed today resuming her prior dose amitriptyline at 10 mg and starting Topamax instead as an alternative preventive therapy. I will titrate up to 50 mg at bedtime. With respect her rescue medication, she is effectively failed sumatriptan and frovatriptan. I am going to try her on Relpax. She still has samples of Ubrelvy to try as well. I will see her back in a couple months to discuss the efficacy. She is to contact me in the interim with any concerns or questions. This was a telemedicine visit with Ms. Flores which took place via tele doc During the visit, I was located in my office and the patient was located at work in the [facility]. The patient visit started at 2:05 p.m. and ended at 2:46 p.m.. The patient has been informed that the visit may not be secure and acknowledged the information. I have explained the option of participating in a telephone or video visit during the [facility] [place] [address] emergency to the patient. After being given an opportunity to ask questions about and discuss this type of visit, the patient verbally consented to proceeding with the telephone/video visit. The patient understands that this service replaces an office visit and they may be billed and/or responsible for any applicable copayments. Deep Conti MD I have explained the option of participating in a telephone or video visit during the [facility] emergency to the patient. After being given an opportunity to ask questions about and discuss this type of visit, the patient verbally consented to proceeding with the telephone/video visit. The patient understands that this service replaces an office visit and they may be billed and/or responsible for any applicable copayments. @[email or web address]@ @WA@ Assessment & Plan (12/09/2021 9:31 AM CDT): The patient is a 50-year-old female with episodic migraine headaches. At this time I suspect that the patient's migraines may be hormonally mediated. She had a hysterectomy but still retain . She has not gone through any symptoms to suggest menopause such as hot flashes. Thus, she likely has still hormonal cycles. She reports the headaches occur her several times a week for a week and then will go a few weeks between headaches. I asked her start tracking when these headaches occur so she can estimate when she would have these hormonal shifts. I think using frovatriptan here clearly the beginning of that cycle for the week would be beneficial. As an extremely long half life and umanzor prevent the headaches from occurring in the 1st place. I also recommended increasing her amitriptyline to 25 mg for prevention. This is a more typical does to start. Finally, I am going to give her samples of Ubrelvy to take should she have headaches that are not in the typical 1 week cycle and are sporadic. I encouraged her to take it earlier rather than later. I discussed the pharmacology of these rescue medications. I would like to see her back in a couple months by which time we should have seen the efficacy of this regimen. This was a telemedicine visit with Ms. Flores which took place via tele doc During the visit, I was located in my office and the patient was located at work in the [facility]. The patient visit started at 8:52 a.m. and ended at 9:32 a.m.. The patient has been informed that the visit may not be secure and acknowledged the information. I have explained the option of participating in a telephone or video visit during the [facility] emergency to the patient. After being given an opportunity to ask questions about and discuss this type of visit, the patient verbally consented to proceeding with the telephone/video visit. The patient understands that this service replaces an office visit and they may be billed and/or responsible for any applicable copayments. Deep Conti MD I have explained the option of participating in a telephone or video visit during the COVID-19 public health emergency to the patient. After being given an opportunity to ask questions about and discuss this type of visit, the patient verbally consented to proceeding with the telephone/video visit. The patient understands that this service replaces an office visit and they may be billed and/or responsible for any applicable copayments. @SIGENC2@ @WA@ Breast pain, left 05/17/2018 History of left breast biopsy 05/17/2018 Adult BMI 25.0-25.9 kg/sq m 05/17/2018 Post-operative state 05/31/2017 Fibroadenoma of left breast 05/31/2017 Mass of mediastinum 05/12/2017 Abdominal tenderness of left lower quadrant 0409/2016 Endometriosis 11/02/2016 Social History Tobacco Use Types Packs/Day Years Used Date Smoking Tobacco: Never Smokeless Tobacco: Never Tobacco Cessation:Counseling Given: No Alcohol Use Standard Drinks/Week Comments No 0 (1 standard drink = 0.6 oz pur e alcohol) AUDIT-C Answer Date Recorded Q1: How often do you have a drink containing alcohol? Never 03/02/2024 Q2: How many drinks containi ng alcohol do you have on a typical day when you are drinking? Patient does not drink Q3: How often do you have si x or more drinks on one occasion? Never 03/02/2024 Personal Safety Answer Date Recorded Have you ever been in or are you currently in a harmful physical or emotional relationship or is someone making you feel afraid or unsafe? Denies 07/16/2023 Comments No Sex and Gender Information Value Date Recorded Sex Assigned at Not on file Legal Sex Female 2:04 AM LOGGING TRUCK DRIVER Gender Identity Female 12/08/2021 8:49 PM CDT Sexual Orientation Straight 12/08/2021 8: 49 PM CDT Last Filed Vital Signs Vital Sign Reading Time Taken Comments Blood Pressure 116/76 06/14/2024 3:25 PM LOGGING TRUCK DRIVER Pulse 85 03/02/2024 1:47 PM CDT Temperature 36.3 C (97.4 F) 07/16/2023 10:44 AM LOGGING TRUCK DRIVER Respiratory Rate 18 03/02/2024 1:47 PM CDT Oxygen Saturation 96% 03/02/2024 1:47 PM CDT Inhaled Oxygen Concentration - - Weight 91.2 kg (201 lb) 06/14/2024 3:25 PM LOGGING TRUCK DRIVER Height 167.6 cm (5' 6 ) 03/02/2024 1:47 PM CDT Body Mass Index 32.44 03/02/2024 1:47 PM CDT Plan of Treatment Not on file Medical Devices Implanted Type Area Design Technician Device Identifier Shelf Expiration Date Model / Serial / Lot [email or web address] Manuel 4.8fr 26cm Taper Tip Low Profile Braid Suture Temporary Pigtail [id number] - [id number] Implanted:Qty: 1 on 04/25/2023 by Jarrett Walker MD at [facility] Stent Right: Ureter [email or web address] Manuel 12/29/2025 [id number] / / [id number] Procedures Procedure Name Priority Date/Time Associated Diagnosis Comments DIAGNOSTIC MAMMOGRAM BILATERAL W GABRIELE Schedule Routine, Read Routine (OP Routine) 10/06/2023 2:30 PM LOGGING TRUCK DRIVER Personal history of other specified conditions Other specified postprocedural states COLONOSCOPY Routine 07/16/2023 2:44 PM LOGGING TRUCK DRIVER HEPATITIS C ANTIBODY Routine 06/22/2023 12:41 PM LOGGING TRUCK DRIVER from Last 3 Months or Most Recently Relevant to Health Maintenance Results * Diagnostic Mammogram Bilateral W Gabriele (10/06/2023 2:30 PM LOGGING TRUCK DRIVER) Anatomical Region Laterality Modality Breast Bilateral Mammography 10/07/2023 7:42 AM LOGGING TRUCK DRIVER Impressions 10/07/2023 7:42 AM LOGGING TRUCK DRIVER 1. No mammographic finding of malignancy in the left breast. Management of breast pain can include interventions that may help some people such as caffeine abstention. Patient may also try warm compresses and more supportive bras at times of peak tenderness. 2. No mammographic or sonographic finding of malignancy in the right breast. ACR BI-RADS CATEGORY 2: BENIGN RECOMMENDATION: Annual screening mammography in 1 year is recommended. Findings and recommendations were communicated to the patient. *The patient's information was entered into a reminder system with a target due date for the next mammogram. Electronically signed by: YIN BAUMAN M.D. Narrative 10/07/2023 7:42 AM LOGGING TRUCK DRIVER EXAM: DIAGNOSTIC MAMMOGRAM BILATERAL W GABRIELE, US BREAST RIGHT LIMITED CLINICAL INDICATION: The patient presented for bilateral diagnostic mammography. She has had left breast pain. TECHNIQUE: Bilateral full-field digital diagnostic mammography with computer aided detection. 3D tomosynthesis images were performed. Limited/targeted sonography of the right breast performed. COMPARISON: FINDINGS: There are scattered areas of fibroglandular density. There is an upper outer quadrant low density circumscribed mass in the right breast. There are no suspicious calcifications or architectural distortion in either breast. Right breast ultrasound: There is a benign 1.2 x 1.3 x 0.8 cm cyst at 10:00 6 cm from the nipple corresponding to the upper outer quadrant mass seen on mammography. Incidentally noted additional benign 0.6 x 0.4 x 0.6 cm cyst at 10:00 3 cm from the nipple Natalie Vernon MD IMG MAMMO PROCEDURES Fin al Result * Colonoscopy (07/16/2023 2:44 PM LOGGING TRUCK DRIVER) Anatomical Region Laterality Modality Other us Historical Provider MD ENDOSCOPY PROCEDURES Addie l Result * Hepatitis C antibody Blood (06/22/2023 12:41 PM LOGGING TRUCK DRIVER) Hep C Ab Nonreactive Nonreactive [facility] Comment: Interpretive Data Nonreactive: Antibodies to HCV not detected. Does NOT exclude the possibility of recent exposure to HCV. Equivocal: Equivocal for HCV antibodies. Supplemental molecular testing will be automatically performed to determine infection status in accordance with current CDC screening recommendations. Reactive: Positive for HCV antibodies. This may represent current or past HCV infection. Supplemental molecular testing will be automatically performed to determine current infection status in accordance with current CDC screening recommendations. Interpretive data was last revised on 2019. Blood 06/22/2023 12:4 1 PM LOGGING TRUCK DRIVER 06/22/2023 4:15 PM LOGGING TRUCK DRIVER Molly Ordoñez MD LAB MICROBIOLOGY - GENERAL ORDER DONAL Final Result [facility] [address] Department [place] [address] from Last 3 Months or Most Recently Relevant to Health Maintenance Insurance [facility] [employer] [facility] [employer]/PPO Address: [place] [address] [facility]/PPO Address: [place] [address] [facility] [employer] [facility] [employer]/PPO Address: [address] [place] [address] [facility] [employer] [facility] [employer]/PPO Address: [address] [place] [address] [facility] [employer] [facility] [employer]/PPO Address: [address] [place] [address] Advance Directives For more information, please contact: [phone] * Full Code (Latest Code Status on File) Date Activated Date Inactivated Comments 04/25/2023 4:35 AM 04/25/2023 7:53 PM Care Teams Wafer Production Worker Relationship Specialty Start Date End Date Natalie Vernon MD PCP - General Family Medicine 06/05/22 Oswaldo Mcadams MD Obstetrics and Gynecology 05/14/17 Nathan Bai PA [address] [address] Referring Physician Physician Linen Room Houseperson 01/26/23
--- OUTSIDE RECORDS SUMMARY | 2024-12-15 14:53 | XMS_ITS | Clinical Summary ---
Author Organization [facility] Address [address] [place] [address] Care Team Providers Care Accounts Receivable Assistant Name Role Phone Oswaldo Mcadams MD Unavailable Natalie Vernon MD Primary Care Provider + Nathan Bai Unavailable [phone] Allergies Active Allergy Reactions Criticality Noted Date [...] patient was located at work in the [facility]. The patient visit started at 2:05 p.m. and ended at 2:46 p.m.. The patient has been informed that the visit may not be secure and acknowledged the information. I have explained the option of participating in a telephone or video visit during the [facility] [place] [address] emergency to the patient. After being given [...] a telephone or video visit during the [facility] emergency to the patient. After being given an opportunity to ask questions about and discuss this type of visit, the patient verbally consented to proceeding with the telephone/video visit. The patient understands that this service replaces an office visit and they may be billed and/or responsible for any applicable copayments. @[email or web address]@ @UT@ Assessment & Plan (12/09/2021 9:31 AM CDT): [...] patient was located at work in the [facility]. The patient visit started at 8:52 a.m. and ended at 9:32 a.m.. The patient has been informed that the visit may not be secure and acknowledged the information. I have explained the option of participating in a telephone or video visit during the [facility] emergency to the patient. After being given [...] and/or responsible for any applicable copayments. @SIGENC2@ @UT@ Breast pain, left 05/17/2018 History of left breast biopsy 05/17/2018 Adult BMI 25.0-25.9 kg/sq m 05/17/2018 Post-operative state 05/31/2017 Fibroadenoma of left breast 05/31/2017 Mass of mediastinum 05/12/2017 Abdominal tenderness of left lower quadrant 0409/2016 Endometriosis 11/02/2016 Surgical History Surgery Date Site/Laterality Comments HYSTERECTOMY 03/02/2011 - 04/01/2011 TLH / oophorectomy, one ovary remains, for endometriosis - Biest CHEST SURGERY Left APPENDECTOMY BOWEL RESECTION BREAST LUMPECTOMY CHOLECYSTECTOMY TONSILECTOMY, ADENOIDECTOMY, BILATERAL MYRINGOTOMY AND TUBES FOOT SURGERY Right CYST REMOVAL COLON SURGERY 2010 SECTION 2002 & 2004 SMALL INTESTINE SURGERY 2010 Medical History Medical History Date Comments Anxiety Asthma Pneumonia Depression GERD (gastroesophageal reflux disease) Small intestinal bacterial overgrowth (SIBO) Arthritis 2021 Cancer (HCC) 2022 Migraines 2010 Hypertension 2023 Kidney stone 2022 Family History Medical History Relation Name Comments Allergy (severe) Brother David Cortes Breast cancer Cousin 1st maternal Colon cancer Cousin 1st maternal Asthma Daughter 1 Komal Developmental delay Daughter 1 Komal Asthma Daughter 2 Milton Developmental delay Daughter 2 Milton Hearing loss Father David Hypertension Father David Memory loss Father David Stroke Father David Colon cancer Maternal cousin 1 Colon cancer Maternal cousin 2 Thyroid cancer Maternal cousin 4 Arthritis Mother Veda Hypertension Mother Veda Leukemia Mother's Brother Breast cancer Mother's Sister 1 Colon cancer Mother's Sister 2 Breast cancer Mother's Sister 3 Cancer Mother's Sister 03 January Asthma Son Debbi Ovarian cancer Neg Hx Uterine cancer Neg Hx Relation Name Status Comments Brothkristy Hernandez Jr. 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 INSTRUMENT REPAIRER Gender Identity Female 12/08/2021 8:49 PM CDT Sexual Orientation Straight 12/08/2021 8: 49 PM CDT Obstetrics History Para Term AB IAB SAB Ectopic Multiple Livin g Live Births 2 2 1 1 1 3 3 Date Outcome GA Total Labor Labor/2nd/3rd Weight Sex Type Anes PTL Lashawn A1 A5 Name Clin 2002 36w 0d F C-Sec tion Living 2002 36w 0d F C-Sec tion Living 2004 Term 38w 0d M C-Sec tion Living Comments twins Last Filed Vital Signs Vital Sign Reading Time Taken Comments Blood Pressure 116/76 06/14/2024 3:25 PM BRASSWIND INSTRUMENT REPAIRER Pulse 85 03/02/2024 1:47 PM CDT Temperature 36.3 C (97.4 F) 07/16/2023 10:44 AM BRASSWIND INSTRUMENT REPAIRER Respiratory Rate 18 03/02/2024 1:47 PM CDT Oxygen Saturation 96% 03/02/2024 1:47 PM CDT Inhaled Oxygen Concentration - - Weight 91.2 kg (201 lb) 06/14/2024 3:25 PM BRASSWIND INSTRUMENT REPAIRER Height 167.6 cm (5' 6 ) 03/02/2024 1:47 PM CDT Body Mass Index 32.44 03/02/2024 1:47 PM CDT Plan of Treatment Health Maintenance Due Date Last Done Comments Depression Screening 1970 DTaP/Tdap/Td Vaccine (1 - Tdap) 1981 Hepatitis B Screening 1988 Pneumococcal vaccine <65 (1 of 2 - PCV) 1989 Zoster Vaccine (1 of 2) 2020 Covid-19 Vaccine (3 - 2023-2 5 season) 2024 06/28/2021, 10/08/2020 Breast Cancer Screening-Mammogram 10/05/2024 10/06/2023, 08/05/2022, 08/05/2022, Additional history exists Influenza Vaccine (Season Ended) 2025 Regular Well Visit/Exam 18-64 05/10/2025 05/10/2024, 05/06/2023 Colon Cancer Screening-Colonoscopy 07/16/2033 07/16/2023, 07/16/2023, 04/09/2016, Additional history exists Hepatitis C Screening Completed 06/22/2023 Medical Devices Implanted Type Area Case Management Rn Device Identifier Shelf Expiration Date Model / Serial / Lot [employer] Manuel 4.8fr 26cm Taper Tip Low Profile Braid Suture Temporary Pigtail [id number] - [id number] Implanted:Qty: 1 on 04/25/2023 by Jarrett Walker MD at [facility] Stent Right: Ureter [employer] Manuel 12/29/2025 [id number] / / [id number] Procedures Procedure Name Priority Date/Time Associated Diagnosis Comments DIAGNOSTIC MAMMOGRAM BILATERAL W GABRIELE Schedule Routine, Read Routine (OP Routine) 10/06/2023 2:30 PM BRASSWIND INSTRUMENT REPAIRER Personal history of other specified conditions Other specified postprocedural states COLONOSCOPY Routine 07/16/2023 2:44 PM BRASSWIND INSTRUMENT REPAIRER HEPATITIS C ANTIBODY Routine 06/22/2023 12:41 PM BRASSWIND INSTRUMENT REPAIRER from Last 3 Months or Most Recently Relevant to Health Maintenance Results * Diagnostic Mammogram Bilateral W Gabriele (10/06/2023 2:30 PM BRASSWIND INSTRUMENT REPAIRER) Anatomical Region Laterality Modality Breast Bilateral Mammography 10/07/2023 7:42 AM BRASSWIND INSTRUMENT REPAIRER Impressions 10/07/2023 7:42 AM BRASSWIND INSTRUMENT REPAIRER 1. No mammographic finding of malignancy in [...] YIN BAUMAN M.D. Narrative 10/07/2023 7:42 AM BRASSWIND INSTRUMENT REPAIRER EXAM: DIAGNOSTIC MAMMOGRAM BILATERAL W GABRIELE, US [...] al Result * Colonoscopy (07/16/2023 2:44 PM BRASSWIND INSTRUMENT REPAIRER) Anatomical Region Laterality Modality Other [facility] Provider ENDOSCOPY PROCEDURES Addie l Result * Hepatitis C antibody Blood (06/22/2023 12:41 PM BRASSWIND INSTRUMENT REPAIRER) Hep C Ab Nonreactive Nonreactive [facility] Comment: Interpretive Data Nonreactive: Antibodies to HCV [...] on 2019. Blood 06/22/2023 12:4 1 PM BRASSWIND INSTRUMENT REPAIRER 06/22/2023 4:15 PM BRASSWIND INSTRUMENT REPAIRER us Molly Ordoñez MD LAB MICROBIOLOGY - GENERAL ORDER DONAL Final Result [facility] Arie Ordoñez Bryan Department [place] [address] from Last 3 Months or Most Recently Relevant to Health Maintenance Insurance [facility] CHOICE PLUS [facility] CHOICE PLUS [facility] CHOICE PLUS [facility] CHOICE PLUS [facility] CHOICE PLUS Advance Directives For more information, please contact: [phone] * Full Code (Latest Code Status on File) Date Activated Date Inactivated Comments 04/25/2023 4:35 AM 04/25/2023 7:53 PM Care Teams Accounts Receivable Assistant Relationship Specialty Start Date End Date Natalie Vernon MD PCP - General Family Medicine 06/05/22 Oswaldo Mcadams MD Obstetrics and Gynecology 05/14/17 Nathan Bai PA [address] [place] [address] Referring Physician Physician Sew Out Operator 01/26/23
== END 2024-12-15 14:36 | disposition home or self-care (01) ==
PROVIDERS: PCP Family Medicine; Visit Provider Physician Assistant
DX: D49.89 Neoplasm of unspecified behavior of other specified sites (principal); K76.0 Fatty (change of) liver, not elsewhere classified
CPT/HCPCS: 71250

== ENCOUNTER 2024-12-20 15:15 | Outpatient (CLI) | payer OTHER, SELFPAY ==
--- NOTE | ~2024-12-20 | XR_ITS ---
Exam: Abdomen 1V HISTORY: hx of kidney stones COMPARISON: 05/24/2024 TECHNIQUE: Supine images of the abdomen FINDINGS: Bowel gas pattern is non-obstructive. There is no free air or deep sulci. No pathologic calcifications are seen. Lung bases are unremarkable. Bones and soft tissues are unremarkable. Clips within the right upper quadrant of the IMPRESSION: Nonspecific, nonobstructive bowel gas pattern. No renal calculi are noted. Reviewed, dictated and finalized at location A.
--- OUTSIDE RECORDS SUMMARY | 2024-12-20 15:18 | XMS_ITS | Clinical Summary ---
Author Organization [facility] Address [address] [place] [address] Phone Care Team Providers Care Residential Real Estate Appraiser Name Role Phone Unavailable Primary Care Provider [...] daily. Active fluticasone propionate (FLONASE) 50 mcg/spray [place], Suspension nasal inhaler Administer 1 [place] in each nostril daily. 3 Active omeprazole [...] history exists INFLUENZA VACCINE (#1) 2024 Insurance [place] [id number] [place] [address] [employer] Advance Directives For more information, please contact: [phone] * Full Code (Latest Code Status on File) Date Activated Date Inactivated Comments 01/08/2023 5:32 PM 01/10/2023 3:36 PM * Full Code Date Activated Date Inactivated Comments 01/08/2023 7:32 AM 01/08/2023 5:32 PM * Full Code Date Activated Date Inactivated Comments 01/08/2023 5:57 AM 01/08/2023 7:32 AM
--- OUTSIDE RECORDS SUMMARY | 2024-12-20 15:19 | XMS_ITS | Clinical Summary ---
Author Organization [facility] Address [address] [place] [address] Care Team Providers Care Telecommunications Administrator Name Role Phone Oswaldo Mcadams MD Unavailable [phone] Natalie Vernon MD Primary Care Provider + Nathan Bai Unavailable [phone] Allergies Active Allergy Reactions Criticality Noted Date [...] patient was located at work in the [facility]. The patient visit started at 2:05 p.m. and ended at 2:46 p.m.. The patient has been informed that the visit may not be secure and acknowledged the information. I have explained the option of participating in a telephone or video visit during the [facility] [place] [address] emergency to the patient. After being given [...] the [facility] emergency to the patient. After being given an opportunity to ask questions about and discuss this type of visit, the patient verbally consented to proceeding with the telephone/video visit. The patient understands that this service replaces an office visit and they may be billed and/or responsible for any applicable copayments. @[email or web address]@ @CO@ Assessment & Plan (12/09/2021 9:31 AM CDT): [...] patient was located at work in the [facility]. The patient visit started at 8:52 a.m. and ended at 9:32 a.m.. The patient has been informed that the visit may not be secure and acknowledged the information. I have explained the option of participating in a telephone or video visit during the [facility]- public [facility] emergency to the patient. After being [...] and/or responsible for any applicable copayments. @[email or web address]@ @CO@ Breast pain, left 05/17/2018 History of left [...] on file Legal Sex Female 2:04 AM BAKERY DECORATOR Gender Identity Female 12/08/2021 8:49 PM CDT [...] Comments Blood Pressure 116/76 06/14/2024 3:25 PM BAKERY DECORATOR Pulse 85 03/02/2024 1:47 PM CDT Temperature 36.3 C (97.4 F) 07/16/2023 10:44 AM BAKERY DECORATOR Respiratory Rate 18 03/02/2024 1:47 PM CDT Oxygen Saturation 96% 03/02/2024 1:47 PM CDT Inhaled Oxygen Concentration - - Weight 91.2 kg (201 lb) 06/14/2024 3:25 PM BAKERY DECORATOR Height 167.6 cm (5' 6 ) 03/02/2024 [...] Completed 06/22/2023 Medical Devices Implanted Type Area Production Weigher Device Identifier Shelf Expiration Date Model / Serial / Lot [employer] Manuel 4.8fr 26cm Taper Tip Low Profile Braid Suture Temporary Pigtail [id number] - [id number] Implanted:Qty: 1 on 04/25/2023 by Jarrett Walker MD at [facility] Stent Right: Ureter [employer] Manuel 12/29/2025 [id number] / / [id number] Procedures Procedure Name Priority Date/Time Associated Diagnosis Comments DIAGNOSTIC MAMMOGRAM BILATERAL W GABRIELE Schedule Routine, Read Routine (OP Routine) 10/06/2023 2:30 PM BAKERY DECORATOR Personal history of other specified conditions Other specified postprocedural states COLONOSCOPY Routine 07/16/2023 2:44 PM BAKERY DECORATOR HEPATITIS C ANTIBODY Routine 06/22/2023 12:41 PM BAKERY DECORATOR from Last 3 Months or Most Recently Relevant to Health Maintenance Results * Diagnostic Mammogram Bilateral W Gabriele (10/06/2023 2:30 PM BAKERY DECORATOR) Anatomical Region Laterality Modality Breast Bilateral Mammography 10/07/2023 7:42 AM BAKERY DECORATOR Impressions 10/07/2023 7:42 AM BAKERY DECORATOR 1. No mammographic finding of malignancy in [...] YIN BAUMAN M.D. Narrative 10/07/2023 7:42 AM BAKERY DECORATOR EXAM: DIAGNOSTIC MAMMOGRAM BILATERAL W GABRIELE, US [...] al Result * Colonoscopy (07/16/2023 2:44 PM BAKERY DECORATOR) Anatomical Region Laterality Modality Other [facility] Provider ENDOSCOPY PROCEDURES Addie l Result * Hepatitis C antibody Blood (06/22/2023 12:41 PM BAKERY DECORATOR) Hep C Ab Nonreactive Nonreactive [facility] Comment: Interpretive Data Nonreactive: Antibodies to [...] on 2019. Blood 06/22/2023 12:4 1 PM BAKERY DECORATOR 06/22/2023 4:15 PM BAKERY DECORATOR us Molly Ordoñez MD LAB MICROBIOLOGY - GENERAL ORDER DONAL Final Result [facility] Arie Ordoñez Bryan Department [place] [address] from Last 3 Months or Most Recently Relevant to Health Maintenance Insurance [facility] CHOICE PLUS [facility] CHOICE PLUS [facility] CHOICE PLUS [facility] CHOICE PLUS [facility] CHOICE PLUS Advance Directives For more information, please contact: [phone] * Full Code (Latest Code Status on File) Date Activated Date Inactivated Comments 04/25/2023 4:35 AM 04/25/2023 7:53 PM Care Teams Telecommunications Administrator Relationship Specialty Start Date End Date Natalie Vernon MD PCP - General Family Medicine 06/05/22 Oswaldo Mcadams MD Obstetrics and Gynecology 05/14/17 Nathan Bai PA [address] [place] [address] Referring Physician Physician Hotel Clerk 01/26/23
--- OUTSIDE RECORDS SUMMARY | 2024-12-20 15:19 | XMS_ITS ---
Author Organization [facility] les Address [address] [facility] [address] [place] [address] Care Team Providers Care Psychiatric Social Worker Name Role Phone Natalie Vernon MD Primary Care Provider Unav ailable Molly Huerta Unavailable [phone] Allergies Allergen (clinical drug ingredient) Drug/Non Drug Allergy documented on EMR Reaction Allergy Type Onset Date Status EPINEPHrine Unknown Drug Allergy 05/19/2006 Acti ve lidocaine Lidocaine Unknown Drug Allergy 05/19/2006 Active codeine Codeine Unknown Drug Allergy 05/19/2006 Active Results Component Value Reference Range Notes Sed Rate Reviewed date:05/12/2024 12:48:07 PM Interpretation: Performing Lab:[facility] , [address] [place] [address]. [facility] [address] Notes/Report: ESR 19 1-30 mm/hr Rheumatoid Factor Reviewed date:05/12/2024 12:48:07 PM Interpretation: Performing Lab:[facility] , [address] [place] [address]. [facility] [address] Notes/Report: RF, Oj <10 <=15 IUnits/mL Creatine Kinase Reviewed date:05/12/2024 12:48:06 PM Interpretation: Performing Lab:[facility] , [address] [place] [address]. [facility] [address] Notes/Report: Total CK 81 30-200 Units/L Comprehensive metabolic pane l (CMP) Reviewed date:05/12/2024 12:48:06 PM Interpretation: Performing Lab:[facility] , [address] [place] [address]. [facility] [address] Notes/Report: Sodium 138 135-145 mmol/L Plasma Potassium [...] C4 Reviewed date:05/12/2024 12:48:06 PM Interpretation: Performing Lab:[facility] , [address] [place] [address]. [place] [address] Notes/Report: Complement, C4 34 10-40 mg/dL Complement C3 Reviewed date:05/12/2024 12:48:06 PM Interpretation: Performing Lab:[facility] , [address] [place] [address]. [place] [address] Notes/Report: Complement, C3 176 90-180 mg/dL CBC w auto diff Reviewed date:05/12/2024 12:48:06 PM Interpretation: Performing Lab:[facility] , [address] [place] [address]. [place] [address] Notes/Report: WBC 11.2 3.8-9.9 K/cumm Hgb 12.4 11.9-15.5 g/dL Hct 38.0 35.6-45.5 % Platelet Ct 302 150-400 K/cumm MPV 10.7 9.1-12.3 fL RBC 3.99 3.90-5.20 M/cumm MCV 95.2 81.3-96.4 fL MCH 31.1 27.1-33.3 pg MCHC 32.6 32.3-35.7 g/dL RDW CV 12.3 11.1-14.9 % RDW SD 42.6 35.7-48.1 fL NRBC Abs Auto 0.00 0.00-0.01 K/cumm C Reactive Protein Reviewed date:05/12/2024 12:48:06 PM Interpretation: Performing Lab:[facility] , [facility]. [facility] [address] Notes/Report: C-Reactive Protein 12.5 <=10.0 mg/L Anti-CCP (Cyclic Citrullinat ed Peptide Ab) Reviewed date:05/15/2024 07:58:49 PM Interpretation: Performing Lab:[facility] , [address] [place] [address]. [facility] [address] Notes/Report: CCP Ab <0.5 <=2.9 units/mL Interpretive data Negative: <3 units/mL Positive: > or equal to 3 units/mL Current interpretive data was last revised on 2016. REASON FOR VISIT yd/4 month follow up/flc, CTD, PCP Natalie Vernon MD [address] [place] [address] Medications Medication SIG (Take, Route, Frequency, Duration) [...] Status W/U Status Risk Notes Problem Paresthesia (92728460) Paresthesia (R20.2) Active confirmed Problem Undifferentiated connective tissue disease (202724949) Undifferentiated connective tissue disease (M35.9) Active confirmed Problem CRP elevated (R79.82) Active confirmed Vital Signs Temperature 97.7 degrees Fahrenheit 05/11/20 24 Blood pressure systolic 124 mm Hg 05/11/20 24 Blood pressure diastolic 74 mm Hg 024 Heart Rate 84 /min 05/11/2024 Height 66 in 05/11/2024 Weight 195.8 lbs 05/11/2024 BMI 31.6 kg/m2 05/11/2024 Oximetry 95 % 05/11/2024 Height-cm 167.64 cm 05/11/2024 Weight-kg 88.8 kg 05/11/2024 Encounters Encounter Location Date Provider Diagnosis [facility] [address] [facility] [address] [place] [address] 05/11/2024 Molly Du Paresthesia R20.2 ; Undifferentiated [...] Follow Up: 4 Months, Reason: Provider Name:Molly Tiago, 02/09 10:00:00 AM, [address] [facility] [address], [place], [address], Progress Notes * Natalie MEADOWS LDOB: (53 yo F)Acc No.[id number]:05/11/2024 Progress Notes Patient: Natalie GONZALEZ [place] Provider: Real HUERTA MD :1970 A ge:53 Y S ex:Female Date:05/11/2024 Address:[address] [place] [address] [place] [address] Pcp:Natalie Vernon MD Subjective: * Chief Complaints: * y d/4 month follow up/flc, CTDPCP Natalie Vernon MD [address] [facility] [address] [place] [address] * HPI: G eneral Follow up: receiving PT, helping some, neck and R shioulder and feet bother her today, Gabapentin has helped with symptoms Prescribed for cough). had nerve conduction study x 2 She also has IBS type of symptoms and sees folding machine tender. 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, helping with cough (hx of thymoma removal) hx of kidney stones, sees urologist ROS: +recent history of mouth ulcers, +dry eyes and dry mouth, +facial redness, has one spot on scalp, no photosensitivity, no Raynaud's, +some hair thinning 10/11/2023, cardiolipin IgM (-), CRP21.7, UA: 2+blood, RBC 0-2, WBC 0-5, 4+ bacteria, +mucus 07/10/2023, lupus anticoagulant (-), [id number] (-), ACL IgM 13 (<13), C3 normal, C4 39 (12-38), SCL 70 (-), ESR normal, CRP 14, UA WBC >30, occult blood 1+, RBC 0-2, WBC esterase 2+ 06/22/23, RF/CCP (-), NAN 1:640 (speckled), LAKIA (-), DNA (-), SSA/SSB (-), ESR normal, CRP 42.5, CK normal, HBV/HCV (-), WBC 11.3, Hb 12.7, [id number], Cr 0.7, AST NORMAL, ALT 50. * ROS: G eneral / Constitutional: Patient denies f talat, chills. P atient complains of?fatigue. M usculoskeletal: Patient complains of s ee [...] Huerta on 05/12/2024 at 12:48 PM CDT ?LAB: Creatine Kinase* Value Reference Range C K Totl 81 30-200 - Units/L * This lab was reviewed by Elle Huerta on 05/12/2024 at 12:48 PM CDT ?LAB: Comprehensive metabolic panel (CMP)* Value Reference Range [...] Huerta on 05/12/2024 at 12:48 PM CDT ?LAB: Rheumatoid Factor* Value Reference Range R F Qn <10 <=15 - IUnits/mL * This lab was reviewed by Elle Huerta on 05/12/2024 at 12:48 PM CDT ?LAB: CBC w auto diff* Value Reference Range [...] Huerta on 05/12/2024 at 12:48 PM CDT ?LAB: Anti-CCP (Cyclic Citrullinated Peptide Ab)* Value Reference Range C CP Ab <0.5 <=2.9 - units/mL * This lab was reviewed by Elle Huerta on 05/15/2024 at 19:58 PM CDT ?LAB: NAN reflex titer pattern LAKIA + dsDNA ?LAB: Sed Rate* Value Reference Range E SR 19 1-30 - mm/hr * This lab was reviewed by Elle Huerta on 05/12/2024 at 12:48 PM CDT ?LAB: Complement C3* Value Reference Range C omp C3 176 90-180 - mg/dL * This lab was reviewed by Elle Huerta on 05/12/2024 at 12:48 PM CDT ?LAB: Complement C4* Value Reference Range C omp C4 34 10-40 - mg/dL * This lab was reviewed by Elle Huerta on 05/12/2024 at 12:48 PM CDT * Procedure Codes: * Follow Up: 4 Months * Billing Information: * Visit Code: 29310 Office Visit, Est Pt., Level 4. * Procedure Codes: * Sign off status: Completed true * Provider: Real HUERTA MD Date: Generated for Mario wade/Enrique/eTransmitting on: 0 12/20/2024 03:18 PM CDT History and Physical Notes * HPI (History of Present Illness) Category Sub-Category Detail Notes Category Not es General Follow up receiving PT, helping some, neck and R shioulder and feet bother her today, Gabapentin has helped with symptoms Prescribed for cough). had nerve conduction study x 2 She also has IBS type of symptoms and sees folding machine tender. 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, helping with cough (hx of thymoma removal) hx of kidney stones, sees urologist ROS: +recent history of mouth ulcers, +dry eyes and dry mouth, +facial redness, has one spot on scalp, no photosensitivity, no Raynaud's, +some hair thinning 10/11/2023, cardiolipin IgM (-), CRP21.7, UA: 2+blood, RBC 0-2, WBC 0-5, 4+ bacteria, +mucus 07/10/2023, lupus anticoagulant (-), [id number] (-), ACL IgM 13 (<13), C3 normal, C4 39 (12-38), SCL 70 (-), ESR normal, CRP 14, UA WBC >30, occult blood 1+, RBC 0-2, WBC esterase 2+ 06/22/23, RF/CCP (-), NAN 1:640 (speckled), LAKIA (-), DNA (-), SSA/SSB (-), ESR normal, CRP 42.5, CK normal, HBV/HCV (-), WBC 11.3, Hb 12.7, [id number], Cr 0.7, AST NORMAL, ALT 50 Examination Category Sub-Category Detail Notes Category Not es Rheumatology mild pain in R shoulder with abduction, Neurology Speech: normal Psychiatry Affect / mood: appropriate General Examination General appearance: alert, w ell-nourished and in no acute distress Head: normocephalic, atrau matic Eyes: normal Lungs: respiratory effort n ormal Skin: no rash
--- OUTSIDE RECORDS SUMMARY | 2024-12-20 15:19 | XMS_ITS | Referral Summary ---
Author Organization [facility] Address [address] [place] [address] Care Team Providers Care Generator Worker Name Role Phone Oswaldo Mcadams MD Unavailable [phone] Natalie Vernon MD Primary Care Provider + Nathan Bai Unavailable [phone] Allergies Active Allergy Reactions Criticality Noted Date [...] patient was located at work in the [facility]. The patient visit started at 2:05 p.m. and ended at 2:46 p.m.. The patient has been informed that the visit may not be secure and acknowledged the information. I have explained the option of participating in a telephone or video visit during the [facility]-[address] [place] [address] emergency to the patient. After being given [...] a telephone or video visit during the [facility] emergency to the patient. After being given an opportunity to ask questions about and discuss this type of visit, the patient verbally consented to proceeding with the telephone/video visit. The patient understands that this service replaces an office visit and they may be billed and/or responsible for any applicable copayments. @[email or web address]@ @SC@ Assessment & Plan (12/09/2021 9:31 AM CDT): [...] patient was located at work in the [facility]. The patient visit started at 8:52 a.m. and ended at 9:32 a.m.. The patient has been informed that the visit may not be secure and acknowledged the information. I have explained the option of participating in a telephone or video visit during the [facility] emergency to the patient. After being given [...] and/or responsible for any applicable copayments. @SIGENC2@ @SC@ Breast pain, left 05/17/2018 History of left [...] on file Legal Sex Female 2:04 AM PRINTED CIRCUIT BOARD PREASSEMBLER Gender Identity Female 12/08/2021 8:49 PM CDT Sexual Orientation Straight 12/08/2021 8: 49 PM CDT Last Filed Vital Signs Vital Sign Reading Time Taken Comments Blood Pressure 116/76 06/14/2024 3:25 PM PRINTED CIRCUIT BOARD PREASSEMBLER Pulse 85 03/02/2024 1:47 PM CDT Temperature 36.3 C (97.4 F) 07/16/2023 10:44 AM PRINTED CIRCUIT BOARD PREASSEMBLER Respiratory Rate 18 03/02/2024 1:47 PM CDT Oxygen Saturation 96% 03/02/2024 1:47 PM CDT Inhaled Oxygen Concentration - - Weight 91.2 kg (201 lb) 06/14/2024 3:25 PM PRINTED CIRCUIT BOARD PREASSEMBLER Height 167.6 cm (5' 6 ) 03/02/2024 1:47 PM CDT Body Mass Index 32.44 03/02/2024 1:47 PM CDT Plan of Treatment Not on file Medical Devices Implanted Type Area Kitman Device Identifier Shelf Expiration Date Model / Serial / Lot [employer] Manuel 4.8fr 26cm Taper Tip Low Profile Braid Suture Temporary Pigtail [id number] - [id number] Implanted:Qty: 1 on 04/25/2023 by Jarrett Walker MD at [facility] Stent Right: Ureter [employer] Manuel 12/29/2025 [id number] / / [id number] Procedures Procedure Name Priority Date/Time Associated Diagnosis Comments DIAGNOSTIC MAMMOGRAM BILATERAL W GABRIELE Schedule Routine, Read Routine (OP Routine) 10/06/2023 2:30 PM PRINTED CIRCUIT BOARD PREASSEMBLER Personal history of other specified conditions Other specified postprocedural states COLONOSCOPY Routine 07/16/2023 2:44 PM PRINTED CIRCUIT BOARD PREASSEMBLER HEPATITIS C ANTIBODY Routine 06/22/2023 12:41 PM PRINTED CIRCUIT BOARD PREASSEMBLER from Last 3 Months or Most Recently Relevant to Health Maintenance Results * Diagnostic Mammogram Bilateral W Gabriele (10/06/2023 2:30 PM PRINTED CIRCUIT BOARD PREASSEMBLER) Anatomical Region Laterality Modality Breast Bilateral Mammography 10/07/2023 7:42 AM PRINTED CIRCUIT BOARD PREASSEMBLER Impressions 10/07/2023 7:42 AM PRINTED CIRCUIT BOARD PREASSEMBLER 1. No mammographic finding of malignancy in [...] YIN BAUMAN M.D. Narrative 10/07/2023 7:42 AM PRINTED CIRCUIT BOARD PREASSEMBLER EXAM: DIAGNOSTIC MAMMOGRAM BILATERAL W GABRIELE, US [...] al Result * Colonoscopy (07/16/2023 2:44 PM PRINTED CIRCUIT BOARD PREASSEMBLER) Anatomical Region Laterality Modality Other us Historical Provider MD ENDOSCOPY PROCEDURES Addie l Result * Hepatitis C antibody Blood (06/22/2023 12:41 PM PRINTED CIRCUIT BOARD PREASSEMBLER) Hep C Ab Nonreactive Nonreactive [facility] Comment: Interpretive Data Nonreactive: [...] on 2019. Blood 06/22/2023 12:4 1 PM PRINTED CIRCUIT BOARD PREASSEMBLER 06/22/2023 4:15 PM PRINTED CIRCUIT BOARD PREASSEMBLER Molly Ordoñez MD LAB MICROBIOLOGY - GENERAL ORDER DONAL Final Result [facility] [address] Department [place] [address] from Last 3 Months or Most Recently Relevant to Health Maintenance Insurance [facility] CHOICE PLUS [facility] HMO/PPO Address: [place] [address] [facility] CHOICE [facility] HMO/PPO Address: [place] [address] [facility] CHOICE [facility]US [facility] HMO/PPO Address: [address] [place] [address] [facility] CHOICE [facility] HMO/PPO Address: [address] [place] [address] [facility] CHOICE PLUS [facility] HMO/PPO Address: [address] [place] [address] Advance Directives For more information, please contact: [phone] * Full Code (Latest Code Status on File) Date Activated Date Inactivated Comments 04/25/2023 4:35 AM 04/25/2023 7:53 PM Care Teams Generator Worker Relationship Specialty Start Date End Date Natalie Vernon MD PCP - General Family Medicine 06/05/22 Oswaldo Mcadams MD Obstetrics and Gynecology 05/14/17 Nathan Bai PA [address] [place] [address] Referring Physician Physician Artist Scientific 01/26/23
--- OUTSIDE RECORDS SUMMARY | 2024-12-20 15:19 | XMS_ITS | Patient Health Record ---
Author Organization [facility] les Address [address] [place] [address] Care Team Providers Care Founder & Ceo Name Role Phone Saulo CALDERON, Natlaie Primary Care Provider Unav Molly Alexandre Unavailable [phone] Allergies Allergen (clinical drug ingredient) Drug/Non Drug Allergy documented on EMR Reaction Allergy Type Onset Date Status EPINEPHrine Unknown Drug Allergy 05/19/2006 Acti ve lidocaine Lidocaine Unknown Drug Allergy 05/19/2006 Active codeine Codeine Unknown Drug Allergy 05/19/2006 Active Results Component Value Reference Range Notes Anti-CCP (Cyclic Citrullinat ed Peptide Ab) Reviewed date:05/15/2024 07:58:49 PM Interpretation: Performing Lab:[facility] , [facility]. [place] [address] Notes/Report: CCP Ab <0.5 <=2.9 units/mL Interpretive data Negative: <3 units/mL Positive: > or equal to 3 units/mL Current interpretive data was last revised on 2016. C Reactive Protein Reviewed date:05/12/2024 12:48:06 PM Interpretation: Performing Lab:[facility] , [address] [facility] [place] [address] Notes/Report: C-Reactive Protein 12.5 <=10.0 mg/L CBC w auto diff Reviewed date:05/12/2024 12:48:06 PM Interpretation: Performing Lab:[facility] , [address] [place] [address] Notes/Report: WBC 11.2 3.8-9.9 K/cumm Hgb 12.4 11.9-15.5 g/dL Hct 38.0 35.6-45.5 % Platelet Ct 302 150-400 K/cumm MPV 10.7 9.1-12.3 fL RBC 3.99 3.90-5.20 M/cumm MCV 95.2 81.3-96.4 fL MCH 31.1 27.1-33.3 pg MCHC 32.6 32.3-35.7 g/dL RDW CV 12.3 11.1-14.9 % RDW SD 42.6 35.7-48.1 fL NRBC Abs Auto 0.00 0.00-0.01 K/cumm Complement C3 Reviewed date:05/12/2024 12:48:06 PM Interpretation: Performing Lab:[facility] , [address] [place] [address]. [facility] [address] Notes/Report: Complement, C3 176 90-180 mg/dL Complement C4 Reviewed date:05/12/2024 12:48:06 PM Interpretation: Performing Lab:[facility] , [address] [place] [address]. [facility] [address] Notes/Report: Complement, C4 34 10-40 mg/dL Comprehensive metabolic pane l (CMP) Reviewed date:05/12/2024 12:48:06 PM Interpretation: Performing Lab:[facility] , [address] [place] [address]. [facility] [address] Notes/Report: Sodium 138 135-145 mmol/L Plasma Potassium [...] Kinase Reviewed date:05/12/2024 12:48:06 PM Interpretation: Performing Lab:[facility] , [facility] [facility]. [place] [address] Notes/Report: Total CK 81 30-200 Units/L Rheumatoid Factor Reviewed date:05/12/2024 12:48:07 PM Interpretation: Performing Lab:[facility] , [facility] [address]. [place] [address] Notes/Report: RF, Oj <10 <=15 IUnits/mL Sed Rate Reviewed date:05/12/2024 12:48:07 PM Interpretation: Performing Lab:[facility] , [facility] [place] [address] Notes/Report: ESR 19 1-30 mm/hr NAN Ql reflex to Qn Reviewed date:05/15/2024 07:58:49 PM Interpretation: Performing Lab:[facility] , [facility] [place] [address] Notes/Report: NAN, Oj 1:320 Testing performed by: [facility], [address] [place]., [address] Differential Automated Reviewed date:05/12/2024 12:48:06 PM Interpretation: Performing Lab:[facility] , [facility] [place] [address] Notes/Report: Neut Abs 7.1 1.5-6.5 K/cumm ImmGran Abs 0.0 0.0-0.1 K/cumm Lymphocyte Abs 3.3 0.8-3.3 K/cumm [place] Abs 0.6 0.2-0.8 K/cumm Eos Abs 0.2 [...] Interpretive Data was last revised on 2017. [place] Pct 5.4 Interpretive Data Percent cell count [...] Interpretive Data was last revised on 2017. eGFR Reviewed date:05/12/2024 12:48:06 PM Interpretation: Performing Lab:[facility] , [address] [place] [address]. [place] [id number] Notes/Report: eGFR >90 >=60 mL/min/1.73 m2 Interpretive [...] Current interpretive data was last reviewed 2021. [employer]A Micro (All Sites) Reviewed date:05/12/2024 12:48:06 PM Interpretation: Performing Lab:[facility] , [address] [facility]. [place] [address] Notes/Report: WBC, Ur 0-5 0-5 /HPF RBC, Ur 3-5 0-2 /HPF Epithl Squam, Ur 1-5 0-5 /HPF Mucous Ur Present Urinalysis reflex microscopi c exam Reviewed date:05/12/2024 12:48:06 PM Interpretation: Performing Lab:[facility] , [facility] [place] [address] Notes/Report: Color, Ur Yellow Yellow Clarity, Ur [...] tendency for uric acid stone formation. Source: [employer] Current Interpretive Data was last revised on 2017 Protein, Ur Ql Trace Negative Glucose, Ur Ql Negative Negative Ketones, Ur Negative Negative Bilirubin, Ur Negative Negative Blood, Ur 1+ Negative Urobilinogen, Ur <2.0 <2.0 mg/dL Nitrite, Ur Negative Negative Leukocyte Esterase, Ur Negative Negative Reason For Referral No Information Medications Medication [...] Problem Status W/U Status Risk Notes Problem [id number] Fibromyalgia (M79.7) Active confirmed Problem Undifferentiated connective tissue disease (490872264) Undifferentiated connective tissue disease (M35.9) Active confirmed Problem Paresthesia (66692247) Paresthesia (R20.2) Active confirmed Problem CRP elevated (R79.82) Active [...] 11/17/2024 Encounters Encounter Location Date Provider Diagnosis [facility] [address] [facility] [address] [place] [address] 01/11/2024 Molly Du Paresthesia R20.2 ; Undifferentiated connective tissue disease M35.9 ; NAN positive R76.8 ; CRP elevated R79.82 ; Pain in right shoulder M25.511 and Pain in left shoulder M25.512 [facility] [address] [facility] [address] [place] [address] 05/11/2024 Molly Du Paresthesia R20.2 ; Undifferentiated connective tissue disease M35.9 ; NNA positive R76.8 and CRP elevated R79.82 [facility] [address] [place] [address] 11/17/2024 Molly Du NAN positive R76.8 ; Undifferentiated connective tissue disease M35.9 ; CRP elevated R79.82 and Fibromyalgia M79.7 [facility] [address] [place] [address] 05/22/2024 Molly Du Assessments Encounter Date Diagnosis [...] Name:Molly Ordoñez, [birth year] 10:00:00 AM, [address] [facility] [address], [place], [address], Insurance Providers Payer Name Payer Address Payer Phone Subscriber Number Group Number Insured Name Patient Relationship to Insured Coverage Start Date Coverage End Date [facility] [employer] [address] [address] [place] [address] [id number] Natalie Harding Self - patient is the insured Medical (General) History Medical History History ICD Code Skin Cancer, Date of Onset: 05/19/2006 ; anxiety asthma endometriosis kidney stones thymoma SIBO endometriosis Surgical History Surgery Date(Month/Year) thymoma removal lithotripsy bowel resection (endometriosis)
--- OUTSIDE RECORDS SUMMARY | 2024-12-20 15:19 | XMS_ITS | Encounter Summary ---
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
--- OUTSIDE RECORDS SUMMARY | 2024-12-20 15:19 | XMS_ITS ---
Author Organization [facility] les Address [address] [facility] [address] [place] [address] Care Team Providers Care Feed Adviser Name Role Phone Natalie Vernon MD Primary Care Provider Unav ailable Molly Ordoñez Unavailable [phone] REASON FOR VISIT labs Encounters Encounter Location Date Provider Diagnosis [facility] [address] [facility] [facility] [facility] [address] [place] [address] 05/22/2024 Molly Ordoñez Plan Of Treatment Next Appt Details Provider Name:Molly Tiago, 02/09 10:00:00 AM, [address] [facility] [address], [place], [address], Progress Notes * Natalie MEADOWS LDOB: (53 yo F)Acc No.[id number]:05/22/2024 Patient: Dell Natalie NEVAREZ :1970 A ge:53 Y S ex:Female Address:[address], [place], [address] * true * Date: Generated for Printi ng/Faxing/eTransmitting on: 0 12/20/2024 03:18 PM CDT
--- OUTSIDE RECORDS SUMMARY | 2024-12-20 15:19 | XMS_ITS | Encounter Summary ---
Author Organization [facility] Address [address] [place] [address] Care Team Providers Care Strategic Buyer Name Role Phone Natalie Vernon MD Primary Care Provider [phone] [phone] Encounter Details Date Type Department Care Team (Late st Contact Info) Description 02/20/2020 Lab Requisition [facility] DermPath Lab [address] [facility], [place] [id number] Lali Wagner DO [address] [facility] 3 [place] [address] Social History Tobacco Use Types Packs/Day Years [...] AM CDT) Case Report Dermatopathology Report Case: [id number] Authorizing Provider: Lali Wagner DO Collected: 02/19/2020 12:00 AM Ordering Location: [facility] Care DermPath Lab Received: 02/20/2020 06:33 AM Pathologist: Bernice Aguilar MD Specimen: Skin, right lateral LE 0 7:49 PM CDT DERMATOPATHOLOGY LABORATORY Final Diagnosis Specimen A. SKIN, right lateral LE: SEBORRHEIC KERATOSIS, MACULAR (L82.1) 0 7:49 PM CDT DERMATOPATHOLOGY LABORATORY at 1949 CDT Clinical History ISK R/O NMSC. 0 7:49 PM CDT DERMATOPATHOLOGY LABORATORY Gross Description Specimen A: Received is one formalin filled container labeled with the patient's name and designated right lateral LE. The specimen consists of a shave measuring [id number]. Jar 0. 0 7:49 PM CDT DERMATOPATHOLOGY [...] characteristic determined by the Dermatopathology Laboratory at [facility], directed by Dr. Johanny Tapia. These tests need not be, and therefore are not, approved by the [place] Food and Drug Administration. The tests are used for clinical purposes. Billing Codes Specimen Charges Stain Charges 32249 1 0 7:49 PM CDT DERMATOPATHOLOGY LABORATORY Embedded Images 0 7:49 PM CDT DERMATOPATHOLOGY LABORATORY Pathology/Cytolog y TISSUE SPECIMEN FROM SKIN / Unknown 02/19/2020 02/20/2020 6:33 AM CDT us Lali Wagner DO LAB - PATHOLOGY/CYTOLOGY ORDERABLES Final Result DERMATOPATHOLOGY LABORATORY [facility] - Department of Dermatology Material [employer] Manager [place] [address], [facility] [phone] documented in this encounter Visit Diagnoses Not on filedocumented in this encounter Care Teams Strategic Buyer Relationship Specialty Start Date End Date Natalie Vernon MD [address] [place] [phone] PCP - General Family Medicine 02/17/23 documented as of this encounter
--- OUTSIDE RECORDS SUMMARY | 2024-12-20 15:19 | XMS_ITS | Clinical Summary ---
Author Organization [facility] Address [address] [place] [address] Care Team Providers Care Hand Sizer Name Role Phone Natalie Vernon MD Primary Care Provider [phone] [phone] Source Comments [facility],non-owned Affiliates and Associated Physician Practices is amultiple site organization consisting of ambulatory clinics and hospital sitesin [place], [place], [place] and [place]. This disclosure is being madepursuant to the Care Everywhere program and may not contain all information available regarding this patient. Last updated 18.[facility] Allergies Active Allergy Reactions Criticality Noted Date [...] fluticasone propionate (Flonase) 50 MCG/ACT nasal spray [place] 1 (one) spray into the nose once [...] daily Active Cholecalciferol (vitamin D3) 1.25 MG (90546 UT) capsule Take 1 (one) capsule by [...] patient's age to complete this topic Insurance [facility] Care Teams Hand Sizer Relationship Specialty Start Date End Date Natalie Vernon MD [address] [place], [id number] PCP - General Family Medicine 02/17/23
--- OUTSIDE RECORDS SUMMARY | 2024-12-20 15:19 | XMS_ITS ---
Author Organization [facility] les Address [address] [facility] [address] [place] [address] Care Team Providers Care Honeycomb Blanket Maker Name Role Phone Saulo CALDERON, Natalie Primary Care Provider Unav ailable Molly Huerta Unavailable [phone] Allergies Allergen (clinical drug ingredient) Drug/Non Drug Allergy documented on EMR Reaction Allergy Type Onset Date Status EPINEPHrine Unknown Drug Allergy 05/19/2006 Acti ve lidocaine Lidocaine Unknown Drug Allergy 05/19/2006 Active codeine Codeine Unknown Drug Allergy 05/19/2006 Active REASON FOR VISIT yd/6 month follow up/flc, CTD, PCP Natalie Vernon MD [address] [place] [address] Medications Medication SIG (Take, Route, Frequency, Duration) [...] Problem Status W/U Status Risk Notes Problem 250239422 Fibromyalgia (M79.7) Active confirmed Vital Signs Temperature 98.5 degrees Fahrenheit 11/18/19 25 Blood pressure systolic 120 mm Hg 11/18/19 25 Blood pressure diastolic 78 mm Hg 025 Heart Rate 90 /min 11/17/2024 Height 66 in 11/17/2024 Weight 199.1 lbs 11/17/2024 BMI 32.13 kg/m2 11/17/2024 Oximetry 95 % 11/17/2024 Height-cm 167.64 cm 11/17/2024 Weight-kg 90.31 kg 11/17/2024 Encounters Encounter Location Date Provider Diagnosis [facility] [address] [facility] [address] [place] [address] 11/17/2024 Molly Huerta NAN positive R76.8 ; [...] Name:Molly Tiago, 02/09 10:00:00 AM, [address] [facility] [address], [place], [address], Progress Notes * SOWNatalie WILKERSON LDOB: (53 yo F)Acc No.[id number]:11/17/2024 Progress Notes Patient: Natalie GONZALEZ Provider: Real HUERTA MD :1970 A ge:53 Y S ex:Female Date:11/17/2024 Address:[address] [place] [address] [id number] Pcp:Natalie Vernon MD Subjective: * Chief Complaints: * Y d/6 month follow up/flcCTDPCP Natalie Vernon MD [address] [place], [place] [id number] * HPI: G eneral Follow up: feet, legs and knee ache, whole body aches sometimes, am stiffness: 30 min, on gabapentin (rescribed for cough), helping a little with pain she does not want plaquenil She also has IBS type of symptoms and sees pool servicer. 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, helping coremaking supervisor prescribed gabapentin, helping with cough (hx of [...] 4+ bacteria, +mucus 07/10/2023, lupus anticoagulant (-), [id number] (-), ACL IgM 13 (<13), C3 normal, C4 39 (12-38), SCL 70 (-), ESR normal, CRP 14, UA WBC >30, occult blood 1+, RBC 0-2, WBC esterase 2+ 06/22/23, RF/CCP (-), NAN 1:640 (speckled), LAKIA (-), DNA (-), SSA/SSB (-), ESR normal, CRP 42.5, CK normal, HBV/HCV (-), WBC 11.3, Hb 12.7, [id number], Cr 0.7, AST NORMAL, ALT 50. * [...] Months * Billing Information: * Visit Code: 86003 Office Visit, Est Pt., Level 4. * Procedure Codes: * Sign off status: Completed true * Provider: Real HUERTA MD Date: 11/17/2024 Generated for Mario wade/Enrique/Contrerasitting on: 0 12/20/2024 03:18 PM CDT History and Physical Notes * HPI (History of Present Illness) Category Sub-Category Detail Notes Category Not es General Follow up feet, legs and knee ache, whole body aches sometimes, am stiffness: 30 min, on gabapentin (rescribed for cough), helping a little with pain she does not want plaquenil She also has IBS type of symptoms and sees pool servicer. 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
== END 2024-12-20 15:16 | disposition home or self-care (01) ==
PROVIDERS: PCP Family Medicine; Visit Provider Nurse Practitioner Family
DX: Z87.442 Personal history of urinary calculi (principal)
CPT/HCPCS: 74018

== ENCOUNTER 2025-05-25 14:31 | Outpatient (CLI) | payer OTHER, SELFPAY ==
--- OUTSIDE RECORDS SUMMARY | 2025-05-25 14:38 | XMS_ITS | Patient Health Record ---
Author Organization [facility] Address [address] [place], [place] [address] Care Team Providers Care Monument Setter Name Role Phone JUANJOSE ROGERS Unavailable [phone] Willie Proctor Unavailable Unavailable Reason For Referral No Information Medications Medication SIG (Take, Route, Frequency, Duration) Notes Start Date End Date Status Medrol Dosepak ORAL Medrol DosepakOr iginal MedicationMedrol Dosepak *Reorder from [employer] for eRx and Interaction Alerts* 08/16/2014 Active Plan Of Treatment No Information Insurance Providers Payer Name Payer Address Payer Phone Subscriber Number Group Number Insured Name Patient Relationship to Insured Coverage Start Date Coverage End Date [facility] [address] [place] [phone] [id number] MENG OREILLY Self - patient is the insured
--- OUTSIDE RECORDS SUMMARY | 2025-05-25 14:38 | XMS_ITS | Clinical Summary ---
Author Organization [facility] Address [address] [place] [address] Care Team Providers Care Electronics Worker Name Role Phone Natalie Vernon MD Primary Care Provider [phone] [phone] Source Comments [facility],non-owned Affiliates and Associated Physician Practices is amultiple site organization consisting of ambulatory clinics and hospital sitesin [place], [place] and [place]. This disclosure is being madepursuant to the Care Everywhere program and may not contain all information available regarding this patient. Last updated 18.[facility] Allergies Active Allergy Reactions Criticality Noted Date [...] fluticasone propionate (Flonase) 50 MCG/ACT nasal spray [place] 1 (one) spray into the nose once [...] daily Active Cholecalciferol (vitamin D3) 1.25 MG (20336 UT) capsule Take 1 (one) capsule by [...] 9:26 AM CDT Height 167.6 cm (5' 6) 03/11/2023 9:26 AM CDT Body Mass Index [...] SCREENING 1970 LIPID TESTING 1970 MAMMOGRAM 1970 HIV SCREENING 1985 HEPATITIS C SCREENING 12/09/1988 DTAP/TDAP/TD VACCINES (1 - Tdap) 1989 HEPATITIS B VACCINE (1 of 3 - 19+ 3-dose series) 1989 PNEUMOCOCCAL VACCINE 50+ (1 of 1 - PCV) 2020 ZOSTER VACCINE (1 of 2) 2020 SCREENING FOR DIABETES 02/17/2023 DEPRESSION SCREENING 08/02/2024 COVID-19 VACCINE (4 - 2024-2 6 season) 2025 06/07/2022, 06/28/2021, 10/08/2020 INFLUENZA VACCINE (#1) 2025 HIB VACCINE Aged Out No longer [...] patient's age to complete this topic Insurance [facility] Care Teams Electronics Worker Relationship Specialty Start Date End Date Natalie Vernon MD [address] [place] [address] PCP - General Family Medicine 02/17/23
--- OUTSIDE RECORDS SUMMARY | 2025-05-25 14:38 | XMS_ITS | Encounter Summary ---
Author Organization [facility] Address [address] [place] [address] Care Team Providers Care Sas Sql Developer Name Role Phone Natalie Vernon MD Primary Care Provider [phone] [phone] Encounter Details Date Type Department Care Team (Late st Contact Info) Description 02/20/2020 Lab Requisition [facility] DermPath Lab [address] [facility] [place] [address] Lali Wagner DO [address] [facility] [address] [place] [address] Social History Tobacco Use Types Packs/Day Years [...] AM CDT) Case Report Dermatopathology Report Case: [id number] Authorizing Provider: Lali Wagner DO Collected: 02/19/2020 12:00 AM Ordering Location: [facility] Care DermPath Lab Received: 02/20/2020 06:33 [...] The specimen consists of a shave measuring [id number]. Jar 0. 0 7:49 PM CDT DERMATOPATHOLOGY [...] characteristic determined by the Dermatopathology Laboratory at [facility], directed by Dr. Johanny Tapia. These tests need not be, and therefore are not, approved by the [place] Food and Drug Administration. The tests are used for clinical purposes. Billing Codes Specimen Charges Stain Charges 44589 1 0 7:49 PM CDT DERMATOPATHOLOGY LABORATORY Embedded Images 0 7:49 PM CDT DERMATOPATHOLOGY LABORATORY Pathology/Cytolog y TISSUE SPECIMEN FROM SKIN / Unknown 02/19/2020 02/20/2020 6:33 AM CDT us Lali Wagner DO LAB - PATHOLOGY/CYTOLOGY ORDERABLES Final Result DERMATOPATHOLOGY LABORATORY [facility] - Department of Dermatology Supervisor [employer] [place] [address], [facility] [phone] documented in this encounter Visit Diagnoses Not on filedocumented in this encounter Care Teams Sas Sql Developer Relationship Specialty Start Date End Date Natalie Vernon MD [address] [place] [address] PCP - General Family Medicine 02/17/23 documented as of this encounter
--- OUTSIDE RECORDS SUMMARY | 2025-05-25 14:38 | XMS_ITS | Patient Health Record ---
Author Organization [facility] les Address [address] [facility] [address] [place] [address] Care Team Providers Care Transmitter Engineer In Charge Name Role Phone Natalie Vernon MD Primary Care Provider Anunicole Molly Alexandre Unavailable [phone] Allergies Allergen (clinical drug ingredient) Drug/Non Drug Allergy documented on EMR Reaction Allergy Type Onset Date Status EPINEPHrine Unknown Drug Allergy 05/19/2006 Acti ve lidocaine Lidocaine Unknown Drug Allergy 05/19/2006 Active codeine Codeine Unknown Drug Allergy 05/19/2006 Active Reason For Referral No Information Medications Medication SIG (Take, Route, Frequency, Duration) Notes Start Date End Date Status Omeprazole Active Metoprolol Succinate ER 25 MG 1 tablet Orally twice a day; Duration: 30 day(s) Active Fluticasone Propionate 50 MCG/ACT 1 spray in each nostril Nasally Once a day; Duration: 30 day(s) Active Estradiol 0.075 MG/24HR 1 patch to skin Transdermal Two times a Week; Duration: 30 day(s) Active DULoxetine HCl 60 MG 1 capsule Orally On ce a day; Duration: 30 days 02/09/2025 Active Albuterol Sulfate HFA 108 (90 Base) MCG/ACT 1 puff as needed Inhalation every 4 hrs prn Active Potassium Citrate ER 15 MEQ (1620 MG) 1 tablet with meals Orally Twice a day; Duration: 30 day(s) Active Telmisartan 20 MG take 1 tablet Orally Once a day; Duration: 30 day(s) Active Gabapentin 100 MG 2 capsules Orally 3 times a day; Duration: 30 day(s) Active Amitriptyline HCl 10 MG take 2 tablets O rally Once a day; Duration: 30 day(s) Active Montelukast Sodium 10 MG 1 tablet Orally Once a day; Duration: 30 day(s) Active DULoxetine HCl 30 MG 1 capsule Orally On ce a day; Duration: 30 days 11/17/2024 Active Eletriptan Hydrobromide 40 MG 1 tablet Orally Once a day; Duration: 1 day(s) Active Social History Tobacco Use: Social History Observation Description Date Details (start date - stop date) Never Smoker NA - NA Household Question Answer Notes Marital status: Tobacco Control (Standard) Question Answer Notes Tobacco use: Nonsmoker Problems Problem Type SNOMED Code ICD Code Onset Dates Problem Status W/U Status Risk Notes Problem Fibromyalgia (675174616) Fibromyalgia (M79.7) Active confirmed Problem Undifferentiated connective tissue disease (371341754) Undifferentiated connective tissue disease (M35.9) Active confirmed Problem Paresthesia (72865359) Paresthesia (R20.2) Active confirmed Problem C-reactive protein abnormal (049112992) CRP elevated (R79.82) Active confirmed Vital Signs Heart Rate 75 /min 02/09/2025 Temperature 98.4 degrees Fahrenheit 02/09/2025 Blood pressure diastolic 70 mm Hg 02/09/2025 Oximetry 95 % 02/09/2025 Height-cm 167.64 cm 02/09/2025 Weight-kg 87.77 kg 02/09/2025 Height 66 in 02/09/2025 Blood pressure systolic 108 mm Hg 02/09/2025 Weight 193.5 lbs 02/09/2025 BMI 31.23 kg/m2 02/09/2025 Encounters Encounter Location Date Provider Diagnosis [facility] [address] [facility] [address] [place] [address] 11/17/2024 Molly Du NAN positive R76.8 ; Undifferentiated connective tissue disease M35.9 ; CRP elevated R79.82 and Fibromyalgia M79.7 [facility] [address] [facility] [address] [place] [address] 02/09/2025 Molly Du NAN positive R76.8 ; Undifferentiated connective tissue disease M35.9 ; CRP elevated R79.82 and Fibromyalgia M79.7 Assessments Encounter Date Diagnosis (ICD Code) Assessment Notes Treatment Notes Treatment Clinical Notes Section Notes 11/17/2024 NAN positive (ICD-10 - R76.8) has several trigger points, andrea also has fibromyalgia , start cymbalta 30mg/day, return in 3 months 02/09/2025 NAN positive (ICD-10 - R76.8) improving, increase cymbalta to 60mg/day, return in 4 months 02/09/2025 Undifferentiated connective tissue disease (ICD-10 - M35.9) improving, increase cymbalta to 60mg/day, return in 4 months 11/17/2024 Undifferentiated connective tissue disease (ICD-10 - M35.9) has several trigger points, andrea also has fibromyalgia , start cymbalta 30mg/day, return in 3 months 11/17/2024 CRP elevated (ICD-10 - R79.82) has several trigger points, andrea also has fibromyalgia , start cymbalta 30mg/day, return in 3 months 02/09/2025 CRP elevated (ICD-10 - R79.82) improving, increase cymbalta to 60mg/day, return in 4 months 11/17/2024 Fibromyalgia (ICD-10 - M79.7) has several trigger points, andrea also has fibromyalgia , start cymbalta 30mg/day, return in 3 months 02/09/2025 Fibromyalgia (ICD-10 - M79.7) improving, increase cymbalta to 60mg/day, return in 4 months Plan Of Treatment [...] Culture 05/11/2024 Next Appt Details Provider Name:Molly Tiago, 06/12 10:45:00 AM, [address] [facility] [address], [place], [address], Insurance Providers Payer Name Payer Address Payer Phone Subscriber Number Group Number Insured Name Patient Relationship to Insured Coverage Start Date Coverage End Date [facility] [employer] [address] [address] [place] [address] [id number] Natalie Harding Self - patient is the insured Medical (General) History Medical History History ICD Code Skin Cancer, Date of Onset: 05/19/2006 ; anxiety asthma endometriosis kidney stones thymoma SIBO endometriosis Surgical History Surgery Date(Month/Year) thymoma removal lithotripsy bowel resection (endometriosis)
--- OUTSIDE RECORDS SUMMARY | 2025-05-25 14:38 | XMS_ITS | Clinical Summary ---
Author Organization [facility] Address [address] [place] [address] Care Team Providers Care Named Account Executive Name Role Phone Oswaldo Mcadams MD Unavailable [phone] Natalie Vernon MD Primary Care Provider + Nathan Bai Unavailable [phone] Allergies Active Allergy Reactions Criticality Noted Date [...] by mouth daily as needed (fever blister) 07/22/20 21 Active cetirizine (ZyrTEC) 10 mg tablet Take 1 tablet (10 mg total) by mouth daily Active gabapentin (NEURONTIN) 100 mg capsule Take 1 capsule (100 mg total) by mouth 3 (three) times a day 02/10/20 23 Active montelukast (SINGULAIR) 10 mg tablet Take 1 tablet (10 mg total) by mouth every morning 07/22/20 22 Active fluticasone propionate (FLONASE) 50 mcg/actuation nasal spray Administer 1 spray into affected nostril(s) daily 12/01/19 23 Active acetaminophen (TYLENOL) 80 mg chewable tablet Take 1 tablet (80 mg total) by mouth every 4 (four) hours as needed for pain Active omeprazole (PriLOSEC) 10 mg capsule Take 1 capsule (10 mg total) by mouth 2 (two) times a day Active dicyclomine (BENTYL) 10 mg capsule Take 1 capsule (10 mg total) by mouth 4 (four) times a day as needed (as needed for abdominal pain) 60 capsule 11 02/10/20 24 Active witch Carlee (TUCKS) 50 % pads, medicatedIndic ations:Hemorrh oids Apply topically 2 (two) times a day 48 each 1 02/10/20 24 Active telmisartan (MICARDIS) 20 mg tablet Take 1 tablet (20 mg total) by mouth daily Active amitriptyline (ELAVIL) 10 mg tabletIndicati ons:Migraine without aura and without status migrainosus, not intractable Take 2 tablets (20 mg total) by mouth nightly 60 tablet 11 03/02/20 24 Active eletriptan (RELPAX) 40 mg tabletIndicati ons:Migraine Take 1 tablet (40 mg total) by mouth once as needed for migraine May repeat one time after 2 hours if needed. 18 tablet 3 03/02/20 24 Active benzonatate (TESSALON) 200 mg capsule TAKE 1 CAPSULE BY MOUTH THREE TIMES DAILY NEEDED FOR COUGH 05/02/20 24 Active estradioL (ESTRACE) 0.01 % (0.1 mg/gram) vaginal creamIndicatio ns:Vaginal dryness Apply nightly to vagina for 2 weeks, then Wednesday// Wednesday 42.5 g 11 05/11/20 25 026 Active metoprolol XL (TOPROL-XL) 50 mg extended release tablet TAKE 1 TABLET(50 MG) BY MOUTH DAILY. FOLLOW UP FOR FURTHER REFILLS 90 tablet 1 05/14/20 25 Active potassium citrate ER (UROCIT-K) 15 mEq tablet extended release Take 1 tablet (15 mEq total) by mouth 2 (two) times a day 07/06/20 23 025 Discontinued(Th erapy completed) amoxicillin-cl avulanate (AUGMENTIN) 875-125 mg per tablet TAKE 1 TABLET BY MOUTH TWICE DAILY UNTIL GONE 06/12/20 24 025 Discontinued methylPREDNISo lone (MEDROL DOSEPACK) 4 mg Dosepack 06/14/20 24 025 Discontinued( erapy completed) estradioL (VIVELLE-DOT) 0.075 mg/24 hrIndications: Hormone replacement therapy (HRT) Place 1 patch on the skin 2 (two) times a week 24 patch 3 09/07/19 25 025 Discontinued( erapy completed) metoprolol XL (TOPROL-XL) 50 mg extended release tablet Take 1 tablet (50 mg total) by mouth daily (Courtesy refill, patient needs a follow up for further refills) 30 tablet 04/12/20 025 Discontinued Active Problems Problem Noted Date Diagnosed Date Non-alcoholic fatty liver disease 02/17/2024 Elevated liver enzymes 02/17/2024 Irritable bowel syndrome with diarrhea Bloating 02/17/2024 Hydronephrosis with urinary obstruction due [...] extremities 12/15/2022 Migraine without aura and [facility] status migrainosus, not intractable 12/09/2021 Assessment & [...] patient was located at work in the [facility]. The patient visit started at 2:05 [...] and/or responsible for any applicable copayments. @JEANNE2@ @WI@ Assessment & Plan (12/09/2021 9:31 AM CDT): [...] patient was located at work in the [facility]. The patient visit started at 8:52 [...] or video visit during the COVID-19 public [facility] emergency to the patient. After being given an opportunity to ask questions about and discuss this type of visit, the patient verbally consented to proceeding with the telephone/video visit. The patient understands that this service replaces an office visit and they may be billed and/or responsible for any applicable copayments. @SIGENC2@ @WI@ Breast pain, left 05/17/2018 History of left breast biopsy 05/17/2018 Adult BMI 25.0-25.9 kg/sq m 05/17/2018 Post-operative state 05/31/2017 Fibroadenoma of left breast 05/31/2017 Mass of mediastinum 05/12/2017 Abdominal tenderness of left lower quadrant 09/2016 Endometriosis 11/02/2016 Encounters Date Type Department Care Team Description 05/11/2025 3:00 PM CDT Office Visit [facility] [address] [facility] [address] [place] [address] Maryam Lopez MD Well woman exam (Primary Dx); Vaginal dryness from Last 3 Months Surgical History Surgery Date Site/Laterality Comments HYSTERECTOMY [...] (SIBO) Arthritis 2021 Cancer (HCC) 2022 Migraines 2011 Hypertension 2023 Kidney stone 2022 Family History [...] cancer Neg Hx Relation Name Status Comments Brother David Cortes Cousin 1st maternal Alive Daughter 1 Komal [...] Not Answered Alcohol Use Standard Drinks/Week Comments No 0 [...] on file Legal Sex Female 2:04 AM GEOCHEMIST Gender Identity Female 12/08/2021 8:49 PM CDT [...] Sign Reading Time Taken Comments Blood Pressure 118/82 05/11/2025 2:41 PM CDT Pulse 85 03/02/2024 1:47 PM CDT Temperature 36.3 C (97.4 F) 07/16/2023 10:44 AM GEOCHEMIST Respiratory Rate 18 03/02/2024 1:47 PM CDT Oxygen Saturation 96% 03/02/2024 1:47 PM CDT Inhaled Oxygen Concentration - - Weight 90.7 kg (200 lb) 05/11/2025 2:41 PM CDT Height 167.6 cm (5' 6) 01/17/2025 3:46 PM CDT Body Mass Index 32.28 01/17/2025 3:46 PM CDT Plan of Treatment Health Maintenance Due Date Last Done Comments Depression Screening 1970 DTaP/Tdap/Td Vaccine (1 - Tdap) 1981 Hepatitis B Screening 1988 Pneumococcal vaccine <65 (1 of 2 - PCV) 1989 Zoster Vaccine (1 of 2) 2020 Covid-19 Vaccine (3 - 2024-2 6 season) 2025 06/28/2021, 10/08/2020 Influenza Vaccine (#1) 2025 Breast Cancer Screening-Mammogram 01/17/2026 01/17/2025, 10/06/2023, 08/05/2022, Additional history exists Regular Well Visit/Exam 18-64 05/11/2026, 05/10/2024, 05/06/2023 Colon Cancer Screening-Colonoscopy 07/16/2033 07/16/2023, 07/16/2023, 04/09/2016, Additional history exists Hepatitis C Screening Completed 06/22/2023 Medical Devices Implanted Type Area [employer] Hatchery Manager Device Identifier Shelf Expiration Date Model / Serial / Lot [employer] Manuel 4.8fr 26cm Taper Tip Low Profile Braid Suture Temporary Pigtail [id number] - [id number] Implanted:Qty: 1 on 04/25/2023 by Jarrett Walker MD at [facility] Stent Right: Ureter [employer] Manuel 12/29/2025 [id number] / / [id number] Procedures Procedure Name Priority Date/Time Associated Diagnosis Comments SCREENING MAMMOGRAM BILATERAL W GABRIELE Schedule Routine, Read Routine (OP Routine) 01/17/2025 3:41 PM CDT Screening mammogram, encounter for COLONOSCOPY Routine 07/16/2023 2:44 PM GEOCHEMIST HEPATITIS C ANTIBODY Routine 06/22/2023 12:41 PM GEOCHEMIST from Last 3 Months or Most Recently Relevant to Health Maintenance Results * Screening Mammogram Bilateral W Gabriele (01/17/2025 3:41 PM CDT) Anatomical Region Laterality Modality Breast Bilateral Mammography Impressions 01/18/2025 7:52 AM CDT Bilateral No evidence of malignancy in either breast. OVERALL BI-RADS FINAL ASSESSMENT: 1 - Negative RECOMMENDATION: Recommend bilateral annual screening mammography. Narrative 01/18/2025 7:52 AM CDT EXAMINATION: Screening Mammogram Bilateral W Gabriele: 01/17/2025 COMPARISON: Relevant prior studies available at the time of interpretation were reviewed. TECHNIQUE: Mammography was performed with 2D and digital breast tomosynthesis (DBT) images. CAD was utilized. BREAST PARENCHYMAL COMPOSITION: The breasts are heterogeneously dense, which may obscure small masses. FINDINGS: Bilateral There is no suspicious mass, calcification, or architectural distortion in either breast. Self Screening Mammogram IMG MAMMO PROCEDURES Fi nal Result * Colonoscopy (07/16/2023 2:44 PM GEOCHEMIST) Anatomical Region Laterality Modality Other Historical Provider MD ENDOSCOPY PROCEDURES Addie l Result * Hepatitis C antibody Blood (06/22/2023 12:41 PM GEOCHEMIST) Hep C Ab Nonreactive Nonreactive [facility] Comment: Interpretive Data Nonreactive: Antibodies to [...] on 2019. Blood 06/22/2023 12:4 1 PM GEOCHEMIST 06/22/2023 4:15 PM GEOCHEMIST us Molly Ordoñez MD LAB MICROBIOLOGY - GENERAL ORDER DONAL Final Result [facility] [address] Department [place] [address] from Last 3 Months or Most Recently Relevant to Health Maintenance Insurance [facility] CHOICE PLUS [facility] CHOICE PLUS [facility] CHOICE PLUS [facility] CHOICE PLUS [facility] CHOICE PLUS Advance Directives For more information, please contact: [phone] * Full Code (Latest Code Status on File) Date Activated Date Inactivated Comments 04/25/2023 4:35 AM 04/25/2023 7:53 PM Care Teams Named Account Executive Relationship Specialty Start Date End Date Natalie Vernon MD PCP - General Family Medicine 06/05/22 Oswaldo Mcadams MD Obstetrics and Gynecology 05/14/17 Nathan Bai PA [address] [place] [address] Referring Physician Physician Title Search Manager 01/26/23
--- OUTSIDE RECORDS SUMMARY | 2025-05-25 14:38 | XMS_ITS | Encounter Summary ---
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
--- NOTE | 2025-05-25 14:52 | ECHO_ITS ---
Patient Info Name: Natalie Saunders Age: 54 years : 1970 Gender: Female Ht: 66 in Wt: 195 lbs BSA: 2.06 m2 HR: 66 bpm BP: 130 / 84 mmHg Technical Quality: Good Exam Date: 05/25/2025 3:05 PM Patient Status: O Admit Date: 05/25/2025 Exam Type: CA echo doppler color flow Complete two-dimensional, color flow and Doppler transthoracic echocardiogram is performed. Campaign Management Senior Manager: Ezio Dunbar III Attending Provider: Neetu PARKER Summary 1. Complete two-dimensional, color flow and Doppler transthoracic echocardiogram is performed. 2. Left ventricular chamber dimension is normal. 3. Left ventricular systolic function is normal, estimated at 60-65. 4. The left ventricular diastolic function is normal. 5. E/e' 9 is minimally elevated. 6. There is trace mitral valve regurgitation. 7. There is trace tricuspid valve regurgitation. 8. No pulmonary hypertension, estimated pulmonary arterial systolic pressure is 26 mmHg. Left Ventricle E/e' 9 is minimally elevated. Left ventricular chamber dimension is normal. Left ventricular systolic function is normal, estimated at 60-65. The left ventricular diastolic function is normal. Right Ventricle Right ventricular chamber dimension is normal. Right ventricular systolic function is normal and with normal TAPSE 2.4 cm. Left Atria Left atrial chamber dimension is normal. Right Atria Right atrial chamber dimension is normal. Aortic Valve The aortic valve is trileaflet. There is no aortic valve stenosis. There is no aortic valve regurgitation. Pulmonic Valve There is no pulmonic regurgitation. Mitral Valve There is no mitral valve stenosis. There is trace mitral valve regurgitation. Tricuspid Valve There is trace tricuspid valve regurgitation. No pulmonary hypertension, estimated pulmonary arterial systolic pressure is 26 mmHg. Pericardium/Pleural There is no pericardial effusion. Inferior Vena Cava Normal inferior vena cava with >50% collapse upon inspiration consistent with normal right atrial pressure, 5 mmHg. Aorta The aortic root size at the sinus of Valsalva is normal. Left Ventricular Outflow Tract Name Value Normal LVOT 2D LVOT Diameter 2.1 cm LVOT Doppler LVOT Peak Velocity 118 cm/s LVOT Peak Gradient 6 mmHg LVOT Mean Gradient 3 mmHg LVOT VTI 27 cm LVOT VTI/AV VTI Ratio 0.9 LVOT Stroke Volume 88 ml LVOT CO 5.9 l/min LVOT CI 2.9 l/min/m2 Pulmonic Valve Name Value Normal PV Doppler PV Peak Velocity 102 cm/s PV Peak Gradient 4 mmHg PV Mean Gradient 2 mmHg Mitral Valve Name Value Normal MV Doppler MV Peak Gradient 5 mmHg MV Mean Gradient 2 mmHg MV Area (Cont Eq VTI) 2.9 cm2 MV Diastolic Function MV E Peak Velocity 102 cm/s MV A Peak Velocity 85 cm/s MV E/A 1.2 MV Decel Time (PW) 182 ms MV Annular TDI MV E/e' (Septal) 11.5 MV E/e' (Lateral) 8.3 MV E/e' (Average) 9.9 Tricuspid Valve Name Value Normal TV Regurgitation Doppler TR Peak Velocity 231 cm/s TR Peak Gradient 21 mmHg Estimated PAP/RSVP RA Pressure 5 mmHg <=5 PA Systolic Pressure 26 mmHg <36 RV Systolic Pressure 26 mmHg <36 TV Annular TDI TV Lateral Mariza s' Velocity 16.4 cm/s >=9.5 Aortic Valve Name Value Normal AV Doppler AV Peak Velocity 135 cm/s AV Peak Gradient 7 mmHg AV Mean Gradient 4 mmHg AV VTI 30 cm AV Area (Cont Eq VTI) 3.0 cm2 >=3.0 AV Area (Cont Eq [place]) 2.9 cm2 AV DI ([place]) 0.87 AV Regurgitation 2D LVOT Area 3.3 cm2 Ventricles Name Value Normal LV Dimensions 2D/MM IVS Diastolic Thickness (2D) 0.8 cm 0.6-1.0 LVID Diastole (2D) 5.2 cm 3.8-5.2 LVIW Diastolic Thickness (2D) 0.8 cm 0.6-0.9 LVID Systole (2D) 3.1 cm 2.2-3.5 LVOT Diameter 2.1 cm LV Mass (2D Cubed) 147.40 g 67.00-162.00 LV Mass Index (2D Cubed) 72 g/m2 43-95 Relative Wall Thickness (2D) 0.31 <=0.42 LV Fractional Shortening/Ejection Fraction 2D/MM LV Fractional Shortening (2D) 41 % 27-45 LV EF (2D Teichholz) 71 % LV Diastolic Volume (4C MOD) 80 ml LV EF (4C MOD) 75 % LV Diastolic Volume (2C MOD) 64 ml LV EF (2C MOD) 76 % LV Diastolic Volume (BP MOD) 76 ml 46-106 LV Diastolic Volume Index (BP MOD) 37 ml/m2 29-61 LV Systolic Volume (BP MOD) 18 ml 14-42 LV Systolic Volume Index (BP MOD) 9 ml/m2 8-24 LV EF (BP MOD) 76 % 54-74 LV Diastolic Length (4C) 8.0 cm LV Systolic Length (4C) 5.8 cm LV Stroke Volume (4C MOD) 59 ml Atria Name Value Normal LA Dimensions LA Volume (4C A-L) 51 ml LA Volume (BP A-L) 56 ml RA Dimensions RA Systolic Major [place] Length (4C) 5.5 cm 2.2-2.8 RA Area (4C) 15.9 cm2 <=18.0 Report Signatures
== END 2025-05-25 14:32 | disposition home or self-care (01) ==
LOC: ANHCARD 14:35
PROVIDERS: PCP Family Medicine; Visit Provider Physician Assistant
DX: R07.9 Chest pain, unspecified (principal); M35.9 Systemic involvement of connective tissue, unspecified; R53.83 Other fatigue
CPT/HCPCS: 93306